=== PATIENT | male | born 1970 | race Two or more races ===

== ENCOUNTER 2020-06-07 07:10 | Outpatient (REF) | payer OTHER, SELFPAY ==
--- NOTE | 2020-06-07 07:19 | XR_ITS ---
EXAMINATION: XR LUMBOSACRAL SPINE CLINICAL INFORMATION: Low back pain COMPARISON: 02/01/2010 TECHNIQUE: Three views of the lumbosacral spine. FINDINGS: The lumbar vertebra are normal in height. No vertebral compression fracture or pars interarticularis defect. At L3-L4, there is chronic, mild loss of disc space and anterior vertebral traction osteophyte formation. At L4-L5, there is moderate disc space narrowing, endplate sclerosis and osteophytosis, with minimal retrolisthesis of L4 on L5. The degenerative disc disease of L4-L5 has worsened compared to 02/01/2010. Sacrum and sacroiliac joints are unremarkable. XR/XR lumbar spine 2-3V IMPRESSION: Compared to 02/01/2010, interval worsening discovertebral degenerative change at L4-L5.
== END 2020-06-07 07:11 | disposition home or self-care (01) ==
LOC: HO.XRAY 07:10
PROVIDERS: Visit Provider Internal Medicine
DX: M54.5 Low back pain (principal)
CPT/HCPCS: 72100

== ENCOUNTER 2020-06-08 06:49 | Outpatient (REF) | payer OTHER, SELFPAY ==
[2020-06-08 08:16] LABS: Alanine Aminotransferase 32 U/L (0-40); Albumin Level 4.7 g/dL (3.5-5.0); Alkaline Phosphatase 90 U/L (39-117); Anion Gap 18 (12-20); Aspartate Amino Transferase 28 U/L (5-37); Bilirubin Total 1.2 mg/dL (0.0-1.0); Blood Urea Nitrogen 55 mg/dL (9-16); Calcium 9.6 mg/dL (8.4-10.2); Carbon Dioxide 22 mmol/L (22-29); Chloride 100 mmol/L (96-108); Cholesterol 231 mg/dL; Estimated Glomerular Filt Rate 35; Glucose Random 146 mg/dL (60-115); HDL Cholesterol 24 mg/dL; Potassium 4.8 mmol/l (3.3-5.1); Sodium 135 mmol/L (135-145); Total Protein 8.3 g/dL (6.5-8.0)
[2020-06-08 08:45] LABS: Triglycerides 1417 mg/dL
[2020-06-08 08:57] LABS: Estimated Average Glucose 171 mg/dL; Hemoglobin A1c % 7.6 %
== END 2020-06-08 06:50 | disposition home or self-care (01) ==
LOC: HO.LAB 06:49
PROVIDERS: PCP Internal Medicine; Visit Provider Internal Medicine
DX: E11.29 Type 2 diabetes mellitus with other diabetic kidney complication (principal); E11.40 Type 2 diabetes mellitus with diabetic neuropathy, unspecified; E11.621 Type 2 diabetes mellitus with foot ulcer; E78.1 Pure hyperglyceridemia; I10 Essential (primary) hypertension; M54.5 Low back pain
CPT/HCPCS: 36415; 80053; 80061; 83036

== ENCOUNTER 2020-09-19 11:21 | Outpatient (REF) | payer OTHER, SELFPAY ==
[2020-09-19 12:00] LABS: MANUAL DIFF FLAG NO
[2020-09-19 12:03] LABS: Basophils Percent Auto 0.3 % (0-2); Eosinophils Absolute Auto 0.1 X10*3/uL (0.0-0.4); Eosinophils Percent Auto 1.7 % (0-4); Hematocrit 43.3 % (42-52); Hemoglobin 13.9 g/dl (14.0-18.0); Imm Gran Abs Auto 0.03 X10*3/uL (0.00-0.03); Imm Gran Pct Auto 0.4 % (0.0-0.4); Lymphocytes Absolute Auto 1.1 X10*3/uL (1.2-4.9); Lymphocytes Percent Auto 14.5 % (20-40); Mean Corpuscular HGB Conc 32.1 g/dl (31.0-36.0); Mean Corpuscular Hemoglobin 28.3 pg (27.0-33.0); Mean Corpuscular Volume 88.2 fL (80-98); Mean Platelet Volume 10.7 fL (9.4-12.4); Monocytes Absolute Auto 0.5 X10*3/uL (0.1-1.2); Monocytes Percent Auto 7.1 % (2-11); Neutrophils Absolute Auto 5.7 X10*3/uL (2.0-8.3); Platelet Count 228 X10*3/uL (160-400); Red Blood Count 4.91 X10*6/uL (4.60-5.80); Red Cell Distribution Width 12.9 % (11.0-16.0); White Blood Count 7.5 X10*3/uL (4.8-10.8)
[2020-09-19 12:39] LABS: Alanine Aminotransferase 23 U/L (0-40); Albumin Level 4.9 g/dL (3.5-5.0); Alkaline Phosphatase 65 U/L (39-117); Anion Gap 16 (12-20); Aspartate Amino Transferase 21 U/L (5-37); Bilirubin Total 1.2 mg/dL (0.0-1.0); Blood Urea Nitrogen 40 mg/dL (9-16); Calcium 10.1 mg/dL (8.4-10.2); Carbon Dioxide 28 mmol/L (22-29); Chloride 101 mmol/L (96-108); Cholesterol 151 mg/dL; Estimated Glomerular Filt Rate 29; Glucose Random 143 mg/dL (60-115); HDL Cholesterol 31 mg/dL; LDL Cholesterol Calculated 87 mg/dl; Potassium 5.6 mmol/L (3.3-5.1); Sodium 139 mmol/L (135-145); Total Protein 7.9 g/dL (6.5-8.0); Triglycerides 169 mg/dL; Uric Acid 9.7 mg/dL (3.4-7.0)
[2020-09-19 13:21] LABS: Estimated Average Glucose 148 mg/dL; Hemoglobin A1c % 6.8 %
== END 2020-09-19 11:22 | disposition home or self-care (01) ==
LOC: HO.LAB 11:21
PROVIDERS: PCP Internal Medicine; Visit Provider Internal Medicine
DX: E11.9 Type 2 diabetes mellitus without complications (principal); E78.1 Pure hyperglyceridemia; I10 Essential (primary) hypertension; M10.9 Gout, unspecified
CPT/HCPCS: 36415; 80053; 80061; 83036; 84550; 85025

== ENCOUNTER → 2020-09-26 13:26 | Outpatient (BNVA) | payer SELFPAY | PROVIDERS: PCP Internal Medicine; Visit Provider Internal Medicine | DX: Z02.79 Encounter for issue of other medical certificate (principal) ==

== ENCOUNTER 2021-03-28 14:43 | Outpatient (REF) | payer OTHER, SELFPAY ==
[2021-03-28 15:31] LABS: Estimated Average Glucose 194 mg/dL; Hemoglobin A1c % 8.4 %
[2021-03-28 15:51] LABS: Alanine Aminotransferase 27 U/L (0-40); Albumin Level 4.9 g/dL (3.5-5.0); Alkaline Phosphatase 118 U/L (39-117); Anion Gap 15 (12-20); Aspartate Amino Transferase 24 U/L (5-37); Bilirubin Total 1.5 mg/dL (0.0-1.0); Blood Urea Nitrogen 29 mg/dL (9-16); Calcium 10.2 mg/dL (8.4-10.2); Carbon Dioxide 28 mmol/L (22-29); Chloride 101 mmol/L (96-108); Estimated Glomerular Filt Rate 39; Glucose Random 212 mg/dL (60-115); Potassium 5.1 mmol/L (3.3-5.1); Sodium 139 mmol/L (135-145); Total Protein 8.4 g/dL (6.5-8.0)
[2021-03-28 16:01] LABS: Uric Acid 10.8 mg/dL (3.4-7.0)
[2021-03-28 17:43] LABS: Creatinine Urine 128.49 mg/dL; Microalbum/Creatinine Ratio Ur 217.1 ug/mg cr
== END 2021-03-28 14:44 | disposition home or self-care (01) ==
LOC: HO.LAB 14:43
PROVIDERS: PCP Internal Medicine; Visit Provider Internal Medicine
DX: Z00.01 Encounter for general adult medical examination with abnormal findings (principal); E11.40 Type 2 diabetes mellitus with diabetic neuropathy, unspecified; E11.22 Type 2 diabetes mellitus with diabetic chronic kidney disease; I12.9 Hypertensive chronic kidney disease with stage 1 through stage 4 chronic kidney disease, or unspecified chronic kidney disease; M10.9 Gout, unspecified; N18.32 Chronic kidney disease, stage 3b
CPT/HCPCS: 36415; 80053; 82043; 83036; 84550

== ENCOUNTER 2021-05-10 16:09 | Outpatient (REF) | payer OTHER, SELFPAY ==
--- NOTE | ~2021-05-10 | US_ITS ---
EXAMINATION: US RETROPERITONEAL LIMITED (RENAL ONLY) CLINICAL INFORMATION: CKD, diabetes. COMPARISON: None TECHNIQUE: Real-time imaging of the kidneys. FINDINGS: RIGHT KIDNEY: 11.4 x 7.1 x 5.9 cm (SAG x AP x TRV). The kidney is normal in size, lobulated in contour, and echogenicity. Renal cortical thickness is normal. No calculi or focal parenchymal lesions. No hydronephrosis. There are small echogenic tiny foci, likely small vascular calcifications. LEFT KIDNEY: 11.4 x 7.0 x 6.1 cm (SAG x AP x TRV). The kidney is normal in size, lobulated in contour, and echogenicity. Renal cortical thickness is normal. No calculi or focal parenchymal lesions. No hydronephrosis. There are small echogenic foci, likely vascular calcifications. US/US renal BI IMPRESSION: Lobulated-appearing bilateral kidneys with small echogenic foci, likely vascular calcifications. There are no echogenic stones or hydronephrosis.
== END 2021-05-10 16:10 | disposition home or self-care (01) ==
LOC: HO.US 16:09
PROVIDERS: PCP Internal Medicine; Visit Provider Internal Medicine Hypertension Specialist
DX: E11.22 Type 2 diabetes mellitus with diabetic chronic kidney disease (principal)
CPT/HCPCS: 76775

== ENCOUNTER 2021-08-07 09:54 | Outpatient (REF) | payer OTHER, SELFPAY ==
[2021-08-07 11:07] LABS: Alanine Aminotransferase 46 U/L (0-40); Albumin Level 4.3 g/dL (3.5-5.0); Alkaline Phosphatase 76 U/L (39-117); Anion Gap 10 (12-20); Aspartate Amino Transferase 35 U/L (5-37); Bilirubin Total 0.9 mg/dL (0.0-1.0); Blood Urea Nitrogen 29 mg/dL (9-16); Calcium 9.8 mg/dL (8.4-10.2); Carbon Dioxide 27 mmol/L (22-29); Chloride 106 mmol/L (96-108); Estimated Average Glucose 237 mg/dL; Estimated Glomerular Filt Rate 44; Glucose Fasting 218 mg/dL (60-99); Hemoglobin A1c % 9.9 %; Potassium 4.6 mmol/L (3.3-5.1); Sodium 138 mmol/L (135-145); Total Protein 7.2 g/dL (6.5-8.0)
== END 2021-08-07 09:55 | disposition home or self-care (01) ==
LOC: HO.10HDL 09:54
PROVIDERS: Visit Provider Internal Medicine
DX: E11.65 Type 2 diabetes mellitus with hyperglycemia (principal); I10 Essential (primary) hypertension; M48.061 Spinal stenosis, lumbar region without neurogenic claudication
CPT/HCPCS: 36415; 80053; 83036

== ENCOUNTER 2021-08-29 10:07 | Outpatient (REF) | payer OTHER, SELFPAY ==
--- NOTE | ~2021-08-29 | XR_ITS ---
EXAMINATION: XR FOOT, RIGHT CLINICAL INFORMATION: Charcot foot COMPARISON: 02/22/2016 TECHNIQUE: AP, lateral, and oblique views of the right foot. FINDINGS: There has been progressive deformity of the right foot since the study from 2015. There is increased osseous excrescence at the base of the fifth metatarsal. There is partial fusion across the tarsometatarsal joints with disorganized appearance. There is irregularity at the articulation of the navicular with the medial cuneiform. Subchondral cyst formation at the head of the first digit proximal phalanx, similar to prior. No acute fracture. Progressive erosion at the head of the fifth metatarsal. Heel spur noted. Soft tissue swelling of the forefoot. XR/XR foot RT min 3V IMPRESSION: Progressive disorganized appearance at the midfoot as detailed above. Progressive erosion at the head of the fifth metatarsal.
[2021-08-29 10:31] LABS: MANUAL DIFF FLAG NO
[2021-08-29 11:14] LABS: Basophils Percent Auto 0.5 % (0-2); Eosinophils Absolute Auto 0.2 X10*3/uL (0.0-0.4); Eosinophils Percent Auto 2.5 % (0-4); Hemoglobin 12.8 g/dl (14.0-18.0); Imm Gran Abs Auto 0.04 X10*3/uL (0.00-0.03); Imm Gran Pct Auto 0.7 % (0.0-0.4); Lymphocytes Absolute Auto 1.1 X10*3/uL (1.2-4.9); Lymphocytes Percent Auto 17.9 % (20-40); Mean Corpuscular HGB Conc 33.7 g/dl (31.0-36.0); Mean Corpuscular Hemoglobin 28.4 pg (27.0-33.0); Mean Corpuscular Volume 84.3 fL (80.0-98.0); Mean Platelet Volume 10.1 fL (9.4-12.4); Monocytes Absolute Auto 0.4 X10*3/uL (0.1-1.2); Monocytes Percent Auto 7.3 % (2-11); Neutrophils Absolute Auto 4.3 x10*3/uL (2.0-8.3); Neutrophils Percent Auto 71.1 % (45-73); Platelet Count 220 X10*3/uL (160-400); Red Blood Count 4.51 X10*6/uL (4.60-5.80); Red Cell Distribution Width 12.4 % (11.0-16.0)
[2021-08-29 12:37] LABS: Alanine Aminotransferase 28 U/L (0-40); Albumin Level 4.3 g/dL (3.5-5.0); Alkaline Phosphatase 77 U/L (39-117); Anion Gap 14 (12-20); Aspartate Amino Transferase 20 U/L (5-37); Bilirubin Total 0.9 mg/dL (0.0-1.0); Blood Urea Nitrogen 24 mg/dL (9-16); Carbon Dioxide 25 mmol/L (22-29); Chloride 105 mmol/L (96-108); Estimated Glomerular Filt Rate 53; Glucose Random 187 mg/dL (60-115); Potassium 5.2 mmol/L (3.3-5.1); Sodium 139 mmol/L (135-145); Total Protein 7.4 g/dL (6.5-8.0)
[2021-08-29 13:36] LABS: Creatinine Urine 174.35 mg/dL; Total Protein Urine Random 69 mg/dL (<12)
[2021-08-30 12:06] LABS: Calcium (PTHI) 9.8 mg/dL (8.6-10.3); PTHI 59 pg/mL (16-77)
== END 2021-08-29 10:08 | disposition home or self-care (01) ==
LOC: HO.XRAY 10:07
PROVIDERS: Absent Provider Internal Medicine Hypertension Specialist; PCP Internal Medicine; Visit Provider Internal Medicine
DX: M14.671 Charcot's joint, right ankle and foot (principal); N18.32 Chronic kidney disease, stage 3b; E11.22 Type 2 diabetes mellitus with diabetic chronic kidney disease
CPT/HCPCS: 36415; 73630; 80053; 83970; 84156; 85025

== ENCOUNTER → 2021-10-30 09:24 | Outpatient (BNVA) | payer OTHER, SELFPAY | PROVIDERS: PCP Internal Medicine; Visit Provider Nurse Practitioner Family | DX: M47.816 Spondylosis without myelopathy or radiculopathy, lumbar region (principal) ==

== ENCOUNTER 2021-12-06 09:27 | Outpatient (REF) | payer OTHER, SELFPAY ==
[2021-12-06 10:41] LABS: Alanine Aminotransferase 21 U/L (0-40); Albumin Level 4.5 g/dL (3.5-5.0); Alkaline Phosphatase 97 U/L (39-117); Anion Gap 14 (12-20); Aspartate Amino Transferase 16 U/L (5-37); Bilirubin Total 1.8 mg/dL (0.0-1.0); Blood Urea Nitrogen 25 mg/dL (9-16); Calcium 9.3 mg/dL (8.4-10.2); Carbon Dioxide 23 mmol/L (22-29); Chloride 104 mmol/L (96-108); Cholesterol 199 mg/dL; Estimated Glomerular Filt Rate 47; Glucose Fasting 233 mg/dL (60-99); HDL Cholesterol 31 mg/dL; LDL Cholesterol Calculated 93 mg/dl; Potassium 4.8 mmol/L (3.3-5.1); Sodium 136 mmol/L (135-145); Total Protein 7.5 g/dL (6.5-8.0); Triglycerides 375 mg/dL
[2021-12-06 10:45] LABS: Estimated Average Glucose 226 mg/dL; Hemoglobin A1c % 9.5 %
[2021-12-06 11:02] LABS: Thyroid Stimulating Hormone 1.07 uIU/mL (0.32-4.0)
== END 2021-12-06 09:28 | disposition home or self-care (01) ==
LOC: HO.10HDL 09:27
PROVIDERS: Visit Provider Internal Medicine
DX: E11.22 Type 2 diabetes mellitus with diabetic chronic kidney disease (principal); E66.8 Other obesity; I10 Essential (primary) hypertension
CPT/HCPCS: 36415; 80053; 80061; 83036; 84443

== ENCOUNTER 2022-01-23 07:25 | Outpatient (REF) | payer OTHER, SELFPAY ==
--- NOTE | ~2022-01-23 | FL_ITS ---
EXAMINATION: XR FL WITH IMAGES CLINICAL INFORMATION: Spondylosis without myelopathy or radiculopathy, lumbar region. COMPARISON: 06/07/2020 TECHNIQUE: Fluoroscopy performed by Dr. Romie Hardwick. Fluoroscopy Time: 0.3 minutes. Cumulative Dose: 13.5 mGy. DAP: 2.05 Gy-cm2. Images: 3. FINDINGS: Images demonstrate needles and contrast adjacent to the L3-L4, L4-L5, and L5-S1 facets bilaterally. FL/FL guidance in treatment room IMPRESSION: Fluoroscopy for pain management procedure.
== END 2022-01-23 07:26 | disposition home or self-care (01) ==
LOC: HO.RADIR 07:25
PROVIDERS: Visit Provider Internal Medicine
DX: M47.816 Spondylosis without myelopathy or radiculopathy, lumbar region (principal); M53.9 Dorsopathy, unspecified
CPT/HCPCS: 64493; 64494

== ENCOUNTER 2022-04-04 11:42 | Outpatient (REF) | payer OTHER, SELFPAY ==
[2022-04-04 13:54] LABS: Estimated Average Glucose 209 mg/dL; Hemoglobin A1c % 8.9 %
[2022-04-04 14:02] LABS: Alanine Aminotransferase 45 U/L (0-40); Albumin Level 4.4 g/dL (3.5-5.0); Alkaline Phosphatase 91 U/L (39-117); Anion Gap 16 (12-20); Aspartate Amino Transferase 90 U/L (5-37); Bilirubin Total 1.3 mg/dL (0.0-1.0); Blood Urea Nitrogen 47 mg/dL (9-16); Calcium 9.8 mg/dL (8.4-10.2); Carbon Dioxide 23 mmol/L (22-29); Chloride 101 mmol/L (96-108); Estimated Glomerular Filt Rate 33; Glucose Random 210 mg/dL (60-115); Sodium 135 mmol/L (135-145); Total Protein 7.3 g/dL (6.5-8.0); Uric Acid 7.7 mg/dL (3.4-7.0)
[2022-04-04 14:08] LABS: Creatinine Urine 158.48 mg/dL; Microalbum/Creatinine Ratio Ur 92.1 ug/mg cr
== END 2022-04-04 11:43 | disposition home or self-care (01) ==
LOC: HO.10HDL 11:42
PROVIDERS: Visit Provider Internal Medicine
DX: Z00.01 Encounter for general adult medical examination with abnormal findings (principal); E11.65 Type 2 diabetes mellitus with hyperglycemia; E11.22 Type 2 diabetes mellitus with diabetic chronic kidney disease; N18.9 Chronic kidney disease, unspecified; R80.9 Proteinuria, unspecified
CPT/HCPCS: 36415; 80053; 82043; 83036; 84550

== ENCOUNTER 2022-07-24 12:25 | Outpatient (REF) | payer OTHER, SELFPAY ==
[2022-07-24 15:29] LABS: Alanine Aminotransferase 26 U/L (0-40); Albumin Level 4.4 g/dL (3.5-5.0); Alkaline Phosphatase 92 U/L (39-117); Anion Gap 13 (12-20); Aspartate Amino Transferase 23 U/L (5-37); Blood Urea Nitrogen 28 mg/dL (9-16); Calcium 9.7 mg/dL (8.4-10.2); Carbon Dioxide 30 mmol/L (22-29); Chloride 102 mmol/L (96-108); Cholesterol 199 mg/dL; Estimated Glomerular Filt Rate 39; Glucose Fasting 158 mg/dL (60-99); HDL Cholesterol 29 mg/dL; Potassium 4.7 mmol/L (3.3-5.1); Sodium 140 mmol/L (135-145); Total Protein 7.3 g/dL (6.5-8.0); Triglycerides 425 mg/dL
[2022-07-24 15:39] LABS: Estimated Average Glucose 206 mg/dL; Hemoglobin A1c % 8.8 %
== END 2022-07-24 12:26 | disposition home or self-care (01) ==
LOC: HO.10HDL 12:25
PROVIDERS: Absent Provider Internal Medicine Hypertension Specialist; Visit Provider Internal Medicine
DX: E11.21 Type 2 diabetes mellitus with diabetic nephropathy (principal); E11.65 Type 2 diabetes mellitus with hyperglycemia; M10.9 Gout, unspecified; R10.32 Left lower quadrant pain; R74.01 Elevation of levels of liver transaminase levels
CPT/HCPCS: 36415; 80053; 80061; 83036

== ENCOUNTER 2022-10-22 10:56 | Outpatient (REF) | payer OTHER, SELFPAY ==
[2022-10-22 13:58] LABS: Alanine Aminotransferase 28 U/L (0-40); Albumin Level 4.4 g/dL (3.5-5.0); Alkaline Phosphatase 90 U/L (39-117); Anion Gap 15 (12-20); Aspartate Amino Transferase 23 U/L (5-37); Bilirubin Total 0.9 mg/dL (0.0-1.0); Blood Urea Nitrogen 34 mg/dL (9-16); Calcium 9.7 mg/dL (8.4-10.2); Carbon Dioxide 26 mmol/L (22-29); Chloride 100 mmol/L (96-108); Estimated Glomerular Filt Rate 32; Glucose Random 314 mg/dL (60-115); Potassium 4.6 mmol/L (3.3-5.1); Sodium 136 mmol/L (135-145); Total Protein 7.4 g/dL (6.5-8.0)
[2022-10-22 14:00] LABS: Estimated Average Glucose 200 mg/dL; Hemoglobin A1c % 8.6 %
== END 2022-10-22 10:57 | disposition home or self-care (01) ==
LOC: HO.10HDL 10:56
PROVIDERS: Visit Provider Internal Medicine
DX: E11.21 Type 2 diabetes mellitus with diabetic nephropathy (principal); E11.65 Type 2 diabetes mellitus with hyperglycemia; E78.2 Mixed hyperlipidemia; I10 Essential (primary) hypertension
CPT/HCPCS: 36415; 80053; 83036

== ENCOUNTER 2022-12-10 14:50 | Outpatient (AMB) | payer OTHER, SELFPAY ==
[2022-12-10 14:54] VITALS: BP 140/82; PULSE 118; O2SAT 96; BMI 39.3
--- NOTE | 2022-12-10 14:54 | A.OFFVIS_ITS ---
Intake Vital Signs 12/10/22 14:54 Height 6 ft 1 in Weight 298 lb 4.567 oz BMI 39.3 BP 140/82 H Blood Pressure Location Lt brachial Position Sitting Pulse 118 H Pulse Source Pulse Oximeter Pulse Oximetry (%) 96 Oxygen Delivery Method Room Air Intake Visit Reasons: T2DM Intake Note: New patient here today for Type 2 Diabetes Mellitus. Previously managed by PCP. Last Diabetic Eye exam:2021 Last Podiatry Visit: Doesn't see a social service manager Random Glucose: 309mg/dl HgA1C: 8.6% 10/22/2022 Allergies No Known Allergies Allergy (Verified 12/10/22 14:55) Medication List - Last Reconciled 12/10/22 by Michael Andrew MD allopurinol 300 mg PO DAILY amlodipine 10 mg PO DAILY atorvastatin 40 mg PO DAILY carvedilol 25 mg PO BID colchicine 0.6 mg PO QID PRN dulaglutide (Trulicity) mg subcut QWEEK fenofibrate 160 mg PO DAILY gabapentin 800 mg PO DAILY insulin glargine (Lantus Solostar U-100 Insulin) units subcut insulin lispro (Humalog KwikPen (U-100) Insulin) subcut omeprazole 20 mg PO DAILY telmisartan-hydrochlorothiazid 80-25 mg 1 tab PO DAILY tizanidine 4 mg PO BEDTIME PRN HPI HPI Comments History of Present Illness Details 52 YO M who is seen in consultation for T2DM at the request of PCP. He has CKD stage IIIB Initially diagnosed with T2DM in 20 yrs ago. Never saw endo . Was initially started on treatment with metformin . Current regimen Lantus 40 units . Humalog 30 units premeals Trulicity not sure what dose Admits to noncompliance to insulin and Trulicity Per the CGM Yahir CGMS is active 42 % of time . data the patient's predicted A1C is 8.4 % Avg glucose is 213 . Variability of 20.8 The patient's blood sugars were in target 25% of the time, above target 75% of the time, and below target 0% of the time Not Reports low sugars . Family history of T2DM in mother ghas Type 2 DM . Has eyes checked yearly, last eye exam last yr , denies retinopathy. Denies neuropathy, not sees podiatry. Has nephropathy, on MAURICIO/ARB. . Has HLD, on statin. Denies CAD. Not Had diabetes education. 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 Absence of acromegalic features. Neck exam reveals nl size thyroid about 15 gms. No thyroid nodules palpable. No carotid bruits present. Lungs CTA. Heart S1 S2, Reg R/R. No M/R/ G. Skin exam reveals absence of vitiligo or acanthosis nigricans. Abdominal exam reveals Soft NT/ND with NA BS. No organomegaly present. Neck Other: . Extrem Other: Visual exam of foot performed. There is amputation of the left 3rd toe No ulcerations or open lesions. No onchomycosis, no callouses.Pulses 2 + distally Sensation decreased to monofilament exam. Vibratory sensation decreased is intact with 128 Hz tuning fork Assessment & Plan Assessment & Plan (1) Uncontrolled type 2 diabetes mellitus with hyperglycemia, with long-term current use of insulin: Code(s): E11.65 - Type 2 diabetes mellitus with hyperglycemia; Z79.4 - prison (current) use of insulin Plan: This is a 52-year-old male with a history of type 2 diabetes in the setting of CKD stage IIIB currently being treated with Trulicity and basal-bolus insulin poor glycemic control . Plan is talk to the patient about being compliant with the insulin . Will have patient see staff educator and reading recovery teacher. We also talked about potential use of an insulin pump in the future. Went over relationship poor glycemic control to development and progression of complications. I also took the liberty of referring the patient to social service manager. Lastly prescribe glucagon rescue Baquimi. I told the patient follow-up with Nephrology Orders: Referrals Diabetes Education Referral E11.65 - Type 2 diabetes mellitus with hyperglycemia, Z79.4 - prison (current) use of insulin Nutrition/Dietitian Referral E11.65 - Type 2 diabetes mellitus with hyperglycemia, Z79.4 - prison (current) use of insulin Podiatry Referral E11.65 - Type 2 diabetes mellitus with hyperglycemia, Z79.4 - prison (current) use of insulin Medications: New glucagon 3 mg/actuation (Baqsimi) 3 mg intranasal ONCE 2 ea 5RF Coding Level of Care Code New Pt Level 5 (66239) Diagnoses Uncontrolled type 2 diabetes mellitus with hyperglycemia, with long-term current use of insulin E11.65; Z79.4 Time Spent (min) 60 Comment Total of 60 minutes was spent reviewing chart, seeing patient and dictating
[2022-12-10 15:10] LABS: Glucose, Whole Blood 309 mg/dL (60-115)
[2022-12-10 15:11] LABS: Glucose, Whole Blood 309 mg/dL (60-115)
== END 2022-12-10 15:42 | disposition home or self-care (01) ==
PROVIDERS: PCP Internal Medicine; Visit Provider Internal Medicine Endocrinology, Diabetes & Metabolism
DX: E11.65 Type 2 diabetes mellitus with hyperglycemia (principal); Z79.4 Long term (current) use of insulin
CPT/HCPCS: 99205

== ENCOUNTER → 2022-12-10 14:50 | Outpatient (BNVA) | payer OTHER, SELFPAY | PROVIDERS: Visit Provider Internal Medicine Endocrinology, Diabetes & Metabolism | DX: E11.65 Type 2 diabetes mellitus with hyperglycemia (principal); Z79.84 Long term (current) use of oral hypoglycemic drugs; Z79.4 Long term (current) use of insulin; Z79.899 Other long term (current) drug therapy | CPT/HCPCS: 82947 ==

== ENCOUNTER 2023-02-05 10:00 | Outpatient (AMB) | payer OTHER, SELFPAY ==
[2023-02-05 10:30] VITALS: BMI 38.1
--- NOTE | 2023-02-05 10:30 | A.OFFVIS_ITS ---
Intake VS Expanded 02/05/23 10:30 02/11/23 09:35 Height 6 ft 1 in 6 ft 1 in Weight 288 lb 12.889 oz 289 lb BMI 38.1 38.1 Intake Visit Reasons: DM Allergies No Known Allergies Allergy (Verified 12/10/22 14:55) HPI Nutrition Presentation Details Pt presents for MNT for T2DM Pt was referred by Dr. Andrew, sleever Pt reports working on reducing carbohydrate intake, verbalizes needing meal re cipes and ideas to continue working on reducing amount of carbohydrates. Reports that most meals at home are made with high starchy foods. Patient also reports in the past he was keeping track foods utilizing and avel which in reducing calories. Patient also has questions regarding insulin pump therapy. Patient was advised to work on meal planning and to learn carbohydrate counting which will be useful in the future if deciding to be on insulin pump therapy. Patient reports that his meals are mainly consisting of a eggs and salad. Today we will focus on choosing lower carb meal options including high-fiber foods and choosing lean protein sources of foods MSU-Svqeysw-Gs.Jeor Equation Height 6 ft 1 in Weight 289 lb Resting Metabolic Rate 2222.53 Calculated Activity Level Sedentary Calories Needed to Maintain Weight 2667.04 Diagnosis Nutrition problem #1 food nutri know defi As related to (etiology) #1 diagnosis As evidenced by (sign/symptom) #1 verbalize inaccurate info Monitoring/Goals Nutrition problem monitoring level of knowledge/skill and weight Most Recent Diabetes Results: Microalb/Creat Ratio 92.1 ug/mg cr 04/04/22 Cholesterol 199 mg/dL 07/24/22 HDL Cholesterol 29 mg/dL 07/24/22 Triglycerides 425 mg/dL 07/24/22 Creatinine 2.16 mg/dL (0.5-1.4) H 10/22/22 Blood Urea Nitrogen 34 mg/dL (9-16) H 10/22/22 Sodium 136 mmol/L (135-145) 10/22/22 Potassium 4.6 mmol/L (3.3-5.1) 10/22/22 Chloride 100 mmol/L (96-108) 10/22/22 Carbon Dioxide 26 mmol/L (22-29) 10/22/22 Calcium 9.7 mg/dL (8.4-10.2) 10/22/22 AST 23 U/L (5-37) 10/22/22 ALT 28 U/L (0-40) 10/22/22 Total Protein 7.4 g/dL (6.5-8.0) 10/22/22 Albumin 4.4 g/dL (3.5-5.0) 10/22/22 [facility] Medical History (Updated 12/10/22 @ 15:06 by Michael Andrew MD) Uncontrolled type 2 diabetes mellitus with hyperglycemia, with long-term current use of insulin Amputation of toe of left foot Family History (Updated 12/10/22 @ 15:03 by Renea Avila MA) Mother Diabetes Father Lung cancer Social History (Updated 12/10/22 @ 15:04 by Renea Avila MA) Household Members: Significant Other Housing: House Alcohol intake: current Alcohol intake frequency: holidays/special occasions only Patient Tobacco Use Status: Never used Tobacco service: No Current occupational status: employed 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 Assessment & Plan Assessment & Plan (1) Uncontrolled type 2 diabetes mellitus with hyperglycemia, with long-term current use of insulin: Code(s): E11.65 - Type 2 diabetes mellitus with hyperglycemia; 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 of insulin Plan: wt: 131 kg Est kcal needs as per MSJ: 2700 (40% carb, 30% protein/fat) Est fluid needs as per 25-30 ml/d: 3300 Est prot per day as per 1 g/kg bw: 131 Recommend fiber intake : 8-10 g per day and gradually increase to 25-28 g per day for women and 35-38 g for men or as tolerated Recommend sodium intake per day : less than 2000 mg Educated patient on: ( R = reviewed V = verbalizes understanding N/R = needs review N/A = not applicable * Food sources of carbohydrate, adequate serving sizes and its role in various health conditions: R * Differences between complex carbohydrates a simple carbohydrates, role of fiber in diet: R * Differences between types of fats and role in diet (mono on saturated fat fatty acids, saturated fatty acids, trans fats): R * Food sources of sodium in salt and healthy modifications for heart health in kidney health: R * Vitamins and minerals: R * Healthy plate method concept: R * Physical activity: Benefits a precaution: R * Hypoglycemia protocol (rule of 15): R * Dietary prevention of Hyperglycemia: R Patient Instructions: keep track of your intake - use phone avel, gradually reduce on portion of carbohydrates by 15-30 g less at meal time Coding Level of Care Code Nutr Indiv Intake (72746) Diagnoses Uncontrolled type 2 diabetes mellitus with hyperglycemia, with long-term current use of insulin E11.65; Z79.4 Time Spent (min) 40
[2023-02-12 12:51] VITALS: BMI 38.1
== END 2023-02-05 11:15 | disposition home or self-care (01) ==
PROVIDERS: PCP Internal Medicine; Visit Provider Dietitian, Registered
DX: E11.65 Type 2 diabetes mellitus with hyperglycemia (principal); Z79.4 Long term (current) use of insulin

== ENCOUNTER → 2023-02-05 10:00 | Outpatient (BNVA) | payer OTHER, SELFPAY | PROVIDERS: PCP Internal Medicine; Visit Provider Dietitian, Registered | DX: E11.65 Type 2 diabetes mellitus with hyperglycemia (principal); Z89.422 Acquired absence of other left toe(s); Z79.4 Long term (current) use of insulin | CPT/HCPCS: 97802 ==

== ENCOUNTER 2023-05-20 12:26 | Outpatient (REF) | payer SELFPAY ==
[2023-05-20 13:24] LABS: MANUAL DIFF FLAG NO
[2023-05-20 13:32] LABS: Basophils Percent Auto 0.3 % (0-2); Eosinophils Absolute Auto 0.1 X10*3/uL (0.0-0.4); Eosinophils Percent Auto 0.9 % (0-4); Hematocrit 41.7 % (42.0-52.0); Hemoglobin 13.1 g/dl (14.0-18.0); Imm Gran Abs Auto 0.02 X10*3/uL (0.00-0.03); Imm Gran Pct Auto 0.2 % (0.0-0.4); Lymphocytes Percent Auto 11.1 % (20-40); Mean Corpuscular HGB Conc 31.4 g/dl (31.0-36.0); Mean Corpuscular Hemoglobin 26.7 pg (27.0-33.0); Mean Corpuscular Volume 85.1 fL (80.0-98.0); Mean Platelet Volume 10.5 fL (9.4-12.4); Neutrophils Absolute Auto 6.9 x10*3/uL (2.0-8.3); Neutrophils Percent Auto 76.5 % (45-73); Platelet Count 207 X10*3/uL (160-400); Red Cell Distribution Width 13.2 % (11.0-16.0)
[2023-05-20 13:42] LABS: Estimated Average Glucose 177 mg/dL; Hemoglobin A1c % 7.8 % (<6.0)
[2023-05-20 13:52] LABS: Alanine Aminotransferase 26 U/L (0-40); Albumin Level 3.8 g/dL (3.5-5.0); Alkaline Phosphatase 82 U/L (39-117); Anion Gap 12 (12-20); Aspartate Amino Transferase 28 U/L (5-37); Bilirubin Total 1.3 mg/dL (0.0-1.0); Blood Urea Nitrogen 20 mg/dL (9-16); Calcium 9.6 mg/dL (8.4-10.2); Carbon Dioxide 27 mmol/L (22-29); Chloride 107 mmol/L (96-108); Cholesterol 197 mg/dL (<200); Estimated Glomerular Filt Rate 48; Glucose Random 156 mg/dL (60-115); HDL Cholesterol 28 mg/dL (>40); LDL Cholesterol Calculated 115 mg/dL (<100); Potassium 4.7 mmol/L (3.3-5.1); Sodium 141 mmol/L (135-145); Total Protein 7.6 g/dL (6.5-8.0); Triglycerides 271 mg/dL (<150); Uric Acid 10.2 mg/dL (3.4-7.0)
[2023-05-20 18:23] LABS: Prostate Specific Antigen Scr 0.55 ng/mL (<0.05-4.0)
[2023-05-21 01:56] LABS: Vitamin B12 444 pg/mL (200-900)
== END 2023-05-20 12:27 | disposition home or self-care (01) ==
LOC: HO.10HDL 12:26
PROVIDERS: Visit Provider Internal Medicine
DX: Z12.5 Encounter for screening for malignant neoplasm of prostate (principal); E11.65 Type 2 diabetes mellitus with hyperglycemia; E78.00 Pure hypercholesterolemia, unspecified; M10.9 Gout, unspecified; I12.9 Hypertensive chronic kidney disease with stage 1 through stage 4 chronic kidney disease, or unspecified chronic kidney disease; E11.22 Type 2 diabetes mellitus with diabetic chronic kidney disease; N18.9 Chronic kidney disease, unspecified; N40.0 Benign prostatic hyperplasia without lower urinary tract symptoms
CPT/HCPCS: 36415; 80053; 80061; 82043; 82570; 82607; 83036; 84153; 84550; 85025

== ENCOUNTER 2023-08-11 10:15 | Outpatient (REF) | payer MEDICAID, SELFPAY ==
[2023-08-11 13:40] LABS: Alanine Aminotransferase 18 U/L (0-40); Albumin Level 4.1 g/dL (3.5-5.0); Alkaline Phosphatase 80 U/L (39-117); Anion Gap 11 (12-20); Aspartate Amino Transferase 20 U/L (5-37); Bilirubin Total 0.9 mg/dL (0.0-1.0); Blood Urea Nitrogen 32 mg/dL (9-16); Calcium 9.6 mg/dL (8.4-10.2); Carbon Dioxide 25 mmol/L (22-29); Chloride 109 mmol/L (96-108); Estimated Glomerular Filt Rate 51; Glucose Random 180 mg/dL (60-115); Potassium 5.2 mmol/L (3.3-5.1); Sodium 140 mmol/L (135-145); Total Protein 7.5 g/dL (6.5-8.0)
[2023-08-11 13:41] LABS: Estimated Average Glucose 148 mg/dL; Hemoglobin A1c % 6.8 % (<6.0)
== END 2023-08-11 10:16 | disposition home or self-care (01) ==
LOC: HO.10HDL 10:15
PROVIDERS: Visit Provider Internal Medicine
DX: Z00.01 Encounter for general adult medical examination with abnormal findings (principal); E11.22 Type 2 diabetes mellitus with diabetic chronic kidney disease; E11.65 Type 2 diabetes mellitus with hyperglycemia; E78.2 Mixed hyperlipidemia; M10.9 Gout, unspecified; N18.9 Chronic kidney disease, unspecified
CPT/HCPCS: 36415; 80053; 83036

== ENCOUNTER 2023-09-11 14:10 | Outpatient (AMB) | payer MEDICAID, SELFPAY ==
[2023-09-11 14:11] VITALS: BP 140/86; PULSE 77; O2SAT 99; BMI 34.8
--- NOTE | 2023-09-11 14:11 | HO.NEPHOV ---
HPI HPI Comments History of Present Illness Details Middle-aged man with a history of longstanding diabetes mellitus of more than 20 years. Overall blood sugar has been well controlled. He was found to have CKD with a serum creatinine 1.2 mg/dL with urine albumin creatinine ratio of 461 and hence this referral. He is history of hypertension. Blood pressure has been well controlled as well. He has had few episodes of mild hyperkalemia with a potassium 5.6. He has not on any MAURICIO inhibitors. I suspect hyperkalemia could have been a reason why he has not on MAURICIO inhibitors. Today he has no new complaints today. He has no headache nausea vomiting no abdominal pain or constipation no urinary symptoms no fever no rash. 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 Vital Signs 09/11/23 14:11 Height 6 ft 1 in Weight 264 lb BMI 34.8 BP 140/86 H Blood Pressure Location Lt brachial Position Sitting Pulse 77 Pulse Source Pulse Oximeter Pulse Oximetry (%) 99 Oxygen Delivery Method Room Air Physical Exam Vital Signs: Last Vital Signs Pulse 77 09/11/23 14:11 BP 140/86 H 09/11/23 14:11 Pulse Ox 99 09/11/23 14:11 Oxygen Delivery Method Room Air 09/11/23 14:11 BMI result Body Mass Index 34.8 Const General: comfortable Nutritional Appearance: well nourished Orientation/consciousness: patient oriented x3 HEENT Head: No normal to inspection Mouth: moist mucous membranes Neck Neck: Yes supple and Yes no JVD Resp Auscultation: clear to auscultation bilaterally, no rales and rub present Cardio Jugular venous distension: no JVD Palpation: no palpable S3 and no palpable S4 Heart sounds: no rubs GI Palpation (GI): Soft to palpation and nontender Percussion: No Fluid wave present General: Yes no CVA tenderness Back/Spine/Pelvis Back: no CVA tenderness Skin General skin exam: no rashes or lesions noted Neuro General: patient oriented x3 Extrem General: Yes no pedal edema and No clubbing Assessment & Plan Assessment & Plan (1) CKD (chronic kidney disease) stage 3, GFR 30-59 ml/min: Code(s): N18.30 - Chronic kidney disease, stage 3 unspecified Plan: . Middle-aged man with stage 3 chronic kidney disease due to underlying diabetic kidney disease. He has non nephrotic range proteinuria again most likely due to underlying diabetic kidney disease. Goal is to slow the progression of renal disease I have discussed importance of tight control of blood pressure and blood sugar to slow the progression. Hemoglobin A1c should be maintained less than 7% and blood pressure less than 130/80 mm Hg. I will recommend starting an MAURICIO inhibitor or ARB for renal protection. With your permission I will start losartan 25 mg once a day and monitor serum creatinine potassium. He would benefit from SGLT2 inhibitors. Continue to avoid nephrotoxic agents including NSAIDs and IV contrast dyes. Blood pressure is acceptable at this time. He should stay on low-sodium diet Would continue to screen for anemia and secondary hyperparathyroidism. History of gout. He is currently on allopurinol. I have discussed low purine diet as well. We will recheck uric acid levels prior to next visit . Orders: Orders Comprehensive Met. Panel 3 Weeks N18.30 - Chronic kidney disease, stage 3 unspecified, N18.9 - Chronic kidney disease, unspecified Creatinine Urine 3 Weeks N05.9 - Unspecified nephritic syndrome with unspecified morphologic changes, N18.30 - Chronic kidney disease, stage 3 unspecified Sodium Urine Random 3 Weeks N18.30 - Chronic kidney disease, stage 3 unspecified, N18.9 - Chronic kidney disease, unspecified Total Protein Urine Random 3 Weeks N18.30 - Chronic kidney disease, stage 3 unspecified UA and rflx microscopic 3 Weeks N18.30 - Chronic kidney disease, stage 3 unspecified Uric Acid 3 Weeks N18.30 - Chronic kidney disease, stage 3 unspecified Parathyroid Hormone Intact 3 Weeks N18.30 - Chronic kidney disease, stage 3 unspecified Complete Blood Count Auto Diff 3 Weeks N18.30 - Chronic kidney disease, stage 3 unspecified Medications: New losartan 25 mg PO DAILY 30 tabs 3RF Coding Level of Care Code New Pt Level 4 (35646) Diagnoses CKD (chronic kidney disease) stage 3, GFR 30-59 ml/min N18.30 Results Reviewed Nephrology Results: Hgb 13.1 g/dl (14.0-18.0) L 05/20/23 WBC 9.0 X10*3/uL (4.8-10.8) 05/20/23 Plt Count 207 X10*3/uL (160-400) 05/20/23 Sodium 140 mmol/L (135-145) 08/11/23 Potassium 5.2 mmol/L (3.3-5.1) H 08/11/23 Chloride 109 mmol/L (96-108) H 08/11/23 Carbon Dioxide 25 mmol/L (22-29) 08/11/23 BUN 32 mg/dL (9-16) H 08/11/23 Creatinine 1.46 mg/dL (0.5-1.4) H 08/11/23 Calcium 9.6 mg/dL (8.4-10.2) 08/11/23 Urine Creatinine 278.90 mg/dL 05/20/23
== END 2023-09-11 14:33 | disposition home or self-care (01) ==
PROVIDERS: PCP Internal Medicine; Referring Provider Internal Medicine; Visit Provider Internal Medicine Hypertension Specialist
DX: N18.30 Chronic kidney disease, stage 3 unspecified (principal)
CPT/HCPCS: 99204

== ENCOUNTER → 2023-09-11 14:10 | Outpatient (BNVA) | payer MEDICAID, SELFPAY | PROVIDERS: PCP Internal Medicine; Referring Provider Internal Medicine; Visit Provider Internal Medicine Hypertension Specialist | DX: N18.30 Chronic kidney disease, stage 3 unspecified (principal) | CPT/HCPCS: 99202 ==

== ENCOUNTER 2023-10-06 10:02 | Outpatient (REF) | payer MEDICAID, SELFPAY ==
[2023-10-06 10:22] LABS: MANUAL DIFF FLAG NO
[2023-10-06 10:33] LABS: Appearance Urine Clear; Color Urine Yellow; Glucose Urine UA Negative (Negative); Leukocyte Esterase Urine Moderate (2+) (Negative); Nitrite Urine Negative (Negative); PH 5.5 (5.0-9.0); UMIC TRIGGER UA YES; Urine Blood Small (1+) (Negative); Urine Ketones Negative (Negative); Urine Protein 100 (2+) mg/dL (Neg-Trace)
[2023-10-06 10:47] LABS: Bacteria Urine None Seen (None Seen); Basophils Percent Auto 0.5 % (0-2); Eosinophils Absolute Auto 0.1 X10*3/uL (0.0-0.4); Eosinophils Percent Auto 1.8 % (0-4); Hematocrit 40.2 % (42.0-52.0); Hemoglobin 12.9 g/dl (14.0-18.0); Hyaline Casts Urine 0-2 /LPF (0-2); Imm Gran Abs Auto 0.02 X10*3/uL (0.00-0.03); Imm Gran Pct Auto 0.3 % (0.0-0.4); Lymphocytes Absolute Auto 0.9 X10*3/uL (1.2-4.9); Lymphocytes Percent Auto 14.7 % (20-40); Mean Corpuscular HGB Conc 32.1 g/dl (31.0-36.0); Mean Corpuscular Hemoglobin 27.3 pg (27.0-33.0); Mean Corpuscular Volume 85.2 fL (80.0-98.0); Mean Platelet Volume 10.6 fL (9.4-12.4); Monocytes Absolute Auto 0.4 X10*3/uL (0.1-1.2); Monocytes Percent Auto 6.7 % (2-11); Neutrophils Absolute Auto 4.6 x10*3/uL (2.0-8.3); Platelet Count 167 X10*3/uL (160-400); Red Blood Count 4.72 X10*6/uL (4.60-5.80); Red Cell Distribution Width 13.4 % (11.0-16.0); WBC Urine 21-50 /HPF (0-5)
[2023-10-06 11:17] LABS: Parathyroid Hormone Intact 80.6 pg/mL (8.7-77.1)
[2023-10-06 11:22] LABS: Alanine Aminotransferase 15 U/L (0-40); Albumin Level 3.9 g/dL (3.5-5.0); Alkaline Phosphatase 82 U/L (39-117); Anion Gap 13 (12-20); Aspartate Amino Transferase 15 U/L (5-37); Bilirubin Total 0.8 mg/dL (0.0-1.0); Blood Urea Nitrogen 33 mg/dL (9-16); Calcium 9.9 mg/dL (8.4-10.2); Carbon Dioxide 27 mmol/L (22-29); Chloride 105 mmol/L (96-108); Estimated Glomerular Filt Rate 52; Glucose Random 162 mg/dL (60-115); Potassium 4.7 mmol/L (3.3-5.1); Sodium 140 mmol/L (135-145); Total Protein 7.4 g/dL (6.5-8.0); Uric Acid 8.9 mg/dL (3.4-7.0)
[2023-10-06 11:35] LABS: Creatinine Urine 146.39 mg/dL; Total Protein Urine Random 77 mg/dL (<12)
== END 2023-10-06 10:03 | disposition home or self-care (01) ==
LOC: HO.10HDL 10:02
PROVIDERS: Visit Provider Internal Medicine Hypertension Specialist
DX: N05.9 Unspecified nephritic syndrome with unspecified morphologic changes (principal); N18.30 Chronic kidney disease, stage 3 unspecified
CPT/HCPCS: 36415; 80053; 81001; 82570; 83970; 84156; 84300; 84550; 85025

== ENCOUNTER 2023-10-07 13:50 | Outpatient (AMB) | payer MEDICAID, SELFPAY ==
[2023-10-07 14:03] VITALS: BP 118/84; PULSE 113; O2SAT 97; BMI 34.6
--- NOTE | 2023-10-07 14:03 | HO.NEPHOV ---
Vital Signs 10/07/23 14:03 Height 6 ft 1 in Weight 262 lb BMI 34.6 BP 118/84 Blood Pressure Location Lt brachial Position Sitting Pulse 113 H Pulse Source Pulse Oximeter Pulse Oximetry (%) 97 Oxygen Delivery Method Room Air Intake Visit Reasons: Ckd, stage 3/ 1 MO FU [employer]asting Required: No Accompanied by: Self / Same As Patient Allergies No Known Allergies Allergy (Verified 10/07/23 14:05) HPI Comments Details: Middle-aged man with a history of longstanding diabetes mellitus of more than 20 years. Overall blood sugar has been well controlled. He was found to have CKD with a serum creatinine 1.2 mg/dL with urine albumin creatinine ratio of 461 and hence this referral. He is history of hypertension. Blood pressure has been well controlled as well. He has had few episodes of mild hyperkalemia with a potassium 5.6. He has not on any MAURICIO inhibitors. I suspect hyperkalemia could have been a reason why he has not on MAURICIO inhibitors. Today he has no new complaints today. He has no headache nausea vomiting no abdominal pain or constipation no urinary symptoms no fever no rash. 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 Physical Exam Vital Signs: Last Vital Signs Pulse 113 H 10/07/23 14:03 BP 118/84 10/07/23 14:03 Pulse Ox 97 10/07/23 14:03 Oxygen Delivery Method Room Air 10/07/23 14:03 BMI result Body Mass Index 34.6 Results Reviewed Nephrology Results: Hgb 12.9 g/dl (14.0-18.0) L 10/06/23 WBC 6.0 X10*3/uL (4.8-10.8) 10/06/23 Plt Count 167 X10*3/uL (160-400) 10/06/23 Sodium 140 mmol/L (135-145) 10/06/23 Potassium 4.7 mmol/L (3.3-5.1) 10/06/23 Chloride 105 mmol/L (96-108) 10/06/23 Carbon Dioxide 27 mmol/L (22-29) 10/06/23 BUN 33 mg/dL (9-16) H 10/06/23 Creatinine 1.42 mg/dL (0.5-1.4) H 10/06/23 Calcium 9.9 mg/dL (8.4-10.2) 10/06/23 PTH Intact 80.6 pg/mL (8.7-77.1) H 10/06/23 Urine Protein 100 (2+) mg/dL (Neg-Trace) H 10/06/23 Urine Creatinine 146.39 mg/dL 10/06/23 Assessment & Plan Assessment & Plan (1) CKD (chronic kidney disease) stage 3, GFR 30-59 ml/min: Code(s): N18.30 - Chronic kidney disease, stage 3 unspecified Category: Medical Plan: . Middle-aged man with stage 3 chronic kidney disease due to underlying diabetic kidney disease. He has non nephrotic range proteinuria again most likely due to underlying diabetic kidney disease. Goal is to slow the progression of renal disease I have discussed importance of tight control of blood pressure and blood sugar to slow the progression. Hemoglobin A1c should be maintained less than 7% and blood pressure less than 130/80 mm Hg. I will recommend keeping him on start losartan 25 mg once a day and monitor serum creatinine potassium. He would benefit from SGLT2 inhibitors. Continue to avoid nephrotoxic agents including NSAIDs and IV contrast dyes. Blood pressure is acceptable at this time. He should stay on low-sodium diet Would continue to screen for anemia and secondary hyperparathyroidism. History of gout. He is currently on allopurinol. I have discussed low purine diet as well. Uric acid was 8.9 . Orders: Orders Basic Metabolic Panel 4 Months N18.30 - Chronic kidney disease, stage 3 unspecified Creatinine Urine 4 Months N05.9 - Unspecified nephritic syndrome with unspecified morphologic changes, N18.30 - Chronic kidney disease, stage 3 unspecified Total Protein Urine Random 4 Months N18.30 - Chronic kidney disease, stage 3 unspecified UA and rflx microscopic 4 Months N18.30 - Chronic kidney disease, stage 3 unspecified Complete Blood Count no Diff 4 Months N18.30 - Chronic kidney disease, stage 3 unspecified Coding Level of Care Code Est Pt Level 4 (46300) Diagnoses CKD (chronic kidney disease) stage 3, GFR 30-59 ml/min N18.30
== END 2023-10-07 14:26 | disposition home or self-care (01) ==
PROVIDERS: PCP Internal Medicine; Referring Provider Internal Medicine; Visit Provider Internal Medicine Hypertension Specialist
DX: N18.30 Chronic kidney disease, stage 3 unspecified (principal)
CPT/HCPCS: 99214

== ENCOUNTER → 2023-10-07 13:50 | Outpatient (BNVA) | payer MEDICAID, SELFPAY | PROVIDERS: PCP Internal Medicine; Visit Provider Internal Medicine Hypertension Specialist | DX: E11.22 Type 2 diabetes mellitus with diabetic chronic kidney disease (principal); N18.30 Chronic kidney disease, stage 3 unspecified | CPT/HCPCS: 99212 ==

== ENCOUNTER 2024-01-30 09:49 | Outpatient (REF) | payer MEDICAID, SELFPAY ==
[2024-01-30 11:56] LABS: Alanine Aminotransferase 20 U/L (0-40); Alkaline Phosphatase 86 U/L (39-117); Anion Gap 7 (12-20); Aspartate Amino Transferase 21 U/L (5-37); Bilirubin Total 1.4 mg/dL (0.0-1.0); Blood Urea Nitrogen 43 mg/dL (9-16); Calcium 9.8 mg/dL (8.4-10.2); Carbon Dioxide 29 mmol/L (22-29); Chloride 109 mmol/L (96-108); Cholesterol 144 mg/dL (<200); Estimated Glomerular Filt Rate 48; Glucose Random 147 mg/dL (60-115); HDL Cholesterol 26 mg/dL (>40); LDL Cholesterol Calculated 99 mg/dL (<100); Potassium 5.1 mmol/L (3.3-5.1); Sodium 140 mmol/L (135-145); Total Protein 7.1 g/dL (6.5-8.0); Triglycerides 98 mg/dL (<150)
[2024-01-30 12:32] LABS: Estimated Average Glucose 128 mg/dL; Hemoglobin A1c % 6.1 % (<6.0)
== END 2024-01-30 09:50 | disposition home or self-care (01) ==
LOC: HO.LAB 09:49
PROVIDERS: PCP Internal Medicine; Visit Provider Internal Medicine
DX: I12.9 Hypertensive chronic kidney disease with stage 1 through stage 4 chronic kidney disease, or unspecified chronic kidney disease (principal); E11.22 Type 2 diabetes mellitus with diabetic chronic kidney disease; N18.9 Chronic kidney disease, unspecified; E11.621 Type 2 diabetes mellitus with foot ulcer
CPT/HCPCS: 36415; 80053; 80061; 83036

== ENCOUNTER 2024-03-02 09:03 | Outpatient (REF) | payer MEDICAID, SELFPAY ==
[2024-03-02 11:12] LABS: Appearance Urine Cloudy; Color Urine Dark Yellow; Glucose Urine UA Negative (Negative); Leukocyte Esterase Urine Negative (Negative); Nitrite Urine Negative (Negative); UMIC TRIGGER UA YES; Urine Blood Negative (Negative); Urine Ketones Trace mg/dL (Negative); Urine Protein 100 (2+) mg/dL (Neg-Trace)
[2024-03-02 11:21] LABS: Hematocrit 36.6 % (42.0-52.0); Hemoglobin 12.7 g/dl (14.0-18.0); Mean Corpuscular HGB Conc 34.7 g/dl (31.0-36.0); Mean Corpuscular Hemoglobin 27.7 pg (27.0-33.0); Mean Corpuscular Volume 79.9 fL (80.0-98.0); Mean Platelet Volume 10.7 fL (9.4-12.4); Platelet Count 202 X10*3/uL (160-400); Red Blood Count 4.58 X10*6/uL (4.60-5.80); Red Cell Distribution Width 12.8 % (11.0-16.0); White Blood Count 10.3 X10*3/uL (4.8-10.8)
[2024-03-02 11:26] LABS: Anion Gap 14 (12-20); Blood Urea Nitrogen 49 mg/dL (9-16); Calcium 10.1 mg/dL (8.4-10.2); Carbon Dioxide 23 mmol/L (22-29); Chloride 105 mmol/L (96-108); Estimated Glomerular Filt Rate 38; Glucose Random 185 mg/dL (60-115); Sodium 137 mmol/L (135-145)
[2024-03-02 11:35] LABS: Bacteria Urine None Seen (None Seen); Granular Casts Urine Present; RBC Urine 0-2 /HPF (0-2); WBC Urine 0-5 /HPF (0-5)
[2024-03-02 11:54] LABS: Creatinine Urine 245.89 mg/dL; Total Protein Urine Random 143 mg/dL (<12)
== END 2024-03-02 09:04 | disposition home or self-care (01) ==
LOC: HO.10HDL 09:03
PROVIDERS: Visit Provider Internal Medicine Hypertension Specialist
DX: N05.9 Unspecified nephritic syndrome with unspecified morphologic changes (principal); N18.30 Chronic kidney disease, stage 3 unspecified
CPT/HCPCS: 36415; 80048; 81001; 82570; 84156; 85027

== ENCOUNTER 2024-03-22 14:12 | Outpatient (REF) | payer MEDICAID, SELFPAY ==
[2024-03-22 15:45] LABS: Appearance Urine Clear; Color Urine Yellow; Glucose Urine UA Negative (Negative); Leukocyte Esterase Urine Negative (Negative); Nitrite Urine Negative (Negative); PH 5.5 (5.0-9.0); Specific Gravity - Urine 1.015 (1.005-1.025); UMIC TRIGGER UA YES; Urine Blood Negative (Negative); Urine Ketones Negative (Negative); Urine Protein 30 (1+) mg/dL (Neg-Trace)
[2024-03-22 15:47] LABS: Bacteria Urine None Seen (None Seen); Hyaline Casts Urine 0-2 /LPF (0-2); RBC Urine 0-2 /HPF (0-2); Squamous Epithelial Cell Urine 0-2 /HPF (0-2); WBC Urine 0-5 /HPF (0-5)
[2024-03-22 16:35] LABS: Anion Gap 12 (12-20); Blood Urea Nitrogen 55 mg/dL (9-16); Calcium 9.7 mg/dL (8.4-10.2); Carbon Dioxide 25 mmol/L (22-29); Chloride 106 mmol/L (96-108); Estimated Glomerular Filt Rate 22; Glucose Random 128 mg/dL (60-115); Potassium 5.2 mmol/L (3.3-5.1); Sodium 138 mmol/L (135-145)
== END 2024-03-22 14:13 | disposition home or self-care (01) ==
LOC: HO.LAB 14:12
PROVIDERS: PCP Internal Medicine; Visit Provider Internal Medicine Hypertension Specialist
DX: E11.22 Type 2 diabetes mellitus with diabetic chronic kidney disease (principal); E11.65 Type 2 diabetes mellitus with hyperglycemia; N18.30 Chronic kidney disease, stage 3 unspecified; Z79.4 Long term (current) use of insulin; Z89.422 Acquired absence of other left toe(s)
CPT/HCPCS: 36415; 80048; 81001; 99212

== ENCOUNTER 2024-03-22 14:12 | Outpatient (AMB) | payer MEDICAID, SELFPAY ==
[2024-03-22 14:14] VITALS: BP 104/64; PULSE 81; O2SAT 98; BMI 33.9
--- NOTE | 2024-03-22 14:14 | HO.NEPHOV_ITS ---
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 Required: No Accompanied by: Self / Same As Patient Allergies No Known Allergies Allergy (Verified 03/22/24 14:16) Medication List - Last Reconciled 03/22/24 by Paolo Greene MD allopurinol 300 mg PO DAILY amlodipine 10 mg PO DAILY aspirin 81 mg PO DAILY carvedilol 25 mg PO BID colchicine 0.6 mg PO BID PRN indomethacin 50 mg PO TID PRN insulin glargine (Lantus Solostar U-100 Insulin) units subcut insulin lispro (Humalog KwikPen (U-100) Insulin) subcut losartan 25 mg PO DAILY rosuvastatin 40 mg PO BEDTIME HPI Comments Details: Middle-aged man with a history of longstanding diabetes mellitus of more than 20 years. Overall blood sugar has been well controlled. He was found to have CKD with a serum creatinine 1.2 mg/dL with urine albumin creatinine ratio of 461 and hence this referral. He is history of hypertension. Blood pressure has been well controlled as well. He has had few episodes of mild hyperkalemia with a potassium 5.6. He has not on any MAURICIO inhibitors. I suspect hyperkalemia could have been a reason why he has not on MAURICIO inhibitors. Today he has no new complaints today. He has no headache nausea vomiting no abdominal pain or constipation no urinary symptoms no fever no rash. All systems were reviewed 10/07/23 Tolerating Losartan Still has foot ulcer 03/22/24 Underwent foot surgery Now on BACTRIM for the past 1 week for a total of 3 weeks [facility] Medical History (Updated 09/11/23 @ 14:31 by Paolo Greene MD) Uncontrolled type 2 diabetes mellitus with hyperglycemia, with long-term current use of insulin Amputation of toe of left foot Family History Mother Diabetes Father Lung cancer Social History Household Members: Significant Other Housing: House Alcohol intake: current Alcohol intake frequency: holidays/special occasions only Patient Tobacco Use Status: Never used Tobacco service: No Current occupational status: employed 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 Physical Exam Vital Signs: Last Vital Signs Pulse 81 03/22/24 14:14 BP 104/64 03/22/24 14:14 Pulse Ox 98 03/22/24 14:14 Oxygen Delivery Method Room Air 03/22/24 14:14 BMI result Body Mass Index 33.9 Const General: comfortable; No acute distress Orientation/consciousness: patient oriented x3 Eyes General: appearance normal, both eyes and all related structures Visual Shultz: normal visual shultz by confrontation Neck Neck: Yes supple and Yes no JVD Resp Effort & Inspection: normal respiratory effort and respiratory effort not decreased Auscultation: rhonchi Cardio Palpation: no palpable S3 and no palpable S4 Heart sounds: no rubs GI Inspection: Yes normal to inspection Palpation (GI): Soft to palpation Percussion: Yes normal to percussion Auscultation: normal bowel sounds General: Yes no CVA tenderness Back/Spine/Pelvis Back: no CVA tenderness Skin General skin exam: no petechiae and no purpura Neuro General: patient oriented x3 and no focal motor deficits Extrem General: No clubbing and No edema Results Reviewed Nephrology Results: Hgb 12.7 g/dl (14.0-18.0) L 03/02/24 WBC 10.3 X10*3/uL (4.8-10.8) 03/02/24 Plt Count 202 X10*3/uL (160-400) 03/02/24 Sodium 137 mmol/L (135-145) 03/02/24 Potassium 5.0 mmol/L (3.3-5.1) 03/02/24 Chloride 105 mmol/L (96-108) 03/02/24 Carbon Dioxide 23 mmol/L (22-29) 03/02/24 BUN 49 mg/dL (9-16) H 03/02/24 Creatinine 1.89 mg/dL (0.5-1.4) H 03/02/24 Calcium 10.1 mg/dL (8.4-10.2) 03/02/24 PTH Intact 80.6 pg/mL (8.7-77.1) H 10/06/23 Urine Protein 100 (2+) mg/dL (Neg-Trace) H 03/02/24 Urine Creatinine 245.89 mg/dL 03/02/24 Assessment & Plan Assessment & Plan (1) CKD (chronic kidney disease) stage 3, GFR 30-59 ml/min: Code(s): N18.30 - Chronic kidney disease, stage 3 unspecified Category: Medical Plan: . Middle-aged man with stage 3 chronic kidney disease due to underlying diabetic kidney disease. He has non nephrotic range proteinuria again most likely due to underlying diabetic kidney disease. Goal is to slow the progression of renal disease I have discussed importance of tight control of blood pressure and blood sugar to slow the progression. Hemoglobin A1c should be maintained less than 7% and blood pressure less than 130/80 mm Hg. I will recommend keeping him on start losartan 25 mg once a day and monitor serum creatinine potassium. He would benefit from SGLT2 inhibitors. Continue to avoid nephrotoxic agents including NSAIDs and IV contrast dyes. Blood pressure is acceptable at this time. He should stay on low-sodium diet Would continue to screen for anemia and secondary hyperparathyroidism. History of gout. He is currently on allopurinol. I have discussed low purine diet as well. Uric acid was 8.9 Continue to avoid nephrotoxins including Bactrim Check LAbs today and decide on Bactrim . Orders: Orders Basic Metabolic Panel Today N18.30 - Chronic kidney disease, stage 3 unspecified Basic Metabolic Panel Today N18.30 - Chronic kidney disease, stage 3 unspecified Coding Level of Care Code Est Pt Level 4 (66671) Diagnoses CKD (chronic kidney disease) stage 3, GFR 30-59 ml/min N18.30
== END 2024-03-22 16:26 | disposition home or self-care (01) ==
PROVIDERS: PCP Internal Medicine; Visit Provider Internal Medicine Hypertension Specialist
DX: N17.9 Acute kidney failure, unspecified (principal); E11.22 Type 2 diabetes mellitus with diabetic chronic kidney disease; N18.30 Chronic kidney disease, stage 3 unspecified
CPT/HCPCS: 99214

== ENCOUNTER 2024-04-07 15:35 | Outpatient (REF) | payer MEDICAID, SELFPAY ==
--- NOTE | 2024-04-07 16:31 | MHC.AU.MED ---
Medical Clearance for Hearing Instrumentation Date: 04/07/24 Patient Name: Benjamin Bautista Date of : 1970 Primary Care Provider: Referring Provider: Devi Moran MD We have seen your patient on 04/07/24 and have determined that they are a candidate for amplification (See accompanying report). Specifically, they would benefit from: Hearing aid use in both ears There is a statute that addresses Medical Evaluation Requirements prior to fitting a patient with a hearing aid. According to [place] statute 265 CMR:6.03(1), (a) General. Except as provided in 265 CMR 6.03(1)(b), a zinc chloride operator shall not sell a hearing aid unless the prospective user has presented to the zinc chloride operator a written statement signed by a licensed physician that states that the patient's hearing loss has been medically evaluated and the patient may be considered a candidate for a hearing aid. The medical evaluation must have taken place within the preceding six months. Please note: Due to the [place] Statute referenced above, we cannot accept a signature other than that of a licensed physician. [employer] and PA signatures cannot be accepted. I am in agreement with the above recommendation. There is no medical contraindication for hearing instrumentation. Physician Signature Date Physician Name (Printed)
== END 2024-04-07 15:36 | disposition home or self-care (01) ==
LOC: HO.SH 15:35
PROVIDERS: Visit Provider Internal Medicine
DX: Z01.118 Encounter for examination of ears and hearing with other abnormal findings (principal); Z46.1 Encounter for fitting and adjustment of hearing aid; H90.3 Sensorineural hearing loss, bilateral
CPT/HCPCS: 92557; 92591

== ENCOUNTER 2024-09-07 15:26 | Outpatient (REF) | payer MEDICAID, SELFPAY ==
--- OUTSIDE RECORDS SUMMARY | 2024-09-07 18:21 | XMS_ITS | Clinical Summary ---
Author Organization [facility] Address [address] [place] [address] Phone Care Team Providers Care [employer] Tool Maker Name Role Phone Devi Moran MD Primary Care Provider [phone] Allergies No known active allergies Medications carvedilol (COREG) 25 MG tablet Take 25 mg by mouth twice a day Active colchicine 0.6 MG tablet Take 0.6 mg by mouth if needed Active gabapentin (NEURONTIN) 800 MG tablet Take 800 mg by mouth 1 (one) time each day Active Insulin Lispro (HUMALOG KWIKPEN SC) Three times a day three times a day before meals Active telmisartan-hydr oCHLOROthiazide (MICARDIS HCT) 80-25 MG per tablet Take 1 tablet by mouth 1 (one) time each day Active Melatonin 5 MG tablet Take 5 mg by mouth at bed time Active atorvastatin (LIPITOR) 40 MG tablet Take 40 mg by mouth 1 (one) time each day 06/21/2020 Active fenofibrate (TRIGLIDE) 160 MG tablet Take 160 mg by mouth 1 (one) time each day 06/21/2020 Active omeprazole (PriLOSEC) [address] capsule Take 20 mg by mouth if needed Active Lantus SoloStar 100 UNIT/ML injection Inject 30 Units under the skin every night 05/23/2020 Active Trulicity 1.5 MG/0.5ML solution pen-injector 02/10/2021 Active amLODIPine (NORVASC) 5 MG tablet Take 5 mg by mouth 1 (one) time each day 04/24/2021 Active Active Problems Problem Noted Date Diagnosed Date Hypertension 10/11/2021 Chronic kidney disease, stage 3 (moderate) 10/11 Type 2 diabetes mellitus with complication Overview (10/12/2019): with diabetic foot infection and diabetic neuropathy Hyperlipidemia Bacteremia Overview (10/12/2019): MSSA Immunizations Name Administration Dates Next Due Influenza, Quadrivalent, Preservative Free 07/26 Pneumococcal Polysaccharide 12/07/2018 Family History Medical History Relation Comments Diabetes Mother Relation Status Comments Father Mother Alive Social History Tobacco Use Types Packs/Day Years Used Date Smoking Tobacco: Never Smokeless Tobacco: Never Tobacco Cessation:Counseling Given: Not Answered Alcohol Use Standard Drinks/Week Comments Yes 0 (1 standard drink = 0.6 oz pur e alcohol) social drinker Sex and Gender Information Value Date Recorded Sex Assigned at Not on file Legal Sex Male 2:26 PM EST Gender Identity Not on file Sexual Orientation Not on file Last Filed Vital Signs Vital Sign Reading Time Taken Comments Blood Pressure 120/76 04/30/2022 2:08 PM EST Pulse 83 04/30/2022 2:08 PM EST Temperature - - Respiratory Rate - - Oxygen Saturation 96% 04/30/2022 2:08 PM EST Inhaled Oxygen Concentration - - Weight 134 kg (294 lb 6.4 oz) 05/08/2021 3:18 PM EST Height - - Body Mass Index - - Plan of Treatment Health Maintenance Due Date Last Done Comments Hepatitis B Vaccine (1 of 3 - 19+ 3-dose series) 09/09 Pneumococcal Vaccine: Pediat rics (0 to 5 Years) and At-Risk Patients (6 to 64 Years) (2 of 2 - PCV) 12/08/2019 12/07/2018 Diabetes: Hemoglobin A1C 07/25/2020 Diabetes: Ophthalmology Exam 07/25/2020 Diabetes: Pedal Pulse Checked 07/25/2020 Diabetes: Sensory Foot Exam 07/25/2020 Diabetes: Visual Foot Exam 07/25/2020 Colorectal Cancer Screening: Annual FOBT 09/09/2020 Colorectal Cancer Screening: Colonoscopy 09/09/2020 Colorectal Cancer Screening: Sigmoidoscopy 09/09/2020 Influenza Vaccine (Season Ended) 2025 07/26/[address] [place] [address] [place] [address] [employer] [phone] [place] [address] [place] [address] [employer] [phone] [place] [address] Care Teams [employer] Maker Relationship Specialty Start Date End Date Devi Moran MD [address] PCP - General Internal Medicine 04/10/21
--- OUTSIDE RECORDS SUMMARY | 2024-09-07 18:21 | XMS_ITS | Clinical Summary ---
Author Organization 175 [facility] Address [address] [place] [address] Phone Care Team Providers Care Joint Finisher Name Role Phone Devi Moran MD Primary Care Provider [phone] Allergies No known active allergies Medications pen needle, diabetic 32 gauge x needle by Does not apply route. Active amLODIPine (NORVASC) 5 mg tablet Take 2 tablets (10 mg total) by mouth 1 (one) time each day. Active carvediloL (COREG) 25 mg tablet Take 25 mg by mouth 2 times daily (with meals). Active colchicine (MITIGARE) 0.6 mg capsule capsule Take by mouth. Active collagenase (SANTYL) 250 unit/gram ointment Active gabapentin (NEURONTIN) 300 mg capsule Take 1 capsule (300 mg total) by mouth 3 (three) times a day. Active insulin glargine (Lantus Solostar U-100 Insulin) 100 unit/mL (3 mL) injection pen Inject 15 Units under the skin at bedtime. 10/11/2021 Active insulin lispro (HumaLOG KwikPen Insulin) 100 unit/mL injection pen 8 Units 3 (three) times a day before meals. Active rosuvastatin (CRESTOR) 40 mg tablet Take 1 tablet (40 mg total) by mouth 1 (one) time each day. Active allopurinoL (ZYLOPRIM) 100 mg tablet Take 1 tablet (100 mg total) by mouth 1 (one) time each day. Active atorvastatin (LIPITOR) 80 mg tablet Take 1 tablet (80 mg total) by mouth 1 (one) time each day. Active aspirin 81 mg EC tablet Take 1 tablet (81 mg total) by mouth 1 (one) time each day. 05/27/2024 Active losartan (COZAAR) 25 mg tablet Take 1 tablet (25 mg total) by mouth 1 (one) time each day. 06/12/2024 Active Active Problems Problem Noted Date Diagnosed Date Other acute osteomyelitis of left foot Morbid obesity with BMI of 40.0-44.9, adult 03/03 Type 2 diabetes mellitus wit h hyperglycemia, with long-term current use of insulin 03/26/2024 DDD (degenerative disc disease), lumbar 05/22/20 22 Overview (03/26/2024): Last Assessment & Plan: Patient is 3 weeks s/p L4-5 OLIF and pedicle screw fixation for stenosis and degenerative disc disease. He states he has persistent low back pain, has not noticed the numbness in the legs, but states he has not specifically been paying attention for it. He states it still hard to get out of bed in the morning, similar to preop. He rates his back pain on average 7-8/10. He has been using Dilaudid, has been on gabapentin for a long time for his right leg. He denies any wound drainage, fevers, sweats chills, bowel bladder issues. He states he has been active and walking regularly. Mr. Bautista has a follow-up appointment in 6 weeks with lumbar spine x-rays with Dr. Madsen. Hopefully with time he notes continued improvement in his back pain as things heal. I asked him to call with any concerns or questions prior to his appointment. All postop questions answered. He did request a refill on his Zanaflex which he uses at bedtime, sent to his pharmacy. Hypertension 10/11/2021 Foot callus 07/01/2018 Foot pain 07/01/2018 Encounters Date Type Department Care Team Description 08/17/2024 9:45 AM EDT Office Visit Orthopedic Surgery - [place] [address] [place] [phone] Prabhjot Chavarria, ALTAF Poorly controlled type 2 diabetes mellitus with neuropathy (CMS/HCC) (Primary Dx); Metatarsalgia of left foot; Ulcer of heel and midfoot, left, with fat layer exposed (CMS/HCC) 08/17/2024 Telephone Orthopedic Surgery [facility] [address] [phone] Danielle Lea 08/11/2024 11:00 AM EDT Office Visit Orthopedic [facility] [address] [phone] Prabhjot Chavarria, DPM Poorly controlled type 2 diabetes mellitus with neuropathy (CMS/HCC) (Primary Dx); Cellulitis of left foot; Ulcer of heel and midfoot, left, with fat layer exposed (CMS/HCC) 07/01/2024 11:00 AM EST Office Visit Orthopedic [place] [address] [phone] Prabhjot Chavarria, DPM Poorly controlled type 2 diabetes mellitus with neuropathy (CMS/HCC) (Primary Dx); Dehiscence of operative wound, subsequent encounter; Ulcer of heel and midfoot, left, with fat layer exposed (CMS/HCC) 06/29/2024 1:00 PM EST Office Visit Infectious Disease - [place] [address] [phone] Olesya Nguyễn MD Diabetic foot infection ([facility]) (Primary Dx); Wound dehiscence; Other acute osteomyelitis of left foot (CMS/HCC) 06/24/2024 11:00 AM EST Office Visit Orthopedic Surgery [place] [address] [phone] Prabhjot Chavarria, DPM Poorly controlled type 2 diabetes mellitus with neuropathy (CMS/HCC) (Primary Dx); Dehiscence of operative wound, subsequent encounter; Midfoot ulceration, left, with necrosis of muscle (CMS/HCC) 06/17/2024 1:30 PM EST Office Visit Orthopedic Surgery [place] [address] [phone] Prabhjot Chavarria, DPM Poorly controlled type 2 diabetes mellitus with neuropathy (CMS/HCC) (Primary Dx); Dehiscence of operative wound, subsequent encounter; Ulcer of heel and midfoot, left, with fat layer exposed (CMS/HCC) 06/11/2024 12:45 PM EST Office Visit Orthopedic Surgery - [address] [phone] Prabhjot Chavarria DPM Post-operative state (Primary Dx); Ulcer of heel and midfoot, left, with fat layer exposed (CMS/HCC) from Last 3 Months Immunizations Name Administration Dates Next Due Influenza trivalent, 0.5mL, preservative free (Fluarix; FluLaval; Fluzone) ages 6mo and older (Afluria) 3 years and older 03/08/2020,07/26/2019 Pneumococcal polysaccharide 23 valent (Pneumovax 23) 2yo and older 12/07/2018 Td Tetanus diptheria (Tdvax) 7yo and older 07/03 Surgical History Surgery Date Site/Laterality Comments CHOLECYSTECTOMY PROCEDURE: RI LAPAROSCOPY SURG CHOLECYSTECTOMY OTHER SURGICAL HISTORY 05/01/2022 PROCEDURE: RI ARTHRODESIS POSTERIOR INTERBODY 1 NTRSPC LUMBAR; COMMENT: L4-5 OLIF, pedicle screw fixation, Dr. Madsen TOE AMPUTATION Left Left 3rd toe amp FOOT SURGERY x2 Medical History Medical History Date Comments Diabetes mellitus type 2, co ntrolled, with complications (CMS/HCC) DX:Diabetes mellitus type 2, controlled, with complications (HCC) Essential hypertension DX:Essent ial hypertension CKD (chronic kidney disease) stage 3, GFR 30-59 ml/min (CMS/HCC) Lumbar degenerative disc disease Gout Family History Medical History Relation Name Comments Diabetes Mother Relation Name Status Comments Mother Social History Tobacco Use Types Packs/Day Years Used Date Smoking Tobacco: Never Smokeless Tobacco: Never Tobacco Cessation:Counseling Given: Not Answered Alcohol Use Standard Drinks/Week Comments Never 0 (1 standard drink = 0.6 oz pur e alcohol) Sex and Gender Information Value Date Recorded Sex Assigned at Not on file Legal Sex Male 11:45 PM EST Gender Identity Not on file Sexual Orientation Not on file Obstetrics History Last Filed Vital Signs Vital Sign Reading Time Taken Comments Blood Pressure 122/78 06/29/2024 1:14 PM EST Pulse 94 06/29/2024 1:14 PM EST Temperature 36.5 ??C (97.7 ??F) 06/29/2024 1:14 PM ES T Respiratory Rate 18 06/07/2024 2:42 PM EST Oxygen Saturation 98% 06/29/2024 1:14 PM EST Inhaled Oxygen Concentration - - Weight 120 kg (265 lb) 08/17/2024 9:57 AM EDT Height 185.4 cm (6' 0.99 ) 08/17/2024 9:57 AM ED T Body Mass Index 34.97 08/17/2024 9:57 AM EDT Plan of Treatment Health Maintenance Due Date Last Done Comments Diabetes: Annual Retina Eye Exam 09/09/1981 Hepatitis B Vaccines (1 of 3 - 19+ 3-dose series) 09/09/1990 Pneumococcal Vaccine: 50+ Years (2 of 2 - PCV) 12/08/2019 12/07/2018 Pneumococcal Vaccine: Pediatrics (0 to 5 Years) and At-Risk Patients (6 to 64 Years) (2 of 2 - PCV) 12/08/2019 12/07/2018 COVID-19 Vaccine (3 - Pfizer risk series) 11/01/2020 10/04/2020, 09/11/2020 Zoster Vaccines (1 of 2) 09/09/2021 Cholesterol Screening (Lipid Panel) 05/12/2022 Colorectal Cancer Screening: Colonoscopy 05/12/2022 Depression Screening 05/12/2022 HIV Screening 05/12/2022 Hepatitis C Screening 05/12/2022 Social Influencers of Health Screening 05/12/2022 DTaP,Tdap,and Td Vaccines (2 - Td or Tdap) 07/03/2022 07/03/2012 Diabetes: Annual Urine Albumin-Creatinine Ratio (uACR) 12/24/2023 10/30/2021 Diabetes: Blood Sugar Control Test (HGBA1C) 12/24/2023 10/30/2021 Influenza Vaccine (#1) 2024 03/08/2020, 2019 Diabetes: Annual Foot Exam 06/01/2025 06/01/2024 Diabetes: Annual GFR (Glomerular Filtration Rate) 06/29/2025 06/29/2024, 06/07/2024, 06/02/2024, Additional history exists Hypertension/CHF/CAD Annual BMP Blood Test 06/29/2025 06/29/2024, 06/07/2024, 06/02/2024, Additional history exists HIB Vaccines Aged Out No longer eligi ble based on patient's age to complete this topic HPV Vaccines Aged Out No longer eligi ble based on patient's age to complete this topic Hepatitis A Vaccines Aged Out No long er eligible based on patient's age to complete this topic IPV Vaccines Aged Out No longer eligi ble based on patient's age to complete this topic MMR Vaccines Aged Out No longer eligi ble based on patient's age to complete this topic Meningococcal ACWY Vaccine Aged Out N o longer eligible based on patient's age to complete this topic Meningococcal B Vaccine Aged Out No l onger eligible based on patient's age to complete this topic RSV Immunization Patients Under 20 months Aged Out No longer eligible based on patient's age to complete this topic Varicella Vaccines Aged Out No longer eligible based on patient's age to complete this topic Procedures Procedure Name Priority Date/Time Associated Diagnosis Comments CBC WITH AUTO DIFFERENTIAL Routine 06/29/2024 1:44 PM EST Diabetic foot infection (CMS/HCC) Wound dehiscence CBC AND DIFFERENTIAL Routine 06/29/2024 1:44 PM EST Diabetic foot infection (CMS/HCC) Wound dehiscence BASIC METABOLIC PANEL Routine 06/29/2024 1:44 PM EST DEVANTE (acute kidney injury) (CMS/[facility]) XR FOOT 3+ VIEWS LEFT Routine 06/11/2024 1:01 PM EST Post-operative state HM URINE ALBUMIN CREATININE RATIO Routine 10/30/2021 HEMOGLOBIN A1C Routine 10/30/2021 from Last 3 Months or Most Recently Relevant to Health Maintenance Results * (ABNORMAL) CBC auto differential (06/29/2024 1:44 PM EST) WBC 8.3 4.8 - 10.8 K/[facility] LAB HEMETOLOGY METHOD 06/29/2024 6:30 PM EST [facility] RBC 4.50 4.50 - 5.50 M/[facility] LAB HEMETOLOGY METHOD 06/29/2024 6:30 PM [facility] Hemoglobin 12.2(L) 13.5 - 17.5 g/dL LAB HEMETOLOGY METHOD 06/29/2024 6:30 PM [facility] Hematocrit 39.7(L) 42.0 - 54.0 % LAB HEMETOLOGY METHOD 06/29/2024 6:30 PM [facility] MCV 88.0 79.0 - 98.0 FL LAB HEMETOLOGY METHOD 06/29/2024 6:30 PM [facility] MCH 27.1 27.0 - 32.0 pcg LAB HEMETOLOGY METHOD 06/29/2024 6:30 PM [facility] MCHC 30.7(L) 32.0 - 37.0 g/dL LAB HEMETOLOGY METHOD 06/29/2024 6:30 PM [facility] RDW 13.7 11.0 - 15.0 % LAB HEMETOLOGY METHOD 06/29/2024 6:30 PM [facility] Platelets 180 130 - 400 K/mcL LAB HEMETOLOGY METHOD 06/29/2024 6:30 PM [facility] MPV 11.6(H) 7.0 - 11.0 FL LAB HEMETOLOGY METHOD 06/29/2024 6:30 PM [facility] NRBC 0.0 <1.0 % LAB HEMETOLOGY METHOD 06/29/2024 6:30 PM [facility] NRBC Absolute 0.00 <0.10 K/mcL LAB HEMETOLOGY METHOD 06/29/2024 6:30 PM [facility] Neutrophils Relative 65.9 % LAB HEMETOLOGY METHOD 06/29/2024 6:30 PM [facility] Lymphocytes Relative 23.6 % LAB HEMETOLOGY METHOD 06/29/2024 6:30 PM [facility] Monocytes Relative 6.4 % LAB HEMETOLOGY METHOD 06/29/2024 6:30 PM EST [facility] Eosinophils Relative 3.1 % LAB HEMETOLOGY METHOD 06/29/2024 6:30 PM [facility] Basophils Relative 0.5 % LAB HEMETOLOGY METHOD 06/29/2024 6:30 PM [facility] Immature Granulocytes Relative 0.5 % LAB HEMETOLOGY METHOD 06/29/2024 6:30 PM EST [facility] Neutrophils Absolute 5.46 1.50 - 7.00 K/mcL LAB HEMETOLOGY METHOD 06/29/2024 6:30 PM [facility] Lymphocytes Absolute 1.95 1.00 - 5.00 K/mcL LAB HEMETOLOGY METHOD 06/29/2024 6:30 PM [facility] Monocytes Absolute 0.53 0.20 - 1.00 K/mcL LAB HEMETOLOGY METHOD 06/29/2024 6:30 PM EST [facility] Eosinophils Absolute 0.26 0.00 - 0.50 K/mcL LAB HEMETOLOGY METHOD 06/29/2024 6:30 PM EST [facility] Basophils Absolute 0.04 0.00 - 0.20 K/mcL LAB HEMETOLOGY METHOD 06/29/2024 6:30 PM [facility] Immature Granulocytes Absolute 0.04(H) 0.00 - 0.03 K/mcL LAB HEMETOLOGY METHOD 06/29/2024 6:30 PM [facility] Blood Venous blood specimen / Unknown Venipuncture / Unknown 06/29/2024 1:44 PM EST 06/29/2024 1:44 PM EST us Olesya Nguyễn MD LAB BLOOD ORDERABLES Final Resul t [facility] [address] [place] [address], * (ABNORMAL) Basic metabolic panel (06/29/2024 1:44 PM EST) Sodium 136 133 - 145 mmol/L LAB CHEMISTRY METHOD 06/29/2024 6:47 PM [facility] Potassium 5.0 3.5 - 5.5 mmol/L LAB CHEMISTRY METHOD 06/29/2024 6:47 PM [facility] Chloride 101 96 - 110 mmol/L LAB CHEMISTRY METHOD 06/29/2024 6:47 PM [facility] CO2 30 21 - 32 mmol/L LAB CHEMISTRY METHOD 06/29/2024 6:47 PM [facility] Anion Gap 5 3 - 11 LAB CHEMISTRY METHOD 06/29/2024 6:47 PM [facility] Glucose 111(H) 70 - 100 mg/dL LAB CHEMISTRY METHOD 06/29/2024 6:47 PM [facility] BUN 24 5 - 25 mg/dL LAB CHEMISTRY METHOD 06/29/2024 6:47 PM [facility] Creatinine 1.68(H) 0.70 - 1.30 mg/dL LAB CHEMISTRY METHOD 06/29/2024 6:47 PM [facility] eGFR 49(L) >=60 mL/min/1. 73m2 LAB CHEMISTRY METHOD 06/29/2024 6:47 PM [facility] Comment:Calculation based on the??Chronic Kidney Disease Epidemiology Collaboration (CKD-EPI) equation refit??without adjustment for race. BUN/Creatinine Ratio 14.3 LAB CHEMISTRY METHOD 06/29/2024 6:47 PM [facility] Calcium 10.0 8.5 - 10.5 mg/dL LAB CHEMISTRY METHOD 06/29/2024 6:47 PM [facility] Blood Venous blood specimen / Unknown Venipuncture / Unknown 06/29/2024 1:44 PM EST 06/29/2024 1:44 PM EST Wander Abdalla MD LAB BLOOD ORDERABLES Fi nal Result [facility] [address] [place] [address], * XR Foot 3+ Views Left (06/11/2024 1:01 PM EST) Anatomical Region Laterality Modality Lower Extremities, Foot Left Computed Radiography Narrative 06/15/2024 8:32 PM EST Left foot 3 views nonweightbearing: Previous metatarsal head resections of the third fourth fifth metatarsal with partial resection of the fifth digit and fourth digit base. ??No subcutaneous gas. ??Increased lateral column soft tissue inflammation. Prabhjot Chavarria DPM IMG XR PROCEDURES Final Res ult * HM Urine Albumin Creatinine Ratio (10/30/2021) Urine Albumin Creatinine Ratio Abstracted Historical Provider HEALTH MAINTENANCE Final Result * (ABNORMAL) Hemoglobin A1c (10/30/2021) Hemoglobin A1C 10.2(A) <=6.5 % Blood Venous blood specimen / Unknown Historical [facility] LAB BLOOD ORDERABLES Brenda l Result from Last 3 Months or Most Recently Relevant to Health Maintenance Insurance MEDICAID - [place] Advance Directives Documents on File Type Date Recorded Patient Adz Worker Expl anation Health Care Decision (hx) 10/13/2023 AD HENNESSY DIRECTIVE Health Care Decision (hx) 10/13/2023 AD HENNESSY DIRECTIVE Health Care Decision (hx) 10/13/2023 AD HENNESSY DIRECTIVE Health Care Decision (hx) 10/13/2023 AD HENNESSY DIRECTIVE Health Care Decision (hx) 10/13/2023 AD HENNESSY DIRECTIVE Health Care Decision (hx) 10/13/2023 AD HENNESSY DIRECTIVE Health Care Decision (hx) 10/13/2023 AD HENNESSY DIRECTIVE Health Care Decision (hx) 10/13/2023 AD HENNESSY DIRECTIVE Health Care Decision (hx) 10/13/2023 AD HENNESSY DIRECTIVE Health Care Decision (hx) 10/13/2023 AD HENNESSY DIRECTIVE Health Care Decision (hx) 10/13/2023 AD HENNESSY DIRECTIVE Health Care Decision (hx) 10/13/2023 AD HENNESSY DIRECTIVE Health Care Decision (hx) 10/13/2023 AD HENNESSY DIRECTIVE Health Care Decision (hx) 10/13/2023 AD HENNESSY DIRECTIVE Health Care Decision (hx) 10/13/2023 AD HENNESSY DIRECTIVE Health Care Decision (hx) 10/13/2023 AD HENNESSY DIRECTIVE * Full Code - Default (Latest Code Status on File) Date Activated Date Inactivated Comments 06/01/2024 5:36 AM 06/07/2024 7:37 PM This is orde r is used when code status has not been discussed with the patient, or code status is otherwise unknown/unconfirmed To update the patient's code status, place a code status order. Do not modify or discontinue any currently active code status orders. Care Teams Joint Finisher Relationship Specialty Start Date End Date Devi Moran MD [address] PCP - General Internal Medicine 09/11/21
--- OUTSIDE RECORDS SUMMARY | 2024-09-07 18:21 | XMS_ITS | Clinical Summary ---
Author Organization [facility] Address [address] [place] [address] Care Team Providers Care Dance Professor Name Role Phone Unavailable Primary Care Provider Unavailabl e Social History Tobacco Use Types Packs/Day Years Used Date Smoking Tobacco: Never Assessed Sex and Gender Information Value Date Recorded Sex Assigned at Not on file Legal Sex Male 6:05 PM EDT Gender Identity Not on file Sexual Orientation Not on file Plan of Treatment Health Maintenance Due Date Last Done Comments Hepatitis C Screening 1970 DTaP/Tdap/Td (1 - Tdap) 09/09/1989 Hep B (1 of 3 - 19+ 3-dose series) 09/09/1990 Pneumococcal 50+ years (1 of 1 - PCV) 09/09/2021 Zoster (Shingrix) (1 of 2) 09/09/2021 COVID-19 Vaccine ( - 2023-2 5 season) 2024 Influenza (#1) 2024 HPV Vaccine Aged Out No longer eligi ble based on patient's age to complete this topic Hep A Aged Out No longer eligi ble based on patient's age to complete this topic Hib Aged Out No longer eligi ble based on patient's age to complete this topic Meningococcal ACWY Aged Out No longer eligible based on patient's age to complete this topic
== END 2024-09-07 15:27 | disposition home or self-care (01) ==
LOC: HO.HAP 15:26
PROVIDERS: Visit Provider Internal Medicine
DX: Z46.1 Encounter for fitting and adjustment of hearing aid (principal); H90.3 Sensorineural hearing loss, bilateral
CPT/HCPCS: V5011; V5160; V5261

== ENCOUNTER 2024-09-21 09:11 | Outpatient (REF) | payer MEDICAID, SELFPAY ==
--- OUTSIDE RECORDS SUMMARY | 2024-09-21 09:50 | XMS_ITS | Clinical Summary ---
Author Organization [facility] Address [address] [place] [address] Phone Care Team Providers Care System Admin Name Role Phone Devi Moran MD Primary Care Provider Allergies No known active allergies Medications carvedilol [...] neuropathy Hyperlipidemia Bacteremia Overview (10/12/2019): MSSA Immunizations Immunization Administration Dates Next Due Influenza, Quadrivalent, Preservative [...] - 19+ 3-dose series) 09/09 Pneumococcal Vaccine: 50+ Years (2 of 2 - PCV) 020 12/07/2018 Diabetes: Hemoglobin A1C 07/25/2020 Diabetes: Ophthalmology Exam 07/25/2020 Diabetes: Pedal Pulse Checked 07/25/2020 Diabetes: Sensory Foot Exam 07/25/2020 Diabetes: Visual Foot Exam 07/25/2020 Colorectal Cancer Screening: Annual FOBT 09/09/2020 Colorectal Cancer Screening: Colonoscopy 09/09/2020 Colorectal Cancer Screening: Sigmoidoscopy 09/09/2020 Influenza Vaccine (Season Ended) 2025 07/26/19 20 Pneumococcal Vaccine: Peds ( 0 to 5 Years) and At-Risk Patients (6 to 49 Years) Discontinued 12/07/2018 Insurance [facility] [employer] [phone] [place] [address] [facility] [employer] [phone] [place] [address] Care Teams System Admin Relationship Specialty Start Date End Date Devi Moran MD [facility] [address] PCP - General Internal Medicine 04/10/21
--- OUTSIDE RECORDS SUMMARY | 2024-09-21 09:50 | XMS_ITS | Clinical Summary ---
Author Organization 175 [facility] Address 175 [place] [address] Phone Care Team Providers Care Healthcare Specialist Name Role Phone Devi Moran MD Primary Care Provider [phone] Allergies No known active allergies Medications pen [...] Date Other acute osteomyelitis of left foot ([facility] V24, [facility] V28) 06/01/2024 Morbid obesity with BMI of 4 0.0-44.9, adult ([facility] V24, [facility] V28) 03/26/2024 Type 2 diabetes mellitus wit h hyperglycemia, with long-term current use of insulin ([facility] V24, [facility] V28) 03/26/2024 DDD (degenerative disc disease), lumbar 05/22/20 [...] Encounters Date Type Department Care Team Description 09/16/2024 9:45 AM EDT Office Visit Orthopedic Surgery - [address] [phone] Prabhjot Chavarria, DPM Poorly controlled type 2 diabetes mellitus with neuropathy (CMS/HCC V24, CMS/HCC V28) (Primary Dx); Left foot pain; History of amputation of left foot through metatarsal bone (CMS/HCC V24, CMS/HCC V28); Ulcer of heel and midfoot, left, with fat layer exposed (CMS/HCC V24, CMS/HCC V28) 08/17/2024 9:45 AM EDT Office Visit Orthopedic Surgery [place] [phone] [phone] Prabhjot Chavarria A, DPM Poorly controlled type 2 diabetes mellitus with neuropathy (CMS/HCC V24, CMS/HCC V28) (Primary Dx); Metatarsalgia of left foot; Ulcer of heel and midfoot, left, with fat layer exposed (CMS/[facility] V24, CMS/HCC V28) 08/17/2024 Telephone Orthopedic Surgery [facility] [address] [phone] Danielle Lea 08/11/2024 11:00 AM EDT Office Visit Orthopedic Surgery [facility] [address] [phone] Prabhjot Chavarria, DPM Poorly controlled type 2 diabetes mellitus with neuropathy (CMS/HCC V24, CMS/HCC V28) (Primary Dx); Cellulitis of left foot; Ulcer of heel and midfoot, left, with fat layer exposed ([facility] V24, CMS/[facility] V28) 07/01/2024 11:00 AM EST Office Visit Orthopedic Surgery [facility] [address] [phone] Prabhjot Chavarria A, DPM Poorly controlled type 2 diabetes mellitus with neuropathy (CMS/HCC V24, CMS/HCC V28) (Primary Dx); Dehiscence of operative wound, subsequent encounter; Ulcer of heel and midfoot, left, with fat layer exposed (CMS/[facility] V24, CMS/HCC V28) 06/29/2024 1:00 PM EST Office Visit Infectious Disease - [place] 175 [facility] [address] [place] [phone] Olesya Nguyễn MD Diabetic foot infection ([facility] V24, [facility] V28) (Primary Dx); Wound dehiscence; Other acute osteomyelitis of left foot ([facility] V24, [facility] V28) 06/24/2024 11:00 AM EST Office Visit Orthopedic Surgery - [place] [address] [place] [phone] Prabhjot Chavarria DPM Poorly controlled type 2 diabetes mellitus with neuropathy ([facility] V24, [facility] V28) (Primary Dx); Dehiscence of operative wound, subsequent encounter; Midfoot ulceration, left, with necrosis of muscle ([facility] V24, [facility] V28) from Last 3 Months Immunizations Name Administration Dates Next Due Influenza trivalent, 0.5mL, preservative free (Fluarix; FluLaval; Fluzone) ages 6mo and older (Afluria) 3 years and older 03/08/2020,07/26/2019 Pneumococcal polysaccharide 23 valent (Pneumovax 23) 2yo and older 12/07/2018 Td Tetanus diptheria (Tdvax) 7yo and older 07/03 Surgical History Surgery Date Site/Laterality Comments CHOLECYSTECTOMY PROCEDURE: [place] LAPAROSCOPY SURG CHOLECYSTECTOMY OTHER SURGICAL HISTORY 05/01/2022 PROCEDURE: [place] ARTHRODESIS POSTERIOR INTERBODY 1 NTRSPC LUMBAR; COMMENT: L4-5 OLIF, pedicle screw fixation, Dr. Madsen TOE AMPUTATION Left Left 3rd toe amp FOOT SURGERY x2 Medical History Medical History Date Comments Diabetes mellitus type 2, co ntrolled, with complications ([facility] V24, [facility] V28) DX:Diabetes mellitus type 2, controlled, with complications ([facility]) Essential hypertension DX:Essent ial hypertension CKD (chronic kidney disease) stage 3, GFR 30-59 ml/min ([facility] V24, [facility] V28) Lumbar degenerative disc disease Gout Family History [...] - - Weight 120 kg (265 lb) 09/16/2024 9:46 AM EDT Height 185.4 cm (6' 0.99 ) 09/16/2024 9:46 AM ED T Body Mass Index 34.97 09/16/2024 9:46 AM EDT Plan of Treatment Upcoming Encounters Date Type Department Care Team (Late st Contact Info) Description 10/18/2024 8:45 AM EDT Office Visit Orthopedic Surgery - [place] [address] [phone] Prabhjot Chavarria, DPM [address] [phone] Health Maintenance Due Date Last Done Comments [...] Control Test (HGBA1C) 12/24/2023 10/30/2021 Influenza Vaccine (Season Ended) 2025 03/08/2020, 07/26/2019 Diabetes: Annual Foot Exam 06/01/2025 06/01/2024 Diabetes: [...] 06/29/2024 1:44 PM EST Diabetic foot infection (CMS/HCC V24, CMS/[facility] V28) Wound dehiscence CBC AND DIFFERENTIAL Routine 06/29/2024 1:44 PM EST Diabetic foot infection (CMS/HCC V24, CMS/HCC V28) Wound dehiscence BASIC METABOLIC PANEL Routine 06/29/2024 1:44 PM EST DEVANTE (acute kidney injury) (CMS/HCC V24) HM URINE ALBUMIN CREATININE RATIO Routine 10/30/2021 HEMOGLOBIN A1C Routine 10/30/2021 from Last 3 Months or Most Recently Relevant to Health Maintenance Results * (ABNORMAL) CBC auto differential (06/29/2024 1:44 PM EST) [facility] WBC 8.3 4.8 - 10.8 K/mcL LAB HEMETOLOGY METHOD 06/29/2024 6:30 PM [facility] RBC 4.50 4.50 - 5.50 M/mcL LAB HEMETOLOGY METHOD 06/29/2024 6:30 PM [facility] Hemoglobin 12.2(L) 13.5 - 17.5 g/dL LAB HEMETOLOGY METHOD 06/29/2024 6:30 PM [facility] Hematocrit 39.7(L) 42.0 - 54.0 % LAB HEMETOLOGY METHOD 06/29/2024 6:30 PM [facility] MCV 88.0 79.0 - 98.0 FL LAB HEMETOLOGY METHOD 06/29/2024 6:30 PM [facility] MCH 27.1 27.0 - 32.0 pcg LAB HEMETOLOGY METHOD 06/29/2024 6:30 PM [facility] MCHC 30.7(L) 32.0 - 37.0 g/dL LAB HEMETOLOGY METHOD 06/29/2024 6:30 PM [facility] RDW 13.7 11.0 - 15.0 % LAB HEMETOLOGY METHOD 06/29/2024 6:30 PM [facility] Platelets 180 130 - 400 K/mcL LAB HEMETOLOGY METHOD 06/29/2024 6:30 PM [facility] MPV 11.6(H) 7.0 - 11.0 FL LAB HEMETOLOGY METHOD 06/29/2024 6:30 PM [facility] NRBC 0.0 <1.0 % LAB HEMETOLOGY METHOD 06/29/2024 6:30 PM [facility] NRBC Absolute 0.00 <0.10 K/mcL LAB HEMETOLOGY METHOD 06/29/2024 6:30 PM [facility] Neutrophils Relative 65.9 % LAB HEMETOLOGY METHOD 06/29/2024 6:30 PM [facility] Lymphocytes Relative 23.6 % LAB HEMETOLOGY METHOD 06/29/2024 6:30 PM [facility] Monocytes Relative 6.4 % LAB HEMETOLOGY METHOD 06/29/2024 6:30 PM [facility] Eosinophils Relative 3.1 % LAB HEMETOLOGY METHOD 06/29/2024 6:30 PM [facility] Basophils Relative 0.5 % LAB HEMETOLOGY METHOD 06/29/2024 6:30 PM [facility] Immature Granulocytes Relative 0.5 % LAB HEMETOLOGY METHOD 06/29/2024 6:30 PM [facility] Neutrophils Absolute 5.46 1.50 - 7.00 K/mcL LAB HEMETOLOGY METHOD 06/29/2024 6:30 PM [facility] Lymphocytes Absolute 1.95 1.00 - 5.00 K/mcL LAB HEMETOLOGY METHOD 06/29/2024 6:30 PM [facility] Monocytes Absolute 0.53 0.20 - 1.00 K/mcL LAB HEMETOLOGY METHOD 06/29/2024 6:30 PM [facility] Eosinophils Absolute 0.26 0.00 - 0.50 K/mcL LAB HEMETOLOGY METHOD 06/29/2024 6:30 PM [facility] Basophils Absolute 0.04 0.00 - 0.20 K/mcL LAB HEMETOLOGY METHOD 06/29/2024 6:30 PM [facility] Immature Granulocytes Absolute 0.04(H) 0.00 - 0.03 K/mcL LAB HEMETOLOGY METHOD 06/29/2024 6:30 PM [facility] Blood Venous blood specimen / Unknown Venipuncture / Unknown 06/29/2024 1:44 PM EST 06/29/2024 1:44 PM EST us Olesya Nguyễn MD LAB BLOOD ORDERABLES Final Resul t [facility] [address] [place] [address], * (ABNORMAL) Basic metabolic panel (06/29/2024 1:44 PM EST) Sodium 136 133 - 145 mmol/L LAB CHEMISTRY METHOD 06/29/2024 6:47 PM [facility] Potassium 5.0 3.5 - 5.5 mmol/L LAB CHEMISTRY METHOD 06/29/2024 6:47 PM [facility] Chloride 101 96 - 110 mmol/L LAB CHEMISTRY METHOD 06/29/2024 6:47 PM [facility] CO2 30 21 - 32 mmol/L LAB CHEMISTRY METHOD 06/29/2024 6:47 PM [facility] Anion Gap 5 3 - 11 LAB CHEMISTRY METHOD 06/29/2024 6:47 PM [facility] Glucose 111(H) 70 - 100 mg/dL LAB CHEMISTRY METHOD 06/29/2024 6:47 PM [facility] BUN 24 5 - 25 mg/dL LAB CHEMISTRY METHOD 06/29/2024 6:47 PM [facility] Creatinine 1.68(H) 0.70 - 1.30 mg/dL LAB CHEMISTRY METHOD 06/29/2024 6:47 PM [facility] eGFR 49(L) >=60 mL/min/1. 73m2 LAB CHEMISTRY METHOD 06/29/2024 6:47 PM EST [facility] Comment:Calculation based on the??Chronic Kidney Disease Epidemiology Collaboration (CKD-EPI) equation refit??without adjustment for race. 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 Care Teams Healthcare Specialist Relationship Specialty Start Date End Date Devi Moran MD [address] [place] [address] PCP - General Internal Medicine 09/11/21
--- OUTSIDE RECORDS SUMMARY | 2024-09-21 09:50 | XMS_ITS | Clinical Summary ---
Author Organization [facility] Address [address] [place] [address] Care Team Providers Care Spar Machine Operator Name Role Phone Unavailable Primary Care Provider [...]
--- OUTSIDE RECORDS SUMMARY | 2024-09-21 09:50 | XMS_ITS | Encounter Summary ---
Author Organization [facility] Address [address] [place] [address] Care Team Providers Care Change House Attendant Name Role Phone Devi Moran MD Primary Care Provider [phone] Reason for Visit * Reason Comments Foot Pain Possible infection i n foot Encounter Details Date Type Department Care Team (Late st Contact Info) Description 09/16/2024 9:45 AM EDT Office Visit Orthopedic Surgery - [place] [address] 175 [facility] [address] [place] [phone] Prabhjot Chavarria, DPM [address] [facility] [address] [place] [phone] Poorly controlled type 2 diabetes mellitus with neuropathy ([facility] V24, [facility] V28) (Primary Dx); Left foot pain; History of amputation of left foot through metatarsal bone ([facility] V24, [facility] V28); Ulcer of heel and midfoot, left, with fat layer exposed ([facility] V24, [facility] V28) Social History Tobacco Use Types Packs/Day Years Used Date Smoking Tobacco: Never Smokeless Tobacco: Never Alcohol Use Standard Drinks/Week Comments Never 0 (1 standard drink = 0.6 oz pur e alcohol) Sex and Gender Information Value Date Recorded Sex Assigned at Not on file Legal Sex Male 11:45 PM EST Gender Identity Not on file Sexual Orientation Not on file documented as of this encounter Last Filed Vital Signs Vital Sign Reading Time Taken Comments Blood Pressure - - Pulse - - Temperature - - Respiratory Rate - - Oxygen Saturation - - Inhaled Oxygen Concentration - - Weight 120 kg (265 lb) 09/16/2024 9:46 AM EDT Height 185.4 cm (6' 0.99 ) 09/16/2024 9:46 AM ED T Body Mass Index 34.97 09/16/2024 9:46 AM EDT documented in this encounter Progress Notes * Prabhjot Chavarria DPM - 09/16/2024 9:45 AM EDT IDENTIFIER: @JOSE MARIA@ Lily is a 54 y.o. year old male who presents for consultation. CC: Left foot wound HPI: 54-year-old male returns office for left foot wound. Patient has not been using any offloading or corrective shoes. Patient is wearing regular sneakers and noticed bleeding coming from the bottom of his foot. Patient is concerned that he has had infections in the past and multiple amputations. Patient denies fever nausea vomiting shortness of breath. ROS: GENERAL: Pt denies nausea, fever, vomiting, chills, or shortness of breath. Pt in NAD. CARDIOLOGY: pt denies chest pain, palpitations LUNGS: pt denies shortness of breath MUSCULOSKELETAL: See HPI, otherwise no joint pain or swelling, back pain, or muscle pain. SKIN: see HPI, otherwise no lesions, rash or itching NEURO: No persistent headache, weakness or numbness The remainder of the review of systems is noncontributory PAST MEDICAL HISTORY: Patient Active Problem List Diagnosis DDD (degenerative disc disease), lumbar Foot callus Foot pain Hypertension Morbid obesity with BMI of 40.0-44.9, adult ([facility] V24, [facility] V28) Type 2 diabetes mellitus with hyperglycemia, with long-term current use of insulin ([facility] V24, [facility] V28) Other acute osteomyelitis of left foot ([facility] V24, [facility] V28) SOCIAL HISTORY: Social History Tobacco Use Smoking status: Never Smokeless tobacco: Never Substance Use Topics Alcohol use: Never ACTIVE MEDICATIONS: Outpatient Medications Marked as Taking for the 09/16/24 encounter (Office Visit) with Prabhjot Chavarria DPM Medication Sig Dispense Refill allopurinoL (ZYLOPRIM) 100 mg tablet Take 1 tablet (100 mg total) by mouth 1 (one) time each day. amLODIPine (NORVASC) 5 mg tablet Take 2 tablets (10 mg total) by mouth 1 (one) time each day. aspirin 81 mg EC tablet Take 1 tablet (81 mg total) by mouth 1 (one) time each day. atorvastatin (LIPITOR) 80 mg tablet Take 1 tablet (80 mg total) by mouth 1 (one) time each day. carvediloL (COREG) 25 mg tablet Take 25 mg by mouth 2 times daily (with meals). colchicine (MITIGARE) 0.6 mg capsule capsule Take by mouth. collagenase (SANTYL) 250 unit/gram ointment gabapentin (NEURONTIN) 300 mg capsule Take 1 capsule (300 mg total) by mouth 3 (three) times a day. insulin glargine (Lantus Solostar U-100 Insulin) 100 unit/mL (3 mL) injection pen Inject 15 Units under the skin at bedtime. insulin lispro (HumaLOG KwikPen Insulin) 100 unit/mL injection pen 8 Units 3 (three) times a day before meals. losartan (COZAAR) 25 mg tablet Take 1 tablet (25 mg total) by mouth 1 (one) time each day. pen needle, diabetic 32 gauge x 5/32 needle by Does not apply route. rosuvastatin (CRESTOR) 40 mg tablet Take 1 tablet (40 mg total) by mouth 1 (one) time each day. ALLERGIES: @ALL@ PHYSICAL EXAM: Height 1.854 m (72.99 ), weight 120 kg (265 lb). PODIATRIC EXAMINATION: GENERAL: Patient appears well nourished, with NAD. VASCULAR: Dorsalis pedis pulses are 2/4 bilaterally and Posterior tibial pulses are 2/4 bilaterally. Capillary filling time within normal limits the digits. No pallor on elevation or rubor on dependency. Positive hair growth. No varicosities. Denies rest pain or claudication pain. NEUROLOGICAL: Sharp/dull sensation diminished, protective sensation diminished on [place]. Multipleperipheral neuropathies bilaterally. ORTHOPEDIC: Good muscle strength 5/5 of all flexors and extensors. Dorsi flexion of ankle ,10 degrees, plantar flexion WNL. No muscle atrophy. Deformity to the right foot with increased supination and lateral column pressure with increased arch height. DERMATOLOGICAL:. Plantar foot wound to the submetatarsal 3 position heads 1 that is 5 mm in diameter with a regular hyperkeratotic rim with a fibrogranular base. No malodor or purulent drainage. No streaking cellulitis BIOMECHANICS: STJ ROM wnl, MTJ ROM wnl, 1st MPJ ROM wnl. IMPRESSION: 1. Poorly controlled type 2 diabetes mellitus with neuropathy ([facility] V24, [facility] V28) 2. Left foot pain 3. History of amputation of left foot through metatarsal bone ([facility] V24, [facility] V28) 4. Ulcer of heel and midfoot, left, with fat layer exposed ([facility] V24, [facility] V28) PLAN: Pt was seen and examined, history reviewed. Patient understands that his sugar levels directly affect his ability to heal and keep wounds closed. Patient wound to the plantar aspect of left foot has reopened. Patient was once again educated on importance of keeping offloading pads and being ready at all times. Patient was shown his x-rays and shown that he has a long third metatarsal and base of the 4th and 5th ray resections which is increasing pressure. Patient's wound required debridement as described below. Patient was fit with an offloading pad Betadine and dry sterile dressing. Patient instructed to keep a Band-Aid over the area and an offloading pad on his foot until he is completely healed. Patient return in 4 weeks for site check Open wound selective debridement of devitalized soft tissue, fibrin, epidermis, dermis, thru skin and subcutaneous tissue, first 20 sq cm or less, using sterile sharp dissection #15 scalpel blade of the left foot wound. Pt. deferred anesthesia. . Devitalized tissue was not sent to pathology. Prabhjot Chavarria DPM documented in this encounter Plan of Treatment Upcoming Encounters Date Type Department Care Team (Late st Contact Info) Description 10/18/2024 8:45 AM EDT Office Visit Orthopedic Surgery - [place] [address] [phone] Prabhjot Chavarria DPM 175 [facility] [address] [place] [address] Pending Results Name Type Priority Associated Diagnoses Date /Time XR Foot 3+ Views Left Imaging Routine Left foot pain 09/16/2024 10:22 AM EDT Scheduled Orders Name Type Priority Associated Diagnoses Orde r Schedule XR Foot 3+ Views Left Imaging Routine Left foot pain Expected: 09/16/2024, Expires: 09/16/2025 documented as of this encounter Visit Diagnoses Diagnosis Poorly controlled type 2 diabetes mellitus with neuropathy ([facility] V24, [facility] V28)- Primary Left foot pain Pain in soft tissues of limb History of amputation of left foot through metatarsal bone ([facility] V24, [facility] V28) Ulcer of heel and midfoot, left, with fat layer exposed ([facility] V24, [facility] V28) documented in this encounter Care Teams Change House Attendant Relationship Specialty Start Date End Date Devi Moran MD [address] [place] [address] PCP - General Internal Medicine 09/11/21 documented as of this encounter
[2024-09-21 09:51] LABS: MANUAL DIFF FLAG NO
[2024-09-21 10:18] LABS: Basophils Absolute Auto 0.1 X10*3/uL (0.0-0.2); Basophils Percent Auto 0.6 % (0-2); Eosinophils Absolute Auto 0.2 X10*3/uL (0.0-0.4); Eosinophils Percent Auto 2.3 % (0-4); Hematocrit 43.7 % (42.0-52.0); Hemoglobin 14.1 g/dl (14.0-18.0); Imm Gran Abs Auto 0.06 X10*3/uL (0.00-0.03); Imm Gran Pct Auto 0.6 % (0.0-0.4); Lymphocytes Percent Auto 10.6 % (20-40); Mean Corpuscular HGB Conc 32.3 g/dl (31.0-36.0); Mean Corpuscular Hemoglobin 27.3 pg (27.0-33.0); Mean Corpuscular Volume 84.7 fL (80.0-98.0); Mean Platelet Volume 11.2 fL (9.4-12.4); Monocytes Absolute Auto 0.6 X10*3/uL (0.1-1.2); Neutrophils Absolute Auto 7.7 x10*3/uL (2.0-8.3); Neutrophils Percent Auto 79.9 % (45-73); Platelet Count 197 X10*3/uL (160-400); Red Blood Count 5.16 X10*6/uL (4.60-5.80); Red Cell Distribution Width 13.2 % (11.0-16.0); White Blood Count 9.6 X10*3/uL (4.8-10.8)
[2024-09-21 10:30] LABS: Estimated Average Glucose 146 mg/dL; Hemoglobin A1C 182.4517 umol/L; Hemoglobin A1c % 6.7 % (<6.0); Total Hemoglobin (HGBA1C) 3700.4696 umol/L
[2024-09-21 10:41] LABS: Alanine Aminotransferase 20 U/L (0-40); Albumin Level 4.3 g/dL (3.5-5.0); Alkaline Phosphatase 126 U/L (39-117); Anion Gap 10 (12-20); Aspartate Amino Transferase 19 U/L (5-37); Blood Urea Nitrogen 31 mg/dL (9-16); Calcium 9.8 mg/dL (8.4-10.2); Carbon Dioxide 29 mmol/L (22-29); Chloride 106 mmol/L (96-108); Cholesterol 215 mg/dL (<200); Estimated Glomerular Filt Rate 50; Glucose Random 205 mg/dL (60-115); HDL Cholesterol 31 mg/dL (>40); LDL Cholesterol Calculated 148 mg/dL (<100); Potassium 5.1 mmol/L (3.3-5.1); Sodium 140 mmol/L (135-145); Total Protein 7.8 g/dL (6.5-8.0); Triglycerides 181 mg/dL (<150); Uric Acid 8.8 mg/dL (3.4-7.0)
[2024-09-21 13:38] LABS: Appearance Urine Clear; Color Urine Yellow; Glucose Urine UA Negative (Negative); Leukocyte Esterase Urine Negative (Negative); Nitrite Urine Negative (Negative); PH 5.5 (5.0-9.0); UMIC TRIGGER UA YES; Urine Blood Negative (Negative); Urine Ketones Negative (Negative); Urine Protein 100 (2+) mg/dL (Neg-Trace)
[2024-09-21 13:53] LABS: Bacteria Urine None Seen (None Seen); RBC Urine 0-2 /HPF (0-2); WBC Urine 0-5 /HPF (0-5)
[2024-09-21 14:25] LABS: Creatinine Urine 156.01 mg/dL
[2024-09-21 14:27] LABS: Microalbum/Creatinine Ratio Ur 328.8 ug/mg cr (<30)
[2024-09-21 15:00] LABS: Prostate Specific Antigen Scr 0.41 ng/mL (<0.05-4.0)
== END 2024-09-21 09:12 | disposition home or self-care (01) ==
LOC: HO.10HDL 09:11
PROVIDERS: Referring Provider Internal Medicine; Visit Provider Internal Medicine Hypertension Specialist
DX: Z12.5 Encounter for screening for malignant neoplasm of prostate (principal); E11.621 Type 2 diabetes mellitus with foot ulcer; E11.65 Type 2 diabetes mellitus with hyperglycemia; M10.9 Gout, unspecified; N18.30 Chronic kidney disease, stage 3 unspecified
CPT/HCPCS: 36415; 80053; 80061; 81001; 82043; 82570; 83036; 84153; 84550; 85025

== ENCOUNTER 2024-09-28 10:40 | Outpatient (AMB) | payer MEDICAID, SELFPAY ==
[2024-09-28 10:42] VITALS: BP 122/70; PULSE 62; O2SAT 98; BMI 36.7
--- NOTE | 2024-09-28 10:42 | HO.NEPHOV_ITS ---
Vital Signs 09/28/24 10:42 Height 6 ft 1 in Weight 278 lb 6 oz BMI 36.7 BP 122/70 Blood Pressure Location Rt brachial Position Sitting Pulse 62 Pulse Source Pulse Oximeter Pulse Oximetry (%) 98 Oxygen Delivery Method Room Air Intake Visit Reasons: CKD/ LVM Allergies No Known Allergies Allergy (Verified 09/28/24 10:43) Medication List - Last Reconciled 09/28/24 by Paolo Greene MD allopurinol 300 mg PO DAILY amlodipine 10 mg PO DAILY aspirin 81 mg PO DAILY carvedilol 25 mg PO BID colchicine 0.6 mg PO BID PRN indomethacin 50 mg PO TID PRN insulin aspart U-100 8 units subcut TID insulin glargine (Lantus Solostar U-100 Insulin) units subcut losartan 25 mg PO DAILY rosuvastatin 40 mg PO BEDTIME HPI Comments Details: Middle-aged man with a history of longstanding diabetes mellitus of more than 20 years. Overall blood sugar has been well controlled. He was found to have CKD with a serum creatinine 1.2 mg/dL with urine albumin creatinine ratio of 461 and hence this referral. He is history of hypertension. Blood pressure has been well controlled as well. He has had few episodes of mild hyperkalemia with a potassium 5.6. He has not on any MAURICIO inhibitors. I suspect hyperkalemia could have been a reason why he has not on MAURICIO inhibitors. Today he has no new complaints today. He has no headache nausea vomiting no abdominal pain or constipation no urinary symptoms no fever no rash. All sys tems were reviewed 10/07/23; Tolerating Losartan:Still has foot ulcer 03/22/24; Underwent foot surgery;Now on BACTRIM for the past 1 week for a total of 3 weeks 09/28/24: Overall doing well. Recently had another foot surgery. 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 Physical Exam Vital Signs: Last Vital Signs Pulse 62 09/28/24 10:42 BP 122/70 09/28/24 10:42 Pulse Ox 98 09/28/24 10:42 Oxygen Delivery Method Room Air 09/28/24 10:42 BMI result Body Mass Index 36.7 Const General: comfortable; No acute distress Orientation/consciousness: patient oriented x3 Eyes General: appearance normal, both eyes and all related structures Visual Shultz: normal visual shultz by confrontation Neck Neck: Yes supple and Yes no JVD Resp Effort & Inspection: normal respiratory effort and respiratory effort not decreased Cardio Palpation: no palpable S3 and no palpable S4 Heart sounds: no rubs GI Inspection: Yes normal to inspection Palpation (GI): Soft to palpation Percussion: Yes normal to percussion Auscultation: normal bowel sounds General: Yes no CVA tenderness Back/Spine/Pelvis Back: no CVA tenderness Skin General skin exam: no petechiae and no purpura Neuro General: patient oriented x3 and no focal motor deficits Extrem General: No clubbing and No edema Results Reviewed Nephrology Results: Hgb 14.1 g/dl (14.0-18.0) 09/21/24 WBC 9.6 X10*3/uL (4.8-10.8) 09/21/24 Plt Count 197 X10*3/uL (160-400) 09/21/24 Sodium 140 mmol/L (135-145) 09/21/24 Potassium 5.1 mmol/L (3.3-5.1) 09/21/24 Chloride 106 mmol/L (96-108) 09/21/24 Carbon Dioxide 29 mmol/L (22-29) 09/21/24 BUN 31 mg/dL (9-16) H 09/21/24 Creatinine 1.48 mg/dL (0.5-1.4) H 09/21/24 Calcium 9.8 mg/dL (8.4-10.2) 09/21/24 PTH Intact 80.6 pg/mL (8.7-77.1) H 10/06/23 Urine Protein 100 (2+) mg/dL (Neg-Trace) H 04/22/25 Urine Creatinine 156.01 mg/dL 09/21/24 Assessment & Plan Assessment & Plan (1) CKD (chronic kidney disease) stage 3, GFR 30-59 ml/min: Code(s): N18.30 - Chronic kidney disease, stage 3 unspecified Category: Medical Plan: . Middle-aged man with stage 3 chronic kidney disease due to underlying diabetic kidney disease. He has non nephrotic range proteinuria again most likely due to underlying diabetic kidney disease. Goal is to slow the progression of renal disease I have discussed importance of tight control of blood pressure and blood sugar to slow the progression. Hemoglobin A1c should be maintained less than 7% and blood pressure less than 130/80 mm Hg. Creatinine has improved : down from 3.0 to 1.48! Keep on losartan 25 mg once a day and monitor serum creatinine potassium. He would benefit from SGLT2 inhibitors. Continue to avoid nephrotoxic agents including NSAIDs and IV contrast dyes. Blood pressure is acceptable at this time. He should stay on low-sodium diet Would continue to screen for anemia and secondary hyperparathyroidism. History of gout. He is currently on allopurinol. I have discussed low purine diet as well. Uric acid was 8.9 Continue to avoid nephrotoxins including Bactrim . Orders: Orders Basic Metabolic Panel 6 Months N18.30 - Chronic kidney disease, stage 3 unspecified Coding Level of Care Code Est Pt Level 4 (77373) Diagnoses CKD (chronic kidney disease) stage 3, GFR 30-59 ml/min N18.30
--- OUTSIDE RECORDS SUMMARY | 2024-09-28 12:17 | XMS_ITS | Clinical Summary ---
Author Organization [facility] Address [address] [place] [address] Care Team Providers Care Admissions Dean Name Role Phone Unavailable Primary Care Provider [...]
--- OUTSIDE RECORDS SUMMARY | 2024-09-28 12:17 | XMS_ITS | Clinical Summary ---
Author Organization [facility] Address [address] [place] [address] Phone Care Team Providers Care Manager Research Development Name Role Phone Devi Moran MD Primary Care Provider [phone] Allergies No known active allergies Medications pen [...] Date Other acute osteomyelitis of left foot ([facility] V24, [facility] V28) 06/01/2024 Morbid obesity with BMI of 4 0.0-44.9, adult ([facility] V24, [facility] V28) 03/26/2024 Type 2 diabetes mellitus wit h hyperglycemia, with long-term current use of insulin ([facility] V24, [facility] V28) 03/26/2024 DDD (degenerative disc disease), lumbar [...] AM EDT Office Visit Orthopedic Surgery - [address] [address] Prabhjot Chavarria DPM Poorly controlled type 2 diabetes mellitus with neuropathy ([facility] V24, CMS/HCC V28) (Primary Dx); Left foot pain; History of amputation of left foot through metatarsal bone ([facility] V24, [facility]/H[facility] V28); Ulcer of heel and midfoot, left, with fat layer exposed ([facility] V24, [facility] V28) 08/17/2024 9:45 AM EDT Office Visit Orthopedic Surgery [place] [address] [phone] Prabhjot Chavarria DPJacquelin Poorly controlled type 2 diabetes mellitus with neuropathy ([facility] V24, [facility] V28) (Primary Dx); Metatarsalgia of left foot; Ulcer of heel and midfoot, left, with fat layer exposed ([facility] V24, [facility] V28) 08/17/2024 Telephone Orthopedic Surgery [place] [address] [phone] Danielle Lea 08/11/2024 11:00 AM EDT Office Visit Orthopedic [facility] [address] [phone] Prabhjot Chavarria DPM Poorly controlled type 2 diabetes mellitus with neuropathy ([facility] V24, [facility] V28) (Primary Dx); Cellulitis of left foot; Ulcer of heel and midfoot, left, with fat layer exposed ([facility] V24, [facility] V28) 07/01/2024 11:00 AM EST Office Visit Orthopedic [facility] [address] [phone] Prabhjot Chavarria DPM Poorly controlled type 2 diabetes mellitus with neuropathy ([facility] V24, [facility] V28) (Primary Dx); Dehiscence of operative wound, subsequent encounter; Ulcer of heel and midfoot, left, with fat layer exposed ([facility] V24, [facility] V28) from Last 3 Months Immunizations Name Administration Dates Next Due Influenza trivalent, 0.5mL, preservative free (Fluarix; FluLaval; Fluzone) ages 6mo and older (Afluria) 3 years and older 03/08/2020,07/26/2019 Pneumococcal polysaccharide 23 valent (Pneumovax 23) 2yo and older 12/07/2018 Td Tetanus diptheria (Tdvax) 7yo and older 07/03 Surgical History Surgery Date Site/Laterality Comments CHOLECYSTECTOMY PROCEDURE: [place] LAPAROSCOPY SURG CHOLECYSTECTOMY OTHER SURGICAL HISTORY 05/01/2022 PROCEDURE: [place] ARTHRODESIS POSTERIOR INTERBODY 1 NTRSPC LUMBAR; COMMENT: L4-5 OLIF, pedicle screw fixation, Dr. Madsen TOE AMPUTATION Left Left 3rd toe amp FOOT SURGERY x2 Medical History Medical History Date Comments Diabetes mellitus type 2, co ntrolled, with complications ([facility] V24, [facility] V28) DX:Diabetes mellitus type 2, controlled, with complications ([facility]) Essential hypertension DX:Essent ial hypertension CKD (chronic kidney disease) stage 3, GFR 30-59 ml/min ([facility]/HCC V24, [facility] V28) Lumbar degenerative disc disease Gout Family [...] AM EDT Office Visit Orthopedic Surgery - [place] [address] [facility] [address] [place] [address] Prabhjot Chavarria, DPM [address] [facility] [address] [place] [address] Health Maintenance Due Date Last Done Comments [...] Procedure Name Priority Date/Time Associated Diagnosis Comments BASIC METABOLIC PANEL Routine 06/29/2024 1:44 PM EST DEVANTE (acute kidney injury) ([facility] V24) HM URINE ALBUMIN CREATININE RATIO Routine 10/30/2021 HEMOGLOBIN A1C Routine 10/30/2021 from Last 3 Months or Most Recently Relevant to Health Maintenance Results * (ABNORMAL) Basic metabolic panel (06/29/2024 1:44 PM EST) Sodium 136 133 - 145 mmol/L LAB CHEMISTRY METHOD 06/29/2024 6:47 PM [facility] Potassium 5.0 3.5 - 5.5 mmol/L LAB CHEMISTRY METHOD 06/29/2024 6:47 PM [facility] Chloride 101 96 - 110 mmol/L LAB CHEMISTRY METHOD 06/29/2024 6:47 PM [facility] CO2 30 21 - 32 mmol/L LAB CHEMISTRY METHOD 06/29/2024 6:47 PM [facility] Anion Gap 5 3 - 11 LAB CHEMISTRY METHOD 06/29/2024 6:47 PM [facility] Glucose 111(H) 70 - 100 mg/dL LAB CHEMISTRY METHOD 06/29/2024 6:47 PM EST [facility] BUN 24 5 - 25 mg/dL LAB CHEMISTRY METHOD 06/29/2024 6:47 PM [facility] Creatinine 1.68(H) 0.70 - 1.30 mg/dL LAB CHEMISTRY METHOD 06/29/2024 6:47 PM [facility] eGFR 49(L) >=60 mL/min/1. 73m2 LAB CHEMISTRY METHOD 06/29/2024 6:47 PM [facility] Comment:Calculation based on the??Chronic Kidney Disease Epidemiology Collaboration (CKD-EPI) equation refit??without adjustment for race. BUN/Creatinine Ratio 14.3 LAB CHEMISTRY METHOD 06/29/2024 6:47 PM [facility] Calcium 10.0 8.5 - 10.5 mg/dL LAB CHEMISTRY METHOD 06/29/2024 6:47 PM [facility] Blood Venous blood specimen / Unknown Venipuncture / Unknown 06/29/2024 1:44 PM EST 06/29/2024 1:44 PM EST Wander Abdalla MD LAB BLOOD ORDERABLES Fi nal Result [facility] [address] [place] [address], * HM Urine Albumin Creatinine Ratio (10/30/2021) Urine Albumin Creatinine Ratio Abstracted Historical Provider HEALTH MAINTENANCE Final Result * (ABNORMAL) Hemoglobin A1c (10/30/2021) Hemoglobin A1C 10.2(A) <=6.5 % Blood Venous blood specimen / Unknown Farrah Tirado MD LAB BLOOD ORDERABLES Brenda l Result from Last 3 Months or Most Recently Relevant to Health Maintenance Insurance [place]ICA[place] - [place] Advance Directives Documents on File Type Date Recorded Patient Turn Machine Operator Expl anation Health Care Decision (hx) 10/13/2023 [...] currently active code status orders. Care Teams Manager Research Development Relationship Specialty Start Date End Date Devi Moran MD [address] PCP - General Internal Medicine 09/11/21
--- OUTSIDE RECORDS SUMMARY | 2024-09-28 12:17 | XMS_ITS | Clinical Summary ---
Author Organization [facility] Address [address] [place] [address] Phone Care Team Providers Care Aesthetician Name Role Phone Devi Moran MD Primary [...] (6 to 49 Years) Discontinued 12/07/2018 Insurance [facility] [employer] [phone] [place] [address] [facility] [employer] [phone] [place] [address] Care Teams Aesthetician Relationship Specialty Start Date End Date Devi Moran MD [facility] [address] PCP - General Internal Medicine 04/10/21
== END 2024-09-28 10:59 | disposition home or self-care (01) ==
LOC: HO.HKA 10:40
PROVIDERS: PCP Internal Medicine; Visit Provider Internal Medicine Hypertension Specialist
DX: N18.30 Chronic kidney disease, stage 3 unspecified (principal)
CPT/HCPCS: 99214

== ENCOUNTER → 2024-09-28 10:40 | Outpatient (BNVA) | payer MEDICAID, SELFPAY | PROVIDERS: PCP Internal Medicine; Visit Provider Internal Medicine Hypertension Specialist | DX: E11.22 Type 2 diabetes mellitus with diabetic chronic kidney disease (principal); I12.9 Hypertensive chronic kidney disease with stage 1 through stage 4 chronic kidney disease, or unspecified chronic kidney disease; N18.30 Chronic kidney disease, stage 3 unspecified | CPT/HCPCS: 99212 ==

== ENCOUNTER 2024-12-08 13:18 | Outpatient (REF) | payer MEDICAID, SELFPAY ==
--- OUTSIDE RECORDS SUMMARY | 2024-12-08 14:08 | XMS_ITS | Clinical Summary ---
Author Organization [facility] Address [address] [place] [address] Phone Care Team Providers Care Retail Greeter Name Role Phone Devi Moran MD Primary [...] Colorectal Cancer Screening: Sigmoidoscopy 09/09/2020 Influenza Vaccine (#1) 2025 07/26/2019 Pneumococcal Vaccine: Peds ( 0 to 5 Years) and At-Risk Patients (6 to 49 Years) Discontinued 12/07/2018 Insurance [facility] [employer] [phone] [place] [address] [facility] [employer] [phone] [place] [address] Care Teams Retail Greeter Relationship Specialty Start Date End Date Devi Moran MD [facility] [address] PCP - General Internal Medicine 04/10/21
--- OUTSIDE RECORDS SUMMARY | 2024-12-08 14:08 | XMS_ITS | Clinical Summary ---
Author Organization [facility] Address [address] [place] [address] Phone Care Team Providers Care Card Room Manager Name Role Phone Devi Moran MD Primary Care Provider [phone] Allergies No known active allergies Medications pen [...] Active Problems Problem Noted Date Diagnosed Date Ulcer of heel and midfoot, l eft, with fat layer exposed ([facility] V24, [facility] V28) 10/18/2024 Metatarsalgia of left foot 10/18/2024 Other acute osteomyelitis of left foot ([facility] V24, [facility] V28) 06/01/2024 Morbid obesity with BMI of 4 0.0-44.9, adult ([facility] V24, [facility] V28) 03/26/2024 Type 2 diabetes mellitus wit h hyperglycemia, with long-term current use of insulin ([facility] V24, [facility] V28) 03/26/2024 DDD (degenerative disc disease), lumbar [...] has been active and walking regularly. Mr. Myers has a follow-up appointment in 6 weeks [...] Encounters Date Type Department Care Team Description 12/07/2024 2:00 PM EDT Office Visit Orthopedic Surgery [place] [address] [phone] Prabhjot Chavarria DPM History of amputation of left foot through metatarsal bone (CMS/HCC V24, CMS/HCC V28) (Primary Dx); Poorly controlled type 2 diabetes mellitus with neuropathy ([facility] V24, [facility] V28); Ulcer of heel and midfoot, left, with fat layer exposed ([facility] V24, [facility] V28) 11/17/2024 Telephone Orthopedic Surgery [place] [address] [phone] Prabhjot Chavarria DPM surgery left foot 10/18/2024 8:45 AM EDT Office Visit Orthopedic Surgery [place] [address] [phone] Prabhjot Chavarria DPM History of amputation of left foot through metatarsal bone ([facility] V24, [facility] V28) (Primary Dx); Cellulitis of left lower extremity; Poorly controlled type 2 diabetes mellitus with neuropathy ([facility] V24, [facility] V28); Ulcer of heel and midfoot, left, with fat layer exposed ([facility] V24, [facility] V28); Metatarsalgia of left foot 09/16/2024 9:45 AM EDT Office Visit Orthopedic Surgery [facility] [address] [phone] Prabhjot Chavarria DPM Poorly controlled type 2 diabetes mellitus with neuropathy ([facility] V24, [facility] V28) (Primary Dx); Left foot pain; History of amputation of left foot through metatarsal bone ([facility] V24, [facility] V28); Ulcer of heel and midfoot, left, with fat layer exposed ([facility] V24, [facility] V28) from Last 3 Months Immunizations Name Administration Dates Next Due Influenza trivalent, 0.5mL, preservative free (Fluarix; FluLaval; Fluzone) ages 6mo and older (Afluria) 3 years and older 03/08/2020,07/26/2019 Pneumococcal polysaccharide 23 valent (Pneumovax 23) 2yo and older 12/07/2018 Td Tetanus diptheria (Tdvax) 7yo and older 07/03 Surgical History Surgery Date Site/Laterality Comments CHOLECYSTECTOMY PROCEDURE: [place] LAPAROSCOPY SURG CHOLECYSTECTOMY OTHER SURGICAL HISTORY 05/01/2022 PROCEDURE: [place] ARTHRODESIS POSTERIOR INTERBODY 1 NTRSPC LUMBAR; COMMENT: L4-5 OLIF, pedicle screw fixation, Dr. Madsen TOE AMPUTATION Left Left 3rd toe amp FOOT SURGERY x2 Medical History Medical History Date Comments Diabetes mellitus type 2, co ntrolled, with complications ([facility]/HCC V24, [facility] V28) DX:Diabetes mellitus type 2, controlled, with complications ([facility]) Essential hypertension DX:Essent ial hypertension CKD (chronic kidney disease) stage 3, GFR 30-59 ml/min (CMS/HCC V24, CMS/HCC V28) Lumbar degenerative disc disease Gout Family [...] 94 06/29/2024 1:14 PM EST Temperature 36.5 C (97.7 F) 06/29/2024 1:14 PM EST Respiratory Rate 18 06/07/2024 2:42 PM EST Oxygen Saturation 98% 06/29/2024 1:14 PM EST Inhaled Oxygen Concentration - - Weight 120 kg (265 lb) 10/18/2024 8:51 AM EDT Height 185.4 cm (6' 0.99 ) 10/18/2024 8:51 AM ED T Body Mass Index 34.97 10/18/2024 8:51 AM EDT Plan of Treatment Upcoming Encounters Date Type Department Care Team (Latest Contact Info) Description 01/14/2025 11:00 AM EDT Hospital Encounter [facility] Main OR [address] [place] [phone] Prabhjot Chavarria DPM [address] [address] 01/14/2025 11:00 AM EDT - 01/14/2025 12:15 PM EDT Surgery [facility] Main OR [address] [place] [phone] Prabhjot Chavarria DPM [address] [address] EXCISION LEFT METATARSAL HEAD [30778 (CPT )] 01/27/2025 9:15 AM EDT Office Visit Orthopedic Surgery - [place] [address] [phone] Prabhjot Chavarria DPM [address] [address] Scheduled Procedures Name Priority Associated Diagnoses Date/Ti me EXCISION METATARSAL HEAD Ulcer of heel and midfoot, left, with fat layer exposed (CMS/HCC V24, CMS/HCC V28) Metatarsalgia of left foot 01/14/2025 11:00 AM EDT Health Maintenance Due Date Last Done Comments Diabetes: Annual Retina Eye Exam 09/09/1981 Hepatitis B Vaccines (1 of 3 - 19+ 3-dose series) 09/09/1990 Zoster Vaccines (1 of 2) 09/09/1990 Pneumococcal Vaccine: 50+ Years (2 of 2 - PCV) 12/08/2019 12/07/2018 COVID-19 Vaccine (3 - Pfizer risk series) 11/01/2020 10/04/2020, 09/11/2020 Cholesterol Screening (Lipid Panel) 05/12/2022 Colorectal Cancer Screening: Colonoscopy 05/12/2022 Depression Screening 05/12/2022 HIV Screening 05/12/2022 Hepatitis C Screening 05/12/2022 Social Influencers of Health Screening 05/12/2022 DTaP,Tdap,and Td Vaccines (2 - Td or Tdap) 07/03/2022 07/03/2012 Diabetes: Annual Urine Albumin-Creatinine Ratio (uACR) 12/24/2023 10/30/2021 Diabetes: Blood Sugar Control Test (HGBA1C) 12/24/2023 10/30/2021 Influenza Vaccine (#1) 2025 03/08/2020, 2019 Diabetes: Annual Foot Exam 06/01/2025 [...] Procedure Name Priority Date/Time Associated Diagnosis Comments XR FOOT 3+ VIEWS LEFT Routine 10/18/2024 8:48 AM EDT Follow-up exam XR FOOT 3+ VIEWS LEFT Routine 09/16/2024 10:22 AM EDT Left foot pain BASIC METABOLIC PANEL Routine 06/29/2024 1:44 PM EST DEVANTE (acute kidney injury) (CMS/HCC V24) HM URINE ALBUMIN CREATININE RATIO Routine 10/30/2021 HEMOGLOBIN A1C Routine 10/30/2021 from Last 3 Months or Most Recently Relevant to Health Maintenance Results * XR Foot 3+ Views Left (10/18/2024 8:48 AM EDT) Only the most recent of2 resultswithin the time period is included. Anatomical Region Laterality Modality Lower Extremities, Foot Left Computed Radiography Narrative 10/18/2024 10:06 PM EDT Left foot 3 views weightbearing: Marker placed underneath the foot at the ulcer site showing the third metatarsal as the area of pressure. Some osteophytic growth noted to the plantar area. No gas or osteolytic lesion Prabhjot Chavarria DPM IMG XR PROCEDURES Final Res ult * (ABNORMAL) Basic metabolic panel (06/29/2024 1:44 [...] LAB CHEMISTRY METHOD 06/29/2024 6:47 PM EST [facility] Comment:Calculation based on the Chronic Kidney Disease Epidemiology Collaboration (CKD-EPI) equation refit without adjustment for race. BUN/Creatinine Ratio 14.3 LAB CHEMISTRY METHOD 06/29/2024 6:47 PM EST [facility] Calcium 10.0 8.5 - 10.5 mg/dL LAB CHEMISTRY METHOD 06/29/2024 6:47 PM EST [facility] Blood Venous blood specimen / Unknown Venipuncture / Unknown 06/29/2024 1:44 PM EST 06/29/2024 1:44 PM EST Wander Abdalla MD LAB BLOOD ORDERABLES Fi nal Result [facility] [address] [place] [address], * HM Urine Albumin Creatinine Ratio (10/30/2021) [...] Documents on File Type Date Recorded Patient Appeals Examiner Expl anation Health Care Decision (hx) 10/13/2023 [...] currently active code status orders. Care Teams Card Room Manager Relationship Specialty Start Date End Date Devi Moran MD [address] [place] [address] PCP - General Internal Medicine 09/11/21
--- OUTSIDE RECORDS SUMMARY | 2024-12-08 14:08 | XMS_ITS | Clinical Summary ---
Author Organization [facility] Address [address] [place] [address] Care Team Providers Care Bullet Swaging Machine Adjuster Name Role Phone Unavailable Primary Care Provider [...] - 2023-2 5 season) 2024 Influenza (#1) 2025 HPV Vaccine Aged Out No longer eligi [...]
== END 2024-12-08 13:19 | disposition home or self-care (01) ==
LOC: HO.HOSX 13:18
PROVIDERS: Visit Provider Physician Assistant
DX: Z13.89 Encounter for screening for other disorder (principal)

== ENCOUNTER 2024-12-27 10:29 | Outpatient (REF) | payer MEDICAID, SELFPAY ==
--- OUTSIDE RECORDS SUMMARY | 2024-12-27 11:38 | XMS_ITS | Clinical Summary ---
Author Organization [facility] Address [address] [place] [address] Phone Care Team Providers Care Relationship Executive Name Role Phone Devi Moran MD Primary Care Provider [phone] Allergies No known active allergies Medications carvedilol [...] (6 to 49 Years) Discontinued 12/07/2018 Insurance [facility] [employer] [phone] [place] [address] [facility] [employer] [phone] [place] [address] Care Teams Relationship Executive Relationship Specialty Start Date End Date Devi Moran MD [facility] [address] PCP - General Internal Medicine 04/10/21
--- OUTSIDE RECORDS SUMMARY | 2024-12-27 11:38 | XMS_ITS | Clinical Summary ---
Author Organization 175 [facility] Address [address] [place] [address] Phone Care Team Providers Care Raised Printer Name Role Phone Devi Moran MD Primary Care Provider [phone] Allergies No known active allergies Medications pen [...] midfoot, l eft, with fat layer exposed ([facility] V24, [facility] V28) 10/18/2024 Metatarsalgia of left foot 10/18/2024 Other acute osteomyelitis of left foot ([facility] V24, [facility] V28) 06/01/2024 Morbid obesity with BMI of 4 0.0-44.9, adult ([facility] V24, [facility] V28) 03/26/2024 Type 2 diabetes mellitus wit h hyperglycemia, with long-term current use of insulin ([facility] V24, [facility] V28) 03/26/2024 DDD (degenerative disc disease), lumbar [...] 2:00 PM EDT Office Visit Orthopedic Surgery [facility] [address] [phone] Prabhjot Chaavrria DPM History of amputation of left foot through metatarsal bone ([facility] V24, [facility] V28) (Primary Dx); Poorly controlled type 2 diabetes mellitus with neuropathy ([facility] V24, [facility] V28); Ulcer of heel and midfoot, left, with fat layer exposed ([facility] V24, [facility] V28) 11/17/2024 Telephone Orthopedic Surgery [facility] [address] [phone] Prabhjot Chavarria DPM surgery left foot 10/18/2024 8:45 AM EDT Office Visit Orthopedic Surgery [facility] [address] [phone] Prabhjot Chavarria DPM History of amputation of left foot through metatarsal bone ([facility] V24, [facility] V28) (Primary Dx); Cellulitis of left lower extremity; Poorly controlled type 2 diabetes mellitus with neuropathy ([facility] V24, [facility] V28); Ulcer of heel and midfoot, left, with fat layer exposed ([facility] V24, [facility] V28); Metatarsalgia of left foot from Last 3 Months Immunizations Name Administration Dates Next Due Influenza trivalent, 0.5mL, preservative free (Fluarix; FluLaval; Fluzone) ages 6mo and older (Afluria) 3 years and older 03/08/2020,07/26/2019 Pneumococcal polysaccharide 23 valent (Pneumovax 23) 2yo and older 12/07/2018 Td Tetanus diptheria (Tdvax) 7yo and older 07/03 Surgical History Surgery Date Site/Laterality Comments CHOLECYSTECTOMY PROCEDURE: [place] LAPAROSCOPY SURG CHOLECYSTECTOMY OTHER SURGICAL HISTORY 05/01/2022 PROCEDURE: [place] ARTHRODESIS POSTERIOR INTERBODY 1 NTRSPC LUMBAR; COMMENT: L4-5 OLIF, pedicle screw fixation, Dr. Madsen TOE AMPUTATION Left Left 3rd toe amp FOOT SURGERY x2 Medical History Medical History Date Comments Diabetes mellitus type 2, co ntrolled, with complications ([facility] V24, [facility] V28) DX:Diabetes mellitus type 2, controlled, with complications ([facility]) Essential hypertension DX:Essent ial hypertension CKD (chronic kidney disease) stage 3, GFR 30-59 ml/min ([facility] V24, [facility] V28) Lumbar degenerative disc disease Gout Family [...] Description 01/14/2025 11:00 AM EDT Hospital Encounter [facility] Main OR [address] [place] [phone] Prabhjot Chavarria DPM [address] [address] 01/14/2025 11:00 AM EDT - 01/14/2025 12:15 PM EDT Surgery [facility] OR [address] [place] [phone] Prabhjot Chavarria DPM [address] [address] EXCISION LEFT METATARSAL HEAD [09270 (CPT )] 01/27/2025 9:15 AM EDT Office Visit Orthopedic Surgery - [place] [address] [phone] Prabhjot Chavarria DPM [address] [address] Scheduled Procedures Name Priority Associated Diagnoses Date/Ti [...] Panel) 05/12/2022 Colorectal Cancer Screening: Colonoscopy 05/12/2022 HIV Screening 05/12/2022 Hepatitis C Screening 05/12/2022 Social Influencers of Health Screening 05/12/2022 DTaP,Tdap,and Td Vaccines (2 - Td or Tdap) 07/03/2022 07/03/2012 Diabetes: Annual Urine Albumin-Creatinine Ratio (uACR) 12/24/2023 10/30/2021 Diabetes: Blood Sugar Control Test (HGBA1C) 12/24/2023 10/30/2021 Depression Screening 06/02/2024 Influenza Vaccine (#1) 2025 03/08/2020, 2019 Diabetes: [...] Routine 10/18/2024 8:48 AM EDT Follow-up exam BASIC METABOLIC PANEL Routine 06/29/2024 1:44 PM EST DEVANTE (acute kidney injury) ([facility] V24) HM URINE ALBUMIN CREATININE RATIO Routine 10/30/2021 HEMOGLOBIN A1C Routine 10/30/2021 from Last 3 Months or Most Recently Relevant to Health Maintenance Results * XR Foot 3+ Views Left (10/18/2024 8:48 AM EDT) Anatomical Region Laterality Modality Lower Extremities, Foot Left Computed Radiography Narrative 10/18/2024 10:06 PM EDT Left foot 3 views weightbearing: Marker placed underneath the foot at the ulcer site showing the third metatarsal as the area of pressure. Some osteophytic growth noted to the plantar area. No gas or osteolytic lesion us Prabhjot Chavarria DPM IMG XR PROCEDURES Final Res ult * (ABNORMAL) Basic metabolic panel (06/29/2024 1:44 PM EST) Sodium 136 133 - 145 mmol/L LAB CHEMISTRY METHOD 06/29/2024 6:47 PM [facility] Potassium 5.0 3.5 - 5.5 mmol/L LAB CHEMISTRY METHOD 06/29/2024 6:47 PM [facility] Chloride 101 96 - 110 mmol/L LAB CHEMISTRY METHOD 06/29/2024 6:47 PM [facility] CO2 30 21 - 32 mmol/L LAB CHEMISTRY METHOD 06/29/2024 6:47 PM [facility] Anion Gap 5 3 - 11 LAB CHEMISTRY METHOD 06/29/2024 6:47 PM [facility] Glucose 111(H) 70 - 100 mg/dL LAB CHEMISTRY METHOD 06/29/2024 6:47 PM [facility] BUN 24 5 - 25 mg/dL LAB CHEMISTRY METHOD 06/29/2024 6:47 PM [facility] Creatinine 1.68(H) 0.70 - 1.30 mg/dL LAB CHEMISTRY METHOD 06/29/2024 6:47 PM [facility] eGFR 49(L) >=60 mL/min/1. 73m2 LAB CHEMISTRY METHOD 06/29/2024 6:47 PM [facility] Comment:Calculation based on the Chronic Kidney Disease Epidemiology Collaboration (CKD-EPI) equation refit without adjustment for race. BUN/Creatinine Ratio 14.3 LAB CHEMISTRY METHOD 06/29/2024 6:47 PM [facility] Calcium 10.0 8.5 - 10.5 mg/dL LAB CHEMISTRY METHOD 06/29/2024 6:47 PM [facility] Blood Venous blood specimen / Unknown Venipuncture / Unknown 06/29/2024 1:44 PM EST 06/29/2024 1:44 PM EST Wander Abdalla MD LAB BLOOD ORDERABLES Fi nal Result [facility] ([facility]) [facility] [address] [place] [address], * HM Urine Albumin Creatinine Ratio (10/30/2021) Urine Albumin Creatinine Ratio Abstracted Historical Provider HEALTH MAINTENANCE Final Result * (ABNORMAL) Hemoglobin A1c (10/30/2021) Hemoglobin A1C 10.2(A) <=6.5 % Blood Venous blood specimen / Unknown Historical Provider LAB BLOOD ORDERABLES Brenda l Result from Last 3 Months or Most Recently Relevant to Health Maintenance Insurance MEDICAID - [place] Advance Directives Documents on File Type Date Recorded 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 Care Teams Raised Printer Relationship Specialty Start Date End Date Devi Moran MD [facility] [address] PCP - General Internal Medicine 09/11/21
--- OUTSIDE RECORDS SUMMARY | 2024-12-27 11:38 | XMS_ITS | Clinical Summary ---
Author Organization [facility] Address [address] [place] [address] Care Team Providers Care Print Controller Name Role Phone Unavailable Primary Care Provider [...] season) 2024 Influenza (#1) 2025 HPV Vaccine (No Doses Required) Completed Hep A Aged Out No longer eligi ble based on patient's age to complete this topic Hib Aged Out No longer eligi ble based on patient's age to complete this topic Meningococcal ACWY Aged Out No longer eligible based on patient's age to complete this topic
[2024-12-27 13:33] LABS: Hemoglobin A1C 176.2632 umol/L; Total Hemoglobin (HGBA1C) 3275.6514 umol/L
[2024-12-27 13:55] LABS: Alanine Aminotransferase 30 U/L (0-40); Albumin Level 4.4 g/dL (3.5-5.0); Alkaline Phosphatase 88 U/L (39-117); Anion Gap 12 (12-20); Aspartate Amino Transferase 25 U/L (5-37); Blood Urea Nitrogen 30 mg/dL (9-16); Calcium 9.3 mg/dL (8.4-10.2); Carbon Dioxide 27 mmol/L (22-29); Chloride 108 mmol/L (96-108); Estimated Glomerular Filt Rate 47; Potassium 4.7 mmol/L (3.3-5.1); Sodium 142 mmol/L (135-145); Total Protein 7.0 g/dL (6.5-8.0)
[2024-12-27 14:02] LABS: Thyroid Stimulating Hormone 1.95 uIU/mL (0.32-4.0)
== END 2024-12-27 10:30 | disposition home or self-care (01) ==
LOC: HO.10HDL 10:29
PROVIDERS: Visit Provider Internal Medicine
DX: E11.22 Type 2 diabetes mellitus with diabetic chronic kidney disease (principal); E11.3519 Type 2 diabetes mellitus with proliferative diabetic retinopathy with macular edema, unspecified eye; E11.40 Type 2 diabetes mellitus with diabetic neuropathy, unspecified; E11.65 Type 2 diabetes mellitus with hyperglycemia; N18.9 Chronic kidney disease, unspecified; E78.00 Pure hypercholesterolemia, unspecified; M25.512 Pain in left shoulder; R80.8 Other proteinuria
CPT/HCPCS: 36415; 80053; 83036; 84153; 84443

== ENCOUNTER → 2025-02-23 09:15 | Outpatient (BNV) | payer MEDICAID, SELFPAY | PROVIDERS: Absent Provider Internal Medicine; PCP Internal Medicine; Visit Provider Radiology Vascular & Interventional Radiology | DX: M25.512 Pain in left shoulder (principal) | CPT/HCPCS: 73030 ==

== ENCOUNTER 2025-02-23 09:25 | Outpatient (AMB) | payer MEDICAID, SELFPAY ==
--- OUTSIDE RECORDS SUMMARY | 2025-02-22 14:00 | XMS_ITS | Encounter Summary ---
Author Organization [facility] Address [address] [place] [address] Care Team Providers Care Injection Wax Molder Name Role Phone Devi Moran MD Primary Care Provider [phone] Reason for Visit * Reason Comments Post-op Po-Dehiscence of ope rative wound, initial encounterUlcer of midfoot, right, with necrosis of muscle (HCC) Encounter Details Date Type Department Care Team (Late st Contact Info) Description 02/22/2025 2:00 PM EDT Office Visit [facility] Surgery [facility] [address] [phone] Prabhjot Chavarria, DPM [address] [address] History of amputation of left foot through metatarsal bone ([facility] V24, [facility] V28) (Primary Dx); Cellulitis of left lower extremity; Dehiscence of operative wound, subsequent encounter; Ulcer of heel and midfoot, left, with fat layer exposed ([facility] V24, [facility] V28) Social History Tobacco Use Types Packs/Day Years Used Date Smoking Tobacco: Never Smokeless Tobacco: Never Alcohol Use Standard Drinks/Week Comments Never 0 (1 standard drink = 0.6 oz pur e alcohol) Interpersonal Safety Answer Date Record ed Physical Abuse 01/14/2025 Verbal Abuse 01/14/2025 Sex and Gender Information Value Date Recorded Sex Assigned at Male 01/06/2025 1:54 PM EDT Legal Sex Male 11:45 PM EST Gender Identity Male 01/06/2025 1:54 PM EDT Sexual Orientation Not on file documented as of this encounter Ordered Prescriptions Prescription Sig Dispense Quantity Refills Last Filled Start Date End Date linezolid (Zyvox) 600 mg tablet Take 1 tablet (600 mg total) by mouth 2 (two) times a day for 10 days. 20 each 02/22/2025 03/04/2025 documented in this encounter Progress Notes * Prabhjot Chavarria DPM - 02/22/2025 2:00 PM EDT IDENTIFIER: Lily is a 54 y.o. year old male who presents for consultation. CC: Left foot wound HPI: 54-year-old diabetic male is 6 weeks status post removal of metatarsal. Patient notes he has been getting some swelling and redness around the left leg and into the ankle. Patient is having some soreness ambulating with the right leg as well. Patient notes that his sugar has been well-controlled. ROS: GENERAL: Pt denies nausea, fever, vomiting, [...] Morbid obesity with BMI of 40.0-44.9, adult ([facility] V24, [facility] V28) Type 2 diabetes mellitus with hyperglycemia, with long-term current use of insulin ([facility] V24, [facility] V28) Other acute osteomyelitis of left foot ([facility] V24, [facility] V28) SOCIAL HISTORY: Social History Tobacco Use Smoking status: Never Smokeless tobacco: Never Substance Use Topics Alcohol use: Never ACTIVE MEDICATIONS: Outpatient Medications Marked as Taking for the 02/22/25 encounter (Office Visit) with Prabhjot A Deon, DPM Medication Sig Dispense Refill amLODIPine (NORVASC) 5 mg tablet Take 2 tablets (10 mg total) by mouth at bedtime. aspirin 81 mg EC tablet Take 1 tablet (81 mg total) by mouth 1 (one) time each day. atorvastatin (LIPITOR) 80 mg tablet Take 1 tablet (80 mg total) by mouth 1 (one) time each day. carvediloL (COREG) 25 mg tablet Take 25 mg by mouth 2 times daily (with meals). colchicine (MITIGARE) 0.6 mg capsule capsule 1 capsule (0.6 mg total) if needed. gabapentin (NEURONTIN) 300 mg capsule Take 1 capsule (300 mg total) by mouth at bedtime. insulin glargine (Lantus Solostar U-100 Insulin) 100 unit/mL (3 mL) injection pen Inject 24 Units under the skin at bedtime. insulin lispro (HumaLOG KwikPen Insulin) 100 unit/mL injection pen 8 Units 3 (three) times a day before meals. Sliding scale losartan (COZAAR) 25 mg tablet Take 1 tablet (25 mg total) by mouth at bedtime. pen needle, diabetic 32 gauge x 5/32 needle by Does not apply route. rosuvastatin (CRESTOR) 40 mg tablet Take 1 tablet (40 mg total) by mouth at bedtime. Trulicity 0.75 mg/0.5 mL pen injector injection INJECT 1 PEN (0.75 MG) SUBCUTANEOUSLY ONCE WEEKLY ALLERGIES: @ALL@ PHYSICAL EXAM: There were no vitals taken for this visit. PODIATRIC EXAMINATION: GENERAL: Patient appears well nourished, with NAD. VASCULAR: Dorsalis pedis pulses are 2/4 bilaterally and Posterior tibial pulses are 2/4 bilaterally. Capillary filling time within normal limits the digits. No pallor on elevation or rubor on dependency. Positive hair growth. No varicosities. Denies rest pain or claudication pain. NEUROLOGICAL: Sharp/dull sensation diminished, protective sensation diminished on [place]. Multipleperipheral neuropathies bilaterally. ORTHOPEDIC: Good muscle strength 5/5 of all flexors and extensors. Dorsi flexion of ankle ,10 degrees, plantar flexion WNL. No muscle atrophy. Adequate plantar flexor strength to the left lower extremity without loss of palpable cord to the Achilles tendon DERMATOLOGICAL:. Further surgical wound dehiscence to the plantar aspect of the left foot creating a 0.5 cm x 0.5 cm x 1 cm deep wound with fibrogranular base and subcutaneous tissue. Concerns that there is some redness extending up to the mid calf area and swelling through the midfoot of the left lower extremity. BIOMECHANICS: STJ ROM wnl, MTJ ROM wnl, 1st MPJ ROM wnl. IMPRESSION: 1. History of amputation of left foot through metatarsal bone ([facility] V24, [facility] V28) 2. Cellulitis of left lower extremity 3. Dehiscence of operative wound, subsequent encounter 4. Ulcer of heel and midfoot, left, with fat layer exposed ([facility] V24, [facility] V28) PLAN: Pt was seen and examined, history reviewed. Patient was once again educated that not returning to the cam boot is what is causing some difficulty with the healing of the Achilles tendon lengthening area. Patient was instructed that he needs todecrease the motion to the Achilles tendon as that heals otherwise he will have an overabundance ofscar tissue and rigidity. Patient is a return of clinical signs of infection. Patient has failed multiple levels of outpatient antibiotics patient was placed on Zyvox 600 mg twice daily for 10 days. Open wound selective debridement of devitalized soft [...] Care Team (Late st Contact Info) Description 03/02/2025 1:15 PM EDT Office Visit [facility] [address] [phone] Prabhjot Chavarria DPM 175 [facility] [address] [place] [phone] documented as of this encounter Visit Diagnoses Diagnosis History of amputation of left foot through metatarsal bone ([facility] V24, [facility] V28)- Primary Cellulitis of left lower extremity Dehiscence of operative wound, subsequent encounter Ulcer of heel and midfoot, left, with fat layer exposed ([facility] V24, [facility] V28) documented in this encounter Care Teams Injection Wax Molder Relationship Specialty Start Date End Date Devi Moran MD [address] [facility] [address] [place], [place] PCP - General Internal Medicine 09/11/21 documented as of this encounter
--- NOTE | 2025-02-23 09:37 | A.OFFVIS_ITS ---
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 Patient referred by PCP for left shoulder impingement. Today patient reports his pain started about 2.5 years ago and is getting worse. He complains of difficulty with sleeping due to pain at the top and anterior aspect of shoulder. At times he has difficulty with lifting items. Denies injury. No previous treatment. He mentions that he will be starting an antibiotic, Linezolid due to swelling in his ankle from a recent foot surgery. 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 He has been experiencing pain for proximally 2-1/2 years. 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 Mainly he experiences pain at night when he sleeping. He states he puts his arm up overhead or tries to rested on a pillow and has discomfort. He has discomfort with overhead reaching and lifting objects. He is currently being treated for a left foot infection due to what sounds like an ulcer that developed from a callus. He is currently on linezolid. [facility] Medical History (Updated 02/23/25 @ 10:03 by Naz Orellana PA-C) Uncontrolled type 2 diabetes mellitus with hyperglycemia, with long-term current use of insulin Amputation of toe of left foot Surgical History (Updated 02/23/25 @ 09:42 by DAYLIN Felder) Hx of cholecystectomy History of lumbar surgery Hx of foot surgery Family History Mother Diabetes Father Lung cancer Social History Household Members: Significant Other Housing: House Alcohol intake: current Alcohol intake frequency: holidays/special occasions only Patient Tobacco Use Status: Never used Tobacco service: No Current occupational status: unemployed Current occupation: right hand dominant Review of Systems Const All systems reviewed & are unremarkable except as noted in HPI and below Physical Exam Const General: cooperative and no acute distress Orientation/consciousness: patient oriented x3 Resp Effort & Inspection: normal respiratory effort and able to speak in complete sentences Cardio Peripheral pulses: Peripheral pulses 2+ throughout Neuro General: patient oriented x3 Extrem Other: Left shoulder is normal to inspection he has full range of motion in all planes. Has tenderness over the proximal biceps with a positive Oldham's. 5/5 rotator cuff strength. Neurovascularly intact. Results Reviewed Results Reviewed: X-rays of the left shoulder obtained in the office today and reviewed by me show AC joint arthritis. Glenohumeral Joint space is well-preserved. Assessment & Plan Assessment & Plan (1) Arthritis of left acromioclavicular joint: Code(s): M19.012 - Primary osteoarthritis, left shoulder Category: Medical (2) Impingement syndrome of left shoulder: Code(s): M75.42 - Impingement syndrome of left shoulder Category: Medical Plan We discussed options which include steroid injection but we will hold off on this today as he is being treated for foot infection. I do not want this to interfere with his immune response. I also placed an order for physical therapy he will contact the office to make an appointment. When his foot infection is cleared up if he would like to have an injection he can contact our office to make an appointment at any time. Orders: Orders XR shoulder LT min 2V Today M25.512 - Pain in left shoulder PT Evaluation and Treatment Today M19.012 - Primary osteoarthritis, left shoulder, M75.42 - Impingement syndrome of left shoulder Medications: New celecoxib (Celebrex) 200 mg PO BID 60 caps 3RF 30 days Coding Level of Care Code New Pt Level 3 (70563) Complex EM visit Add On G2211 Diagnoses Arthritis of left acromioclavicular joint M19.012 Impingement syndrome of left shoulder M75.42
--- OUTSIDE RECORDS SUMMARY | 2025-02-23 11:14 | XMS_ITS | Clinical Summary ---
Author Organization [facility] Address [address] [place] [address] Care Team Providers Care Warehouse Shipping Clerk Name Role Phone Unavailable Primary Care Provider [...] COVID-19 Vaccine ( - 2023-2 5 season) 2025 Influenza (#1) 2025 HPV Vaccine (No Doses Required) Completed Hep A Aged Out No longer eligi ble based on patient's age to complete this topic Hib Aged Out No longer eligi ble based on patient's age to complete this topic Meningococcal ACWY Aged Out No longer eligible based on patient's age to complete this topic
--- OUTSIDE RECORDS SUMMARY | 2025-02-23 11:14 | XMS_ITS | Clinical Summary ---
Author Organization 175 [facility] Address [address] [place] [address] Phone Care Team Providers Care Ramp Service Employee Name Role Phone Devi Moran MD Primary Care Provider [phone] Allergies No known active allergies Medications pen needle, diabetic 32 gauge x 5/32 needle by Does not apply route. Active amLODIPine (NORVASC) 5 mg tablet Take 2 tablets (10 mg total) by mouth at bedtime. Active carvediloL (COREG) 25 mg tablet Take 25 mg by mouth 2 times daily (with meals). Active colchicine (MITIGARE) 0.6 mg capsule capsule 1 capsule (0.6 mg total) if needed. Active gabapentin (NEURONTIN) 300 mg capsule Take 1 capsule (300 mg total) by mouth at bedtime. Active insulin glargine (Lantus Solostar U-100 Insulin) 100 unit/mL (3 mL) injection pen Inject 24 Units under the skin at bedtime. 10/12/19 22 Active insulin lispro (HumaLOG KwikPen Insulin) 100 unit/mL injection pen 8 Units 3 (three) times a day before meals. Sliding scale Active rosuvastatin (CRESTOR) 40 mg tablet Take 1 tablet (40 mg total) by mouth at bedtime. Active atorvastatin (LIPITOR) 80 mg tablet Take 1 tablet (80 mg total) by mouth 1 (one) time each day. Active aspirin 81 mg EC tablet Take 1 tablet (81 mg total) by mouth 1 (one) time each day. 05/27/20 24 Active losartan (COZAAR) 25 mg tablet Take 1 tablet (25 mg total) by mouth at bedtime. 06/12/19 25 Active Trulicity 0.75 mg/0.5 mL pen injector injection INJECT 1 PEN (0.75 MG) SUBCUTANEOUSLY ONCE WEEKLY 01/11/20 25 Active linezolid (Zyvox) 600 mg tablet Take 1 tablet (600 mg total) by mouth 2 (two) times a day for 10 days. 20 each 02/23/20 25 025 Active acetaminophen (Tylenol 8 Hour) 650 mg 8 hr tablet Take 1 tablet (650 mg total) by mouth every 8 (eight) hours if needed for mild pain. Do not crush, chew, or split. 90 tablet 01/14/20 25 025 ibuprofen (ADVIL,MOTRIN) 800 mg tablet Take 1 tablet (800 mg total) by mouth 3 (three) times a day. 90 each 01/14/20 25 025 doxycycline (Vibramycin) 100 mg capsule Take 1 capsule (100 mg total) by mouth 2 (two) times a day for 10 days. 20 each 01/15/20 25 025 sulfamethoxazo le-trimethopri m (BACTRIM DS,SEPTRA DS) 800-160 mg per tablet Take 1 tablet by mouth 2 (two) times a day for 14 days. 28 each 01/28/20 25 025 Active Problems Problem Noted Date Diagnosed Date Other acute osteomyelitis of left foot ([facility] V24, [facility] V28) 06/01/2024 Morbid obesity with BMI of 4 0.0-44.9, adult ([facility] V24, [facility] V28) 03/26/2024 Type 2 diabetes mellitus wit h hyperglycemia, with long-term current use of insulin ([facility] V24, [facility] V28) 03/26/2024 DDD (degenerative disc disease), lumbar [...] 10/11/2021 Foot callus 07/01/2018 Foot pain 07/01/2018 Resolved Problems Problem Noted Date Diagnosed Date Resolved Date Ulcer of heel and midfoot, l eft, with fat layer exposed ([facility] V24, [facility] V28) 10/18/2024 01/14/2025 Metatarsalgia of left foot 10/18/2024 0 01/14/2025 Encounters Date Type Department Care Team Description 02/22/2025 2:00 PM EDT Office Visit Orthopedic Surgery [facility] [address] [phone] Prabhjot Chavarria DPM History of amputation of left foot through metatarsal bone ([facility] V24, [facility] V28) (Primary Dx); Cellulitis of left lower extremity; Dehiscence of operative wound, subsequent encounter; Ulcer of heel and midfoot, left, with fat layer exposed ([facility] V24, [facility] V28) 02/16/2025 11:00 AM EDT Office Visit Orthopedic Surgery [facility] [address] [phone] Prabhjot Chavarria DPM History of amputation of left foot through metatarsal bone ([facility] V24, [facility] V28) (Primary Dx); Cellulitis of left lower extremity; Dehiscence of operative wound, subsequent encounter; Ulcer of heel and midfoot, left, with fat layer exposed (CMS/HCC V24, CMS/HCC V28) 02/09/2025 10:30 AM EDT Office Visit Orthopedic Surgery [facility] [address] [phone] Prabhjot Chavarria DPM History of amputation of left foot through metatarsal bone (CMS/HCC V24, CMS/HCC V28) (Primary Dx); Cellulitis of left lower extremity; Dehiscence of operative wound, subsequent encounter; Midfoot ulceration, left, with necrosis of muscle (CMS/HCC V24, CMS/HCC V28) 02/02/2025 10:45 AM EDT Office Visit Orthopedic Surgery [facility] [address] [phone] Prabhjot Chavarria DPM Acute osteomyelitis of left foot ([facility] V24, [facility] V28) (Primary Dx); History of amputation of left foot through metatarsal bone ([facility] V24, CMS/HCC V28); Cellulitis of left lower extremity; Dehiscence of operative wound, subsequent encounter; Midfoot ulceration, left, with necrosis of muscle (CMS/HCC V24, CMS/HCC V28) 01/27/2025 9:15 AM EDT Office Visit Orthopedic [facility] [address] [phone] Prabhjot Chavarria DPM History of amputation of left foot through metatarsal bone (CMS/HCC V24, CMS/HCC V28) (Primary Dx); Cellulitis of left lower extremity; Dehiscence of operative wound, subsequent encounter; Midfoot ulceration, left, with necrosis of muscle (CMS/HCC V24, CMS/HCC V28); Cellulitis of left foot 01/20/2025 Telephone Orthopedic Surgery [facility] [address] [phone] Prabhjot Chavarria DPM 01/14/2025 9:30 AM EDT - 01/14/2025 10:45 AM EDT Surgery [facility] Main OR [address] [place] [phone] Prabhjot Chavarria DPM EXCISION LEFT METATARSAL HEAD, WITH TENDOACHILLES LENGTHENING [20050 (CPT )] 01/14/2025 8:58 AM EDT Anesthesia Event [facility] OR [address] [place] [phone] Tj Coe MD 01/14/2025 7:52 AM EDT - 01/14/2025 10:51 AM EDT Hospital Encounter [facility] OR [address] [place] [phone] Prabhjot Chavarria DPM Ulcer of heel and midfoot, left, with fat layer exposed ([facility] V24, [facility] V28); Metatarsalgia of left foot Discharge Disposition: Home or Self Care 01/14/2025 Telephone Orthopedic Surgery [facility] [address] [phone] Prabhjot Chavarria DPM 12/07/2024 2:00 PM EDT Office Visit Orthopedic Surgery [facility] [address] [place] [phone] Prabhjot Chavarria DPM History of amputation of left foot through metatarsal bone ([facility] V24, [facility] V28) (Primary Dx); Poorly controlled type 2 diabetes mellitus with neuropathy ([facility] V24, [facility] V28); Ulcer of heel and midfoot, left, with fat layer exposed ([facility] V24, [facility] V28) from Last 3 Months Immunizations Name [...] Left Left 3rd toe amp FOOT SURGERY Left amputation l middle toe/ L3/R3SX SPINE SURGERY Medical History Medical History Date Comments Diabetes mellitus type 2, co ntrolled, with complications ([facility] V24, [facility] V28) DX:Diabetes mellitus type 2, controlled, with complications ([facility]) Essential hypertension DX:Essent ial hypertension CKD (chronic kidney disease) stage 3, GFR 30-59 ml/min ([facility] V24, [facility] V28) Lumbar degenerative disc disease Gout Hyperlipidemia Neuromuscular disorder ([facility]/ [facility] V24, [facility] V28) Joint pain gout as needed Family History Medical History Relation Name Comments [...] PM EDT Sexual Orientation Not on file Obstetrics History Last Filed Vital Signs Vital Sign Reading Time Taken Comments Blood Pressure 149/84 01/14/2025 10:24 AM EDT Pulse 86 01/14/2025 10:24 AM EDT Temperature 36.2 C (97.1 F) 01/14/2025 10:06 AM EDT Respiratory Rate 16 01/14/2025 10:24 AM EDT Oxygen Saturation 97% 01/14/2025 10:24 AM EDT Inhaled Oxygen Concentration - - Weight 127 kg (280 lb) 01/07/2025 9:00 AM EDT Height 185.4 cm (6' 1 ) 01/07/2025 9:00 AM EDT Body Mass Index 36.94 01/07/2025 9:00 AM EDT Plan of Treatment Upcoming Encounters Date Type Department Care Team (Late st Contact Info) Description 03/02/2025 1:15 PM EDT Office Visit Orthopedic [place] 250 175 [facility] [address] [place] [phone] Prabhjot Chavarria DPM 175 [facility] [address] [place] [address] Health Maintenance Due Date Last Done Comments [...] 06/29/2025 06/29/2024, 06/07/2024, 06/02/2024, Additional history exists RSV Immunization Adult Patients (1 - 1-dose 75+ series) 09/09/2046 HIB Vaccines Aged Out No longer eligi [...] on patient's age to complete this topic Medical Devices Implanted Type Area Roll Line Operator Device Identifier Shelf Expiration Date Model / Serial / Lot Spinal Hardware Spinal Hardware N/A: Back Procedures Procedure Name Priority Date/Time Associated Diagnosis Comments XR FOOT 2 VIEWS LEFT Routine 01/14/2025 10:45 AM EDT TISSUE EXAM Routine 01/14/2025 9:29 AM EDT Ulcer of heel and midfoot, left, with fat layer exposed ([facility]/HCC V24, CMS/[facility] V28) Metatarsalgia of left foot CULTURE WOUND DEEP Routine 01/14/2025 9: 26 AM EDT Ulcer of heel and midfoot, left, with fat layer exposed ([facility]/HCC V24, CMS/[facility] V28) Metatarsalgia of left foot [place] OSTECTOMY COMPLETE EXCISION OTHER METATARSAL HEAD 01/14/2025 8:58 AM EDT Ulcer of heel and midfoot, left, with fat layer exposed (CMS/HCC V24, CMS/HCC V28) Metatarsalgia of left foot Case Notes Mini C-Arm, [employer] Special Needs CASE MOVED UP/TIME GD FROM 11 TO 930AM PER ANALESE VIA TEAMS AC 12/29 BASIC METABOLIC PANEL Routine 06/29/2024 1:44 PM EST DEVANTE (acute kidney injury) (CMS/HCC V24) HM URINE ALBUMIN CREATININE RATIO Routine 10/30/2021 HEMOGLOBIN A1C Routine 10/30/2021 from Last 3 Months or Most Recently Relevant to Health Maintenance Results * XR Foot 2 Views Left (01/14/2025 10:45 AM EDT) Anatomical Region Laterality Modality Lower Extremities, Foot Left [facility] 01/14/2025 10:4 8 AM EDT Impressions 01/14/2025 10:52 AM EDT The patient is seen to have just undergone of the distal aspect of the third metatarsal and proximal aspect of the fifth metatarsal. The patient has undergone previous amputation at the third metatarsal-phalangeal joint and at the head of the fourth metatarsal. -------- FINAL REPORT -------- Dictated By: Noman Sage Dictated Date: 01/14/2025 10:48 ET Assigned Physician: Noman Sage Reviewed and Electronically Signed By: Noman Sage Signed Date: 01/14/2025 10:52 ET Workstation ID: [id number] Transcribed By: Self Edit Transcribed Date: 01/14/2025 10:48 ET Narrative 01/14/2025 10:52 AM EDT HISTORY: The patient is a 54-year-old male undergoing left foot surgery. FINDINGS: AP and lateral radiographs of the left foot are obtained. The patient is seen to have undergone previous amputation at the third metatarsal-phalangeal joint and at the head of the fourth metatarsal, as demonstrated on the prior study performed 05/31/2024. The patient is now seen to have undergone amputation at the distal aspect of the third metatarsal and proximal diaphysis of the fifth metatarsal. Degenerative osteophytes are present arising from the dorsal aspect of the talus, navicular, and medial cuneiform. Procedure Note Noman Sage MD - 01/14/2025 HISTORY: The patient is a 54-year-old male undergoing left foot surgery. FINDINGS: AP and lateral radiographs of the left foot are obtained. Thepatient is seen to have undergone previous amputation at the thirdmetatarsal-phalangeal joint and at the head of the fourth metatarsal, asdemonstrated on the prior study performed 05/31/2024. The patient is nowseen to have undergone amputation at the distal aspect of the thirdmetatarsal and proximal diaphysis of the fifth metatarsal. Degenerativeosteophytes are present arising from the dorsal aspect of the talus,navicular, and medial cuneiform. IMPRESSION: The patient is seen to have just undergone of the distal aspect of thethird metatarsal and proximal aspect of the fifth metatarsal. The patienthas undergone previous amputation at the third metatarsal-phalangeal jointand at the head of the fourth metatarsal. -------- FINAL REPORT -------- Dictated By: Noman Sage Dictated Date: 01/14/2025 10:48 ET Assigned Physician: Noman Sage Reviewed and Electronically Signed By: Noman Sage Signed Date: 01/14/2025 10:52 ET Workstation ID: [id number] Transcribed By: Self Edit Transcribed Date: 01/14/2025 10:48 ET us Prabhjot Chaavrria DPM IMG XR PROCEDURES Final Res ult * Tissue exam (01/14/2025 9:29 AM EDT) Final Diagnosis A. Foot, Left, soft tissue of midfoot-excision: -GANGRENOUS NECROSIS B. Foot, Left, clean margin of 3rd metatarsal-excisi on: -ACUTE OSTEOMYELITIS 01/18/2025 1:11 PM EDT [facility] Gross Description A. Foot, Left, dirty soft tissue of midfoot: Labeled foot L, dirty sof . Received in formalin is a 3.3 x 1.8 cm irregular disrupted lew-brown skin ellipse excised to a depth of 1.8 cm. The deep margin is disrupted. The epidermis displays a 0.9 x 0.9 cm necrotic ulceration located 0.2 cm from the skin margin, and involving the deep margin. Also received in same container is a 1.2 x 0.5 x 0.2 cm dusky tissue fragment. Freelance Copywriter sections are submitted in one cassette, three pieces. B. Foot, Left, clean margin of 3rd metatarsal: Labeled foot L, left victor hugo . Received in formalin is a 2.2 x 1.3 x 1.1 cm irregular lew-yellow bone fragment with moderate attached soft tissue. The cut surfaces are comprised of pink-yellow trabecular bone. A chain sales representative longitudinal cross-section is submitted in one cassette following decalcification, one piece. BIRD 01/18/2025 1:11 PM EDT [facility] Disclaimer Unless otherwise specified, all tissue is 10% NB formalin fixed and paraffin embedded. 01/18/2025 1:11 PM EDT [facility] Skin Structure of left foot / Unknown 01/14/2025 9:29 AM EDT 01/14/2025 2:23 PM EDT Cartilage specimen (specimen) Structure of left foot / Unknown 01/14/2025 9:32 AM EDT 01/14/2025 11:05 AM EDT us Prabhjot Chavarria DPM LAB PATHOLOGY ORDERABLES Fi nal Result [facility] [address] [place] [address], * (ABNORMAL) Culture wound deep (01/14/2025 9:26 AM EDT) Culture, Wound Proteus mirabilis(A) KAREEM 01/17/2025 10:02 AM EDT [facility] Comment: The organism value for this result has been updated. These results have been appended to the previously preliminary verified report. This is an edited result. Previous organism was Gram negative bacilli on 01/15/2025 at 1107 EDT. Gram Stain Result No Polymorphonuclear leukocytes(A) 01/17/2025 10:02 AM EDT [facility] Gram Stain Result No epithelial cells seen(A) 01/17/2025 10:02 AM EDT [facility] Gram Stain Result Rare Gram positive cocci in pairs(A) 01/17/2025 10:02 AM EDT [facility] Swab Structure of left foot / Unknown 01/14/2025 9:26 AM EDT 01/14/2025 2:15 PM EDT Narrative [facility] - 01/17/2025 10:02 AM EDT Mixed normal skin ahsan present Organism Antibiotic Method Susceptibility Proteus mirabilis Ampicillin/Sulbactam KAREEM <=2 ug/ml: Susceptible Proteus mirabilis Piperacillin/Tazobactam KAREEM <=4 ug/ml: Susceptible Proteus mirabilis Cefazolin (Other) KAREEM 4 ug/ml: Intermediate Proteus mirabilis Cefoxitin KAREEM 8 ug/ml: Susceptible Proteus mirabilis Ceftazidime KAREEM <=0.5 ug/ml: Susceptible Proteus mirabilis Ceftriaxone KAREEM <=0.25 ug/ml: Susceptible Proteus mirabilis Cefepime KAREEM <=0.12 ug/ml: Susceptible Proteus mirabilis Meropenem KAREEM 1 ug/ml: Susceptible Proteus mirabilis Gentamicin KAREEM 2 ug/ml: Susceptible Proteus mirabilis Ciprofloxacin KAREEM <=0.06 ug/ml: Susceptible Proteus mirabilis Levofloxacin KAREEM <=0.12 ug/ml: Susceptible Proteus mirabilis Trimethoprim/Sulfamethoxazole KAREEM <=20 ug/ml: Susceptible Prabhjot ESTRADA LAB MICROBIOLOGY - GENERAL ORDERABLES Final Result [facility] [address] [place] [address], * (ABNORMAL) Basic metabolic panel (06/29/2024 1:44 PM EST) Sodium 136 133 - 145 mmol/L LAB CHEMISTRY METHOD 06/29/2024 6:47 PM EST [facility] Potassium 5.0 3.5 - 5.5 mmol/L LAB CHEMISTRY METHOD 06/29/2024 6:47 PM EST [facility] Chloride 101 96 - 110 mmol/L LAB CHEMISTRY METHOD 06/29/2024 6:47 PM EST [facility] CO2 30 21 - 32 mmol/L LAB CHEMISTRY METHOD 06/29/2024 6:47 PM EST [facility] Anion Gap 5 3 - 11 LAB CHEMISTRY METHOD 06/29/2024 6:47 PM [facility] Glucose 111(H) 70 - 100 mg/dL LAB CHEMISTRY METHOD 06/29/2024 6:47 PM [facility] BUN 24 5 - 25 mg/dL LAB CHEMISTRY METHOD 06/29/2024 6:47 PM [facility] Creatinine 1.68(H) 0.70 - 1.30 mg/dL LAB CHEMISTRY METHOD 06/29/2024 6:47 PM [facility] eGFR 49(L) >=60 mL/min/1. 73m2 LAB CHEMISTRY METHOD 06/29/2024 6:47 PM [facility] Comment:Calculation based on the Chronic Kidney Disease Epidemiology Collaboration (CKD-EPI) equation refit without adjustment for race. BUN/Creatinine Ratio 14.3 LAB CHEMISTRY METHOD 06/29/2024 6:47 PM [facility] Calcium 10.0 8.5 - 10.5 mg/dL LAB CHEMISTRY METHOD 06/29/2024 6:47 PM [facility] Blood Venous blood specimen / Unknown Venipuncture / Unknown 06/29/2024 1:44 PM EST 06/29/2024 1:44 PM EST Wander Abdalla MD LAB BLOOD ORDERABLES Fi nal Result [facility] [address] [place] [address], * HM Urine Albumin Creatinine Ratio (10/30/2021) Urine Albumin Creatinine Ratio Abstracted Farrah Provider HEALTH MAINTENANCE Final Result * (ABNORMAL) Hemoglobin A1c (10/30/2021) Hemoglobin A1C 10.2(A) <=6.5 % Blood Venous blood specimen / Unknown us Historical Provider LAB BLOOD ORDERABLES Brenda l Result from Last 3 Months or Most Recently Relevant to Health [place] [address] [place] Advance Directives Documents on File Type Date Recorded Patient Freelance Copywriter Expl anation Health Care Decision (hx) 10/13/2023 [...] currently active code status orders. Care Teams Ramp Service Employee Relationship Specialty Start Date End Date Devi Moran MD [address] PCP - General Internal Medicine 09/11/21
--- OUTSIDE RECORDS SUMMARY | 2025-02-23 11:14 | XMS_ITS | Clinical Summary ---
Author Organization [facility] Address [address] [place] [address] Phone Care Team Providers Care Publications Designer Name Role Phone Devi Moran MD Primary Care Provider [phone] Allergies No known active allergies Medications carvedilol [...] (6 to 49 Years) Discontinued 12/07/2018 Insurance [facility] [employer] Comp [phone] [place] [address] [facility] [employer] Comp [phone] [place] [address] Care Teams Publications Designer Relationship Specialty Start Date End Date Devi Moran MD [facility] [address] PCP - General Internal Medicine 04/10/21
== END 2025-02-23 09:59 | disposition home or self-care (01) ==
LOC: HO.HOS 09:26
PROVIDERS: PCP Internal Medicine; Visit Provider Physician Assistant
DX: M19.012 Primary osteoarthritis, left shoulder (principal); M75.42 Impingement syndrome of left shoulder
CPT/HCPCS: 99203

== ENCOUNTER 2025-02-23 10:12 | Outpatient (REF) | payer MEDICAID, SELFPAY ==
--- NOTE | ~2025-02-23 | XR_ITS ---
CLINICAL HISTORY: M25.512 - Pain in left shoulder 3 view left shoulder Comparison: None provided Findings: No fractures or dislocations. Mild degenerative changes of the glenohumeral and acromioclavicular joints. No erosions. No radiopaque foreign body. IMPRESSION: Mild degenerative changes of the glenohumeral and acromioclavicular joints. This document has been electronically signed by: Russell Alexandra MD on 02/23/2025 12:13:50
[2025-02-23 11:45] LABS: Alanine Aminotransferase 23 U/L (0-40); Albumin Level 4.5 g/dL (3.5-5.0); Alkaline Phosphatase 88 U/L (39-117); Anion Gap 12 (12-20); Aspartate Amino Transferase 31 U/L (5-37); Blood Urea Nitrogen 37 mg/dL (9-16); Calcium 9.9 mg/dL (8.4-10.2); Carbon Dioxide 26 mmol/L (22-29); Chloride 106 mmol/L (96-108); Cholesterol 78 mg/dL (<200); Estimated Glomerular Filt Rate 36; HDL Cholesterol 26 mg/dL (>40); Potassium 5.0 mmol/L (3.3-5.1); Sodium 139 mmol/L (135-145); Total Protein 7.7 g/dL (6.5-8.0); Triglycerides 97 mg/dL (<150)
== END 2025-02-23 10:13 | disposition home or self-care (01) ==
LOC: HO.HOSX 10:12
PROVIDERS: Absent Provider Internal Medicine; PCP Internal Medicine; Visit Provider Physician Assistant
DX: M19.012 Primary osteoarthritis, left shoulder (principal); M75.42 Impingement syndrome of left shoulder; E11.65 Type 2 diabetes mellitus with hyperglycemia; N18.9 Chronic kidney disease, unspecified; E11.22 Type 2 diabetes mellitus with diabetic chronic kidney disease; E78.00 Pure hypercholesterolemia, unspecified; Z13.6 Encounter for screening for cardiovascular disorders; Z79.4 Long term (current) use of insulin; Z79.85 Long-term (current) use of injectable non-insulin antidiabetic drugs
CPT/HCPCS: 36415; 73030; 80053; 80061; 83036; 99212

== ENCOUNTER 2025-03-21 11:41 | Outpatient (AMB) | payer MEDICAID, SELFPAY ==
--- NOTE | 2025-03-21 11:44 | HO.NEPHOV_ITS ---
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 Required: No Accompanied by: Mother Allergies No Known Allergies Allergy (Verified 03/21/25 11:47) Medication List - Last Reconciled 03/21/25 by Paolo Greene MD amlodipine 10 mg PO DAILY aspirin 81 mg PO DAILY carvedilol 25 mg PO BID celecoxib (Celebrex) 200 mg PO BID 30 days colchicine 0.6 mg PO BID PRN dulaglutide (Trulicity) 1.5 mg subcut QWEEK gabapentin 300 mg PO TID PRN indomethacin 50 mg PO TID PRN insulin aspart U-100 8 units subcut TID insulin glargine (Lantus Solostar U-100 Insulin) units subcut losartan 25 mg PO DAILY rosuvastatin 40 mg PO BEDTIME HPI Comments Details: Middle-aged man with a history of longstanding diabetes mellitus of more than 20 years. Overall blood sugar has been well controlled. He was found to have CKD with a serum creatinine 1.2 mg/dL with urine albumin creatinine ratio of 461 and hence this referral. He is history of hypertension. Blood pressure has been well controlled as well. He has had few episodes of mild hyperkalemia with a potassium 5.6. He has not on any MAURICIO inhibitors. I suspect hyperkalemia could have been a reason why he has not on MAURICIO inhibitors. Today he has no new complaints today. He has no headache nausea vomiting no abdominal pain or constipation no urinary symptoms no fever no rash. All systems were reviewed 10/07/23; Tolerating Losartan:Still has foot ulcer 03/22/24; Underwent foot surgery;Now on BACTRIM for the past 1 week for a total of 3 weeks 09/28/24: Overall doing well. Recently had another foot surgery. NO urinary issues 03/21/25 - The patient is a 54-year-old male presenting with diabetes mellitus, hypertension, and chronic kidney disease. - Diabetes Mellitus: A1c improved to 6.9% as of February 23. - Hypertension: Managed with amlodipine and carvedilol. - Chronic Kidney Disease: Kidney function at 36-40%. - Joint Pain: Celebrex 200 mg BID for 30 days prescribed by ortho; Cr up to 1.9 - Swollen Leg: Treated with antibiotics. [facility] Medical History (Updated 02/23/25 @ 10:03 by Naz Orellana PA-C) Uncontrolled type 2 diabetes mellitus with hyperglycemia, with long-term current use of insulin Amputation of toe of left foot Surgical History Hx of cholecystectomy History of lumbar surgery Hx of foot surgery Family History Mother Diabetes Father Lung cancer Social History Household Members: Significant Other Housing: House Alcohol intake: current Alcohol intake frequency: holidays/special occasions only Patient Tobacco Use Status: Never used Tobacco service: No Current occupational status: unemployed Current occupation: right hand dominant Physical Exam Vital Signs: Last Vital Signs Pulse 95 03/21/25 11:45 BP 108/62 03/21/25 11:45 Pulse Ox 8 L 03/21/25 11:45 Oxygen Delivery Method Room Air 03/21/25 11:45 BMI result Body Mass Index 39.8 Const General: comfortable; No acute distress Orientation/consciousness: patient oriented x3 Eyes General: appearance normal, both eyes and all related structures Visual Shultz: normal visual shultz by confrontation Neck Neck: Yes supple and Yes no JVD Resp Effort & Inspection: normal respiratory effort and respiratory effort not decreased Cardio Palpation: no palpable S3 and no palpable S4 Heart sounds: no rubs GI Inspection: Yes normal to inspection Palpation (GI): Soft to palpation Percussion: Yes normal to percussion Auscultation: normal bowel sounds General: Yes no CVA tenderness Back/Spine/Pelvis Back: no CVA tenderness Skin General skin exam: no petechiae and no purpura Neuro General: patient oriented x3 and no focal motor deficits Extrem General: No clubbing and No edema Results Reviewed Nephrology Results: Hgb, (14.0-18.0) 14.1 g/dl 09/21/24 WBC, (4.8-10.8) 9.6 X10*3/uL 09/21/24 Plt Count, (160-400) 197 X10*3/uL 09/21/24 Sodium, (135-145) 139 mmol/L 02/23/25 Potassium, (3.3-5.1) 5.0 mmol/L 02/23/25 Chloride, (96-108) 106 mmol/L 02/23/25 Carbon Dioxide, (22-29) 26 mmol/L 02/23/25 BUN, (9-16) 37 mg/dL H 02/23/25 Creatinine, (0.5-1.4) 1.97 mg/dL H 02/23/25 Calcium, (8.4-10.2) 9.9 mg/dL Δ 02/23/25 Urine Protein, (Neg-Trace) 100 (2+) mg/dL H 09/21/24 Urine Creatinine 156.01 mg/dL 09/21/24 Renal US 05/10/21 Assessment & Plan Assessment & Plan (1) CKD (chronic kidney disease) stage 3, GFR 30-59 ml/min: Code(s): N18.30 - Chronic kidney disease, stage 3 unspecified Category: Medical Plan: . Middle-aged man with stage 3 chronic kidney disease due to underlying diabetic kidney disease. He has non nephrotic range proteinuria again most likely due to underlying diabetic kidney disease. Goal is to slow the progression of renal disease I have discussed importance of tight control of blood pressure and blood sugar to slow the progression. Hemoglobin A1c should be maintained less than 7% and blood pressure less than 130/80 mm Hg. Creatinine at 1.9 Keep on losartan once a day and monitor serum creatinine potassium. He would benefit from SGLT2 inhibitors. Blood pressure is acceptable at this time. He should stay on low-sodium diet Would continue to screen for anemia and secondary hyperparathyroidism. History of gout. He is currently on allopurinol. I have discussed low purine diet as well. Uric acid was 8.9 Continue to avoid nephrotoxins including Bactrim and Celebrex . Orders: Orders Basic Metabolic Panel 5 Months N18.30 - Chronic kidney disease, stage 3 unspecified Uric Acid 5 Months N18.30 - Chronic kidney disease, stage 3 unspecified Creatinine Urine 5 Months N18.30 - Chronic kidney disease, stage 3 unspecified Total Protein Urine Random 5 Months N18.30 - Chronic kidney disease, stage 3 unspecified Medications: Discontinued celecoxib (Celebrex) Discontinued Reason: Doctor's Order 200 mg PO BID 30 days 60 caps 3RF Coding Level of Care Code Est Pt Level 4 (90699) Diagnoses CKD (chronic kidney disease) stage 3, GFR 30-59 ml/min N18.30
[2025-03-21 11:45] VITALS: BP 108/62; PULSE 95; O2SAT 8; BMI 39.8
== END 2025-03-21 12:01 | disposition home or self-care (01) ==
LOC: HO.HKA 11:42
PROVIDERS: PCP Internal Medicine; Visit Provider Internal Medicine Hypertension Specialist
DX: N18.30 Chronic kidney disease, stage 3 unspecified (principal)
CPT/HCPCS: 99214

== ENCOUNTER → 2025-03-21 11:41 | Outpatient (BNVA) | payer MEDICAID, SELFPAY | PROVIDERS: PCP Internal Medicine; Visit Provider Internal Medicine Hypertension Specialist | DX: N18.30 Chronic kidney disease, stage 3 unspecified (principal); E11.65 Type 2 diabetes mellitus with hyperglycemia; I10 Essential (primary) hypertension | CPT/HCPCS: 99212 ==

== ENCOUNTER 2025-04-14 08:51 | Outpatient (AMB) | payer MEDICAID, SELFPAY ==
--- NOTE | 2025-04-14 08:57 | A.OFFVIS_ITS ---
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 BMI 39.8 Allergies No Known Allergies Allergy (Verified 04/14/25 09:17) Medication List - Last Reconciled 04/14/25 by Kirby Golden MD amlodipine 10 mg PO DAILY aspirin 81 mg PO DAILY carvedilol 25 mg PO BID colchicine 0.6 mg PO BID PRN dulaglutide (Trulicity) 1.5 mg subcut QWEEK gabapentin 300 mg PO TID PRN indomethacin 50 mg PO TID PRN insulin aspart U-100 8 units subcut TID insulin glargine (Lantus Solostar U-100 Insulin) units subcut losartan 25 mg PO DAILY rosuvastatin 40 mg PO BEDTIME HPI Comments Details: previous weight loss efforts: intermittent fasting Wakes up: 7am, Sleeps: 10pm Breakfast: skips Lunch 1pm (3 boiled eggs, or 30gr Equate liquid protein shake) Dinner: 6pm (fish, beef, cauliflower rice) Snacks: none Exercise: dog walking Beverages: Coffee (16oz/d with splenda and creamer), Tea/Soda: none, Juice: Gatorade zero, ETOH: none PFSH Medical History (Updated 04/14/25 @ 10:01 by Kirby Golden MD) BMI 37.0-37.9, adult Obesity Uncontrolled type 2 diabetes mellitus with hyperglycemia, with long-term current use of insulin Amputation of toe of left foot Surgical History Hx of cholecystectomy History of lumbar surgery Hx of foot surgery Family History Mother Diabetes Father Lung cancer Social History (Reviewed 04/14/25 @ 09:02 by CHRISTINE Patel Household Members: Significant Other Housing: House Alcohol intake: current Alcohol intake frequency: holidays/special occasions only Patient Tobacco Use Status: Never used Tobacco service: No Current occupational status: unemployed Current occupation: right hand dominant Physical Exam Vital Signs: Last Vital Signs Temp 96.1 F L 04/14/25 09:00 Pulse 100 04/14/25 09:00 BP 156/90 H 04/14/25 09:00 Pulse Ox 99 04/14/25 09:00 Oxygen Delivery Method Room Air 04/14/25 09:00 BMI result Body Mass Index 37.0 GI Inspection: Yes normal to inspection, Yes incision (well healed) and Yes obesity Palpation (GI): Soft to palpation Extrem Right lower extremity: normal to inspection Left lower extremity: normal to inspection Assessment & Plan Assessment & Plan (1) Obesity: Code(s): E66.9 - Obesity, unspecified Category: Medical Qualifiers: Obesity type: due to excess calories Obesity classification: adult class 2 (BMI 35 - 39.9) Serious obesity comorbidity presence: with serious comorbidity Body mass index: BMI 37.0-37.9 Qualified Code(s): E66.01 - Morbid (severe) obesity due to excess calories; Z68.37 - Body mass index [BMI] 37.0- 37.9, adult Plan: 1.? Plan for lap sleeve gastrectomy. If diaphragmatic or ventral hernias are present at time of surgery, these will be repaired laparoscopically as well. I emphasized the importance of close follow-up, adherence to instructions and good communication. The surgery does not replace the need to change your lifestlyle which is the cause of the obesity problem. The surgery provides the motivation to try again to change your lifestyle, it reduces the appetite and make the transition to a better lifestyle easier and doubles the amount of weight you would lose compared to doing the lifestyle change without the surgery. You will need to be on a liquid diet with protein shakes for 2 weeks before surgery to maximize weight loss and boost your nutritional status to recover better from surgery and also for the first two weeks after surgery to let the stomach heal before we introduce other foods. After the first 2 weeks we will introduce protein bars and soft foods like scrambled eggs, cottage cheese and yogurt and after the 6th week will introduce meat, fish and cooked vegetables in small amounts. Over time you should be able to eat everything in small amounts. Side effects like nausea, vomiting, heartburn or abdominal pain are not common in the practice unless you are not following in the practice. This operation requires lifetime commitment to following in our practice and communication with me. You will much less weight and experience side effects if you don?t communicate or not following in the practice. Complications are rare and in our practice is about 1/10 of the national average. However, you can develop bleeding that may require transfusion (hasn?t happened for year in the practice), you may from complications (we did not have any deaths in the practice) and infections. Infections are usually a result of breakdown in communication or not understanding or following directions correctly. They are difficult to treat, they can happen during the first 6 weeks, they may require to be in the hospital for weeks or even months, not being able to eat by mouth and you may have drains and surgeries to try and correct the issue. Other risks and complications include possible conversion to an open procedure, leaks, small bowel obstruction, blood clots, cardiac, or pulmonary complications, as senior care complications such as ulcers, insufficient weight loss and vitamin deficiencies. 2. Nutritional counseling. Start with one premade EQUATE protein (buy at [employer] or [employer]) shake (8oz of Equate and NOT the whole bottle) at 8am-10am, one protein bar (Fit Crunch protein bar, buy at [employer], or [employer]) at 11am-1pm, another EQUATE protein (buy at [employer] or [employer]) shake (8oz of Equate and NOT the whole bottle) at 2pm-4pm, dinner at 5pm (10 forks of protein and 10 forks of salad/vegetables) and another [employer] protein bar at 7pm-9pm So you do 2 protein shakes, 2 protein bars and one meal per day. Meal to include lean meat (beef, fish, pork, turkey, chicken), or portuguese yogurt, or egg whites, or beans with a salad with olive oil and fruits (berries, pears, apples, kiwi). Avoid salt, breads, potatoes, rice, pasta, desserts. 3. Each shake would be drunk slowly, like coffee in a period of 2 hours. 4. Cut each bar in 4 pieces and eat each piece in 30min ?to make each bar last 2 hours. 5. I emphasized the importance of measuring accurately the food portion and measure it when serving the food in plate 6. The meal portions include 10 full-size forks of meat and 10 full-size forks of salad. You always eat the meat portion but you can replace up to 5 forks for salad/vegetables with rice, potatoes or pasta, or a fruit ?if you like. The less you do it the better weight loss will be. 7. One full-size fork is what it can be scooped on the fork without falling aside and not what can be bit with the fork. Use regular forks like those you find in a typical restaurant. 8.? Please buy the body composition scale we discussed and send me weight measurements as soon as possible and then once a week. Always include your diet and exercise plan. 9. The best choice would be to purchase a stationary bike at home that can track calories. If you get one, please start stationary bike at a resistance level of 4.0 Increase level by 1.0 every 3 min to a max level of 10.0. Stay at this level for 3 min and then return to level 4.0 and repeat same steps until 300 calories are burned. Goal is to burn 2000 calories per week on exercise 10. Goal is to lose at least 1.5-2lbs per week 11. Goal to lose 10% of your weight before surgery, which is about 30lbs. Ultimate weight goal: 267lbs before surgery 12. I ordered a medication to help you with the diabetes which is called Miguel. My office will try to authorize it. Please let me know when you receive it so I can give you a meal and exercise plan. Common side effects include nausea, vomiting, constipation, diarrhea, abdominal pain. Please let me know if you develop any of these symptoms. 13. Emphasized the importance of checking his blood glucose levels frequently and daily and to report to me any blood glucose below 100, so I can adjust his insulin and prevent hypoglycemic episodes 14. Emphasized the importance of monitoring the blood pressure daily in am when wakes up and two more times throughout the day. If systolic blood pressure is 110 mmHg, or less I explained to the patient that needs to notify me. Also I explained the symptoms of orthostatic hypotension (dizziness and lightheadedness) for which the patient also needs to notify me. 15. Please follow the diet plan exactly without any change. If you don't like something about the plan or you feel hungry you need to communicate with me so I can help you revise the plan. You should not change the plan yourself 16. To be scheduled for EGD to assess the stomach's anatomy. The possibility of biopsies was discussed. Patient needs to avoid use of NSAIDs and aspirin for 1 week prior to EGD. You must be on liquids only the day before your endoscopy. Risks of perforation and bleeding was discussed with the patient. This will be an outpatient procedure with IV sedation. 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
[2025-04-14 09:00] VITALS: BP 156/90; PULSE 100; TEMP 35.6; O2SAT 99; BMI 37.0
== END 2025-04-14 10:11 | disposition home or self-care (01) ==
LOC: HO.HBS 08:51
PROVIDERS: PCP Internal Medicine; Visit Provider Surgery
DX: E66.9 Obesity, unspecified (principal); Z68.37 Body mass index [BMI] 37.0-37.9, adult; N18.30 Chronic kidney disease, stage 3 unspecified; E11.65 Type 2 diabetes mellitus with hyperglycemia
CPT/HCPCS: 99204

== ENCOUNTER → 2025-04-14 08:51 | Outpatient (BNVA) | payer MEDICAID, SELFPAY ==
--- OUTSIDE RECORDS SUMMARY | 2025-04-13 09:45 | XMS_ITS | Encounter Summary ---
Author Organization [employer] Address [address] [place] [address] Care Team Providers Care Skiver Machine Name Role Phone Devi Moran MD Primary Care Provider Reason for Visit * Reason Comments Foot Pain Dehiscence of operat abrahan wound, initial encounterUlcer of midfoot, right, with necrosis of muscle Encounter Details Date Type Department Care Team (Late st Contact Info) Description 04/13/2025 9:45 AM EST Office Visit Orthopedic Surgery - [place] [address] [phone] Prabhjot Chavarria, DPJacquelin [address] [address] Calcaneal gait (Primary Dx); Left foot pain; History of amputation of left foot through metatarsal bone (CMS/HCC V24, CMS/HCC V28) Social History Tobacco Use Types Packs/Day Years Used Date Smoking Tobacco: Never Smokeless Tobacco: Never Alcohol Use Standard Drinks/Week Comments Never 0 (1 standard drink = 0.6 oz pur e alcohol) Interpersonal Safety Answer Date Record ed Physical Abuse Unrecognized value 01/14/2025 Verbal Abuse Unrecognized value 01/14/2025 Sex and Gender Information Value Date Recorded Sex Assigned at Male 01/06/2025 1:54 PM EDT Legal Sex Male 11:45 PM EST Gender Identity Male 01/06/2025 1:54 PM EDT Sexual Orientation Not on file documented as of this encounter Progress Notes * Prabhjot Chavarria DPM - 04/13/2025 9:45 AM EST IDENTIFIER: Lily is a 54 y.o. year old male who presents for consultation. CC: Left foot wound HPI: 53-year-old male presents office for bilateral foot wounds. Patient notes he has not had any dressings on his feet and has had not any wounds draining. Patient notes he continues to have some soreness on the bottoms of the heels but it is reducing with a recent soft orthotic he has been using. Patient is here for evaluation and treatment ROS: GENERAL: Pt denies nausea, fever, vomiting, [...] Morbid obesity with BMI of 40.0-44.9, adult ([facility] V24, [facility] V28) Type 2 diabetes mellitus with hyperglycemia, with long-term current use of insulin ([facility] V24, [facility] V28) Other acute osteomyelitis of left foot ([facility] V24, [facility] V28) SOCIAL HISTORY: Social History Tobacco Use Smoking status: Never Smokeless tobacco: Never Substance Use Topics Alcohol use: Never ACTIVE MEDICATIONS: No outpatient medications have been marked as taking for the 04/13/25 encounter (Office Visit) withPrabhjot Chavarria DPM. ALLERGIES: @ALL@ PHYSICAL EXAM: There were no [...] Sharp/dull sensation diminished, protective sensation diminished on [place]. Multipleperipheral neuropathies bilaterally. ORTHOPEDIC: Good muscle strength 5/5 of all flexors and extensors. Dorsi flexion of ankle ,10 degrees, plantar flexion WNL. No muscle atrophy. Patient continues to have decreased swelling around the bilateral ankles. DERMATOLOGICAL:. Patient has some continued bruising and callus ration to bilateral heels. Patient notes that this is from the waist walking. BIOMECHANICS: STJ ROM wnl, MTJ ROM wnl, 1st MPJ ROM wnl. IMPRESSION: 1. Calcaneal gait 2. Left foot pain 3. History of amputation of left foot through metatarsal bone ([facility] V24, [facility] V28) PLAN: Pt was seen and examined, history reviewed. Patient is doing well and is no longer needing cam boot. Patient was instructed to try using gel style heel cups to promote decrease pressure to the heels during ambulation and is close toed shoes. Patient does not have any open wounds or concerns for infection. Patient may return in 4 weeks for site check Prabhjot Chavarria DPM documented in this encounter Plan of Treatment Upcoming Encounters Date Type Department Care Team (Late st Contact Info) Description 05/10/2025 9:30 AM EST Office Visit Orthopedic Surgery - [place] [address] [phone] Prabhjot Chavarria DPM [address] [address] documented as of this encounter Visit Diagnoses Diagnosis Calcaneal gait- Primary Left foot pain Pain in soft tissues of limb History of amputation of left foot through metatarsal bone ([facility] V24, [facility] V28) documented in this encounter Care Teams Skiver Machine Relationship Specialty Start Date End Date Devi Moran MD [address] PCP - General Internal Medicine 09/11/21 documented as of this encounter
--- OUTSIDE RECORDS SUMMARY | 2025-04-14 12:15 | XMS_ITS | Clinical Summary ---
Author Organization [facility] Address [address] [place] [address] Phone Care Team Providers Care Log Marker Name Role Phone Devi Moran MD Primary [...] (6 to 49 Years) Discontinued 12/07/2018 Insurance [facility] [employer] [phone] [place] [address] [facility] [employer] [phone] [place] [address] Care Teams Log Marker Relationship Specialty Start Date End Date Devi Moran MD [facility] [address] PCP - General Internal Medicine 04/10/21
--- OUTSIDE RECORDS SUMMARY | 2025-04-14 12:15 | XMS_ITS | Clinical Summary ---
Author Organization [facility] Address [address] [place] [address] Care Team Providers Care Document Scanner Name Role Phone Unavailable Primary Care Provider [...] of 2) 09/09/2021 COVID-19 Vaccine ( - 2024-2 6 season) 2025 Influenza (#1) 2025 RSV (1 - 1-dose 75+ series) 09/09/2046 HPV Vaccine (No Doses Required) Completed Hep A Aged Out No longer eligi ble based on patient's age to complete this topic Hib Aged Out No longer eligi ble based on patient's age to complete this topic Meningococcal ACWY Aged Out No longer eligible based on patient's age to complete this topic
--- OUTSIDE RECORDS SUMMARY | 2025-04-14 12:15 | XMS_ITS | Clinical Summary ---
Author Organization [facility] Address [address] [place] [address] Phone Care Team Providers Care Funeral Director Name Role Phone Devi Moran MD Primary Care Provider [phone] Allergies No known active allergies Medications pen [...] 24 Units under the skin at bedtime. 2 Active insulin lispro (HumaLOG KwikPen Insulin) 100 [...] by mouth 1 (one) time each day. 4 Active losartan (COZAAR) 25 mg tablet Take 1 tablet (25 mg total) by mouth at bedtime. 5 Active Trulicity 0.75 mg/0.5 mL pen injector injection INJECT 1 PEN (0.75 MG) SUBCUTANEOUSLY ONCE WEEKLY 5 Active Active Problems Problem Noted Date Diagnosed Date Other acute osteomyelitis of left foot ([facility] V24, [facility] V28) 06/01/2024 Morbid obesity with BMI of 4 0.0-44.9, adult ([facility] V24, [facility] V28) 03/26/2024 Type 2 diabetes mellitus wit h hyperglycemia, with long-term current use of insulin ([facility] [place]24, [facility] V28) 03/26/2024 DDD (degenerative disc disease), lumbar [...] midfoot, l eft, with fat layer exposed ([facility] V24, [facility] V28) 10/18/2024 01/14/2025 Metatarsalgia of left foot 10/18/2024 0 01/14/2025 Encounters Date Type Department Care Team Description 04/13/2025 9:45 AM EST Office Visit Orthopedic [facility] [address] [phone] Prabhjot Chavarria, DPJacquelin Calcaneal gait (Primary Dx); Left foot pain; History of amputation of left foot through metatarsal bone ([facility] V24, [facility] V28) 03/30/2025 9:45 AM EDT Office Visit Orthopedic Surgery [place] [address] [phone] Prabhjot Chavarria, DPJacquelin Calcaneal gait (Primary Dx); Left foot pain; Superficial ulcerative lesion ([facility] V24, [facility] V28) 03/09/2025 9:30 AM EDT Office Visit Orthopedic [place] [address] [phone] Prabhjot Chavarria DPJacquelin Post-operative state (Primary Dx) 03/02/2025 1:15 PM EDT Office Visit Orthopedic [place] [address] [phone] Prabhjot Chavarria, DPM History of amputation of left foot through metatarsal bone ([facility] V24, [facility] V28) (Primary Dx); Cellulitis of left lower extremity; Dehiscence of operative wound, subsequent encounter; Ulcer of heel and midfoot, left, with fat layer exposed ([facility] V24, [facility] V28); Partial Achilles tendon tear, left, sequela 02/22/2025 2:00 PM EDT Office Visit Orthopedic [place] [address] [phone] Prabhjot Chavarria, DPM History of amputation of left foot through metatarsal bone ([facility] V24, [facility] V28) (Primary Dx); Cellulitis of left lower extremity; Dehiscence of operative wound, subsequent encounter; Ulcer of heel and midfoot, left, with fat layer exposed ([facility] V24, [facility] V28) 02/16/2025 11:00 AM EDT Office Visit Orthopedic Surgery [address] [phone] Prabhjot Chavarria DPM History of amputation of left foot through metatarsal bone ([facility] V24, [facility] V28) (Primary Dx); Cellulitis of left lower extremity; Dehiscence of operative wound, subsequent encounter; Ulcer of heel and midfoot, left, with fat layer exposed ([facility] V24, [facility] V28) 02/09/2025 10:30 AM EDT Office Visit Orthopedic Surgery [address] [phone] Prabhjot Chavarria DPM History of amputation of left foot through metatarsal bone ([facility] V24, [facility] V28) (Primary Dx); Cellulitis of left lower extremity; Dehiscence of operative wound, subsequent encounter; Midfoot ulceration, left, with necrosis of muscle ([facility] V24, [facility] V28) 02/02/2025 10:45 AM EDT Office Visit Orthopedic Surgery [address] [phone] Prabhjot Chavarria DPM Acute osteomyelitis of left foot ([facility] V24, [facility] V28) (Primary Dx); History of amputation of left foot through metatarsal bone ([facility] V24, [facility] V28); Cellulitis of left lower extremity; Dehiscence of operative wound, subsequent encounter; Midfoot ulceration, left, with necrosis of muscle ([facility] V24, [facility] V28) 01/27/2025 9:15 AM EDT Office Visit Orthopedic [address] [phone] Prabhjot Chavarria DPM History of amputation of left foot through metatarsal bone ([facility] V24, [facility] V28) (Primary Dx); Cellulitis of left lower extremity; Dehiscence of operative wound, subsequent encounter; Midfoot ulceration, left, with necrosis of muscle ([facility]/HCC V24, [facility]/HCC V28); Cellulitis of left foot 01/20/[address] [facility] [address] [phone] Prabhjot Chavarria DPM 01/14/2025 9:30 AM EDT - 01/14/2025 10:45 AM EDT Surgery [facility] OR [address] [place] [phone] Prabhjot Chavarria DPM EXCISION LEFT METATARSAL HEAD, WITH TENDOACHILLES LENGTHENING [82231 (CPT )] 01/14/2025 8:58 AM EDT Anesthesia Event [facility] OR [address] [place] [phone] Tj Coe MD 01/14/2025 7:52 AM EDT - 01/14/2025 10:51 AM EDT Hospital Encounter [facility] OR [address] [place] [phone] Prabhjot Chavarria DPM Ulcer of heel and midfoot, left, with fat layer exposed ([facility] V24, [facility] V28); Metatarsalgia of left foot Discharge Disposition: Home or Self Care 01/14/[address] [facility] [address] [phone] Prabhjot Chavarria DPM from Last 3 Months Immunizations Immunization Administration Dates Next Due Influenza trivalent, 0.5mL, preservative free (Fluarix; FluLaval; Fluzone) ages 6mo and older (Afluria) 3 years and older 03/08/2020,07/26/2019 Pneumococcal polysaccharide 23 valent (Pneumovax 23) 2yo and older 12/07/2018 Td Tetanus diptheria (Tdvax) 7yo and older 07/03 Surgical History Surgery Date Site/Laterality Comments CHOLECYSTECTOMY PROCEDURE: [place] LAPAROSCOPY SURG CHOLECYSTECTOMY OTHER SURGICAL HISTORY 05/01/2022 PROCEDURE: [place] ARTHRODESIS POSTERIOR INTERBODY 1 NTRSPC LUMBAR; COMMENT: L4-5 OLIF, pedicle screw fixation, Dr. Madsen TOE AMPUTATION Left Left 3rd toe amp FOOT SURGERY Left amputation l middle toe/ L3/R3SX SPINE SURGERY Medical History Medical History Date Comments Diabetes mellitus type 2, co ntrolled, with complications ([facility] V24, [facility] V28) DX:Diabetes mellitus type 2, controlled, with complications ([facility]) Essential hypertension DX:Essent ial hypertension CKD (chronic kidney disease) stage 3, GFR 30-59 ml/min ([facility] V24, [facility] V28) Lumbar degenerative disc disease Gout Hyperlipidemia Neuromuscular disorder ([facility] V24, [facility] V28) Joint pain gout as needed Family [...] AM EST Office Visit Orthopedic Surgery - [place] 250 175 [facility] [address] [place] [address] Prabhjot Chavarria, DPM 175 [facility] [address] [place] [address] Health Maintenance Due Date Last Done Comments Colorectal Cancer Screening: Colonoscopy 1971 Diabetes: Annual Retina Eye Exam 09/09/1981 Hepatitis B Vaccines (1 of 3 - 19+ 3-dose series) 09/09/1990 Zoster Vaccines (1 of 2) 09/09/1990 Pneumococcal Vaccine: 50+ Years (2 of 2 - PCV) 12/08/2019 12/07/2018 COVID-19 Vaccine (3 - Pfizer risk series) 11/01/2020 10/04/2020, 09/11/2020 RSV Immunization Adult Patients (1 - Risk 50-74 years 1-dose series) 09/09/2021 Cholesterol Screening (Lipid Panel) 05/12/2022 HIV Screening 05/12/2022 Hepatitis C Screening [...] this topic Medical Devices Implanted Type Area Frame Tender Device Identifier Shelf Expiration Date Model / Serial / Lot Spinal Hardware Spinal Hardware N/A: Back Procedures Procedure Name Priority Date/Time Associated Diagnosis Comments XR FOOT 3+ VIEWS LEFT Routine 02/02/2025 11:24 AM EDT Follow-up exam XR FOOT 3+ VIEWS LEFT Routine 01/27/2025 9:35 AM EDT Post-operative state XR FOOT 2 VIEWS LEFT Routine 01/14/2025 10:45 AM EDT TISSUE EXAM Routine 01/14/2025 9:29 AM EDT Ulcer of heel and midfoot, left, with fat layer exposed ([facility] V24, [facility] V28) Metatarsalgia of left foot CULTURE WOUND DEEP Routine 01/14/2025 9: 26 AM EDT Ulcer of heel and midfoot, left, with fat layer exposed ([facility] V24, [facility] V28) Metatarsalgia of left foot TN OSTECTOMY COMPLETE EXCISION OTHER METATARSAL HEAD 01/14/2025 8:58 AM EDT Ulcer of heel and midfoot, left, with fat layer exposed ([facility]/HCC V24, [facility] V28) Metatarsalgia of left foot Case Notes Mini C-Arm, ConMed Special Needs CASE MOVED UP/TIME CHGD FROM 11 TO 930AM PER ANALESE VIA TEAMS AC 12/29 BASIC METABOLIC PANEL Routine 06/29/2024 1:44 PM EST DEVANTE (acute kidney injury) (CMS/HCC V24) HM URINE ALBUMIN CREATININE RATIO Routine 10/30/2021 HEMOGLOBIN A1C Routine 10/30/2021 from Last 3 Months or Most Recently Relevant to Health Maintenance Results * XR Foot 3+ Views Left (02/02/2025 11:24 AM EDT) Only the most recent of2 resultswithin the time period is included. Anatomical Region Laterality Modality Lower Extremities, Foot Left Computed Radiography Narrative 04/11/2025 8:43 PM EST Left foot 3 views weightbearing: No new osteolysis or receding bone. Within normal limits since previous x-ray taken Prabhjot Chavarria DPJacquelin IMG XR PROCEDURES Final Res ult * XR Foot 2 Views Left (01/14/2025 10:45 AM EDT) Anatomical Region Laterality Modality Lower Extremities, Foot Left Radiogra phic Imaging 01/14/2025 10:4 8 AM EDT Impressions [...] Signed Date: 01/14/2025 10:52 ET Workstation ID: [id number] Transcribed By: Self Edit Transcribed Date: 01/14/2025 [...] Signed Date: 01/14/2025 10:52 ET Workstation ID: [id number] Transcribed By: Self Edit Transcribed Date: 01/14/2025 10:48 ET us Prabhjot Chavarria DPJacquelin IMG XR PROCEDURES Final Res ult * Tissue exam (01/14/2025 9:29 AM EDT) Final Diagnosis A. Foot, Left, soft tissue of midfoot-excision: -GANGRENOUS NECROSIS B. Foot, Left, clean margin of 3rd metatarsal-excisi on: -ACUTE OSTEOMYELITIS 01/18/2025 1:11 PM EDT [facility] Gross Description A. Foot, Left, dirty [...] 0.5 x 0.2 cm dusky tissue fragment. Patrol Police Sergeant sections are submitted in one cassette, three pieces. B. Foot, Left, clean margin of 3rd metatarsal: Labeled foot L, left victor hugo . Received in formalin is a 2.2 x 1.3 x 1.1 cm irregular lew-yellow bone fragment with moderate attached soft tissue. The cut surfaces are comprised of pink-yellow trabecular bone. A ambulatory services representative longitudinal cross-section is submitted in one cassette following decalcification, one piece. BIRD 01/18/2025 1:11 PM EDT [facility] Disclaimer Unless otherwise specified, all tissue is 10% NB formalin fixed and paraffin embedded. 01/18/2025 1:11 PM EDT [facility] Skin Structure of left foot / Unknown 01/14/2025 9:29 AM EDT 01/14/2025 2:23 PM EDT Cartilage specimen (specimen) Structure of left foot / Unknown 01/14/2025 9:32 AM EDT 01/14/2025 11:05 AM EDT us Prabhjot Chavarria DP LAB PATHOLOGY ORDERABLES Fi nal Result [facility] [address] [place] [address], * (ABNORMAL) Culture wound deep (01/14/2025 9:26 AM EDT) Culture, Wound Proteus mirabilis(A) KAREEM 01/17/2025 10:02 AM EDT [facility] Comment: The organism value for this result has been updated. These results have been appended to the previously preliminary verified report. This is an edited result. Previous organism was Gram negative bacilli on 01/15/2025 at 1107 EDT. Gram Stain Result No Polymorphonuclear leukocytes(A) 01/17/2025 10:02 AM EDT [facility] Gram Stain Result No epithelial cells seen(A) 01/17/2025 10:02 AM EDT [facility] Gram Stain Result Rare Gram positive cocci in pairs(A) 01/17/2025 10:02 AM EDT [facility] Swab Structure of left foot / Unknown 01/14/2025 9:26 AM EDT 01/14/2025 2:15 PM EDT Narrative [facility] - 01/17/2025 10:02 AM EDT Mixed [...] mirabilis Trimethoprim/Sulfamethoxazole KAREEM <=20 ug/ml: Susceptible Prabhjot Chavarria DPM LAB MICROBIOLOGY - GENERAL ORDERABLES Final Result [facility] [address] [place] [address], [place] [phone] * (ABNORMAL) Basic metabolic panel (06/29/2024 1:44 PM EST) Sodium 136 133 - 145 mmol/L LAB CHEMISTRY METHOD 06/29/2024 6:47 PM [facility] Potassium 5.0 3.5 - 5.5 mmol/L LAB CHEMISTRY METHOD 06/29/2024 6:47 PM [facility] Chloride 101 96 - 110 mmol/L LAB CHEMISTRY METHOD 06/29/2024 6:47 PM [facility] CO2 30 21 - 32 mmol/L LAB CHEMISTRY METHOD 06/29/2024 6:47 PM [facility] Anion Gap 5 3 - 11 LAB CHEMISTRY METHOD 06/29/2024 6:47 PM [facility] Glucose 111(H) 70 - 100 mg/dL LAB CHEMISTRY METHOD 06/29/2024 6:47 PM [facility] BUN 24 5 - 25 mg/dL LAB CHEMISTRY METHOD 06/29/2024 6:47 PM [facility] Creatinine 1.68(H) 0.70 - 1.30 mg/dL LAB CHEMISTRY METHOD 06/29/2024 6:47 PM [facility] eGFR 49(L) >=60 mL/min/1. 73m2 LAB CHEMISTRY METHOD 06/29/2024 6:47 PM [facility] Comment:Calculation based on the Chronic Kidney Disease Epidemiology Collaboration (CKD-EPI) equation refit without adjustment for race. BUN/Creatinine Ratio 14.3 LAB CHEMISTRY METHOD 06/29/2024 6:47 PM [facility] Calcium 10.0 8.5 - 10.5 mg/dL LAB CHEMISTRY METHOD 06/29/2024 6:47 PM [facility] Blood Venous blood specimen / Unknown Venipuncture / Unknown 06/29/2024 1:44 PM EST 06/29/2024 1:44 PM EST Wander Abdalla MD LAB BLOOD ORDERABLES Fi nal Result [facility] [address] [place] [address], [place] [phone] * HM Urine Albumin Creatinine Ratio (10/30/2021) Urine Albumin Creatinine Ratio Abstracted Historical Provider HEALTH MAINTENANCE Final Result * (ABNORMAL) Hemoglobin A1c (10/30/2021) Hemoglobin A1C 10.2(A) <=6.5 % Blood Venous blood specimen / Unknown Historical Provider LAB BLOOD ORDERABLES Brenda l Result from Last 3 Months or Most Recently Relevant to Health [place] [address] MEDICA[place] Advance Directives Documents on File Type Date Recorded Patient Patrol Police Sergeant Expl anation Health Care Decision (hx) 10/13/2023 [...] currently active code status orders. Care Teams Funeral Director Relationship Specialty Start Date End Date Devi Moran MD [address] [place] [address] PCP - General Internal Medicine 09/11/21
== END ==
LOC: CF 10:58
PROVIDERS: PCP Internal Medicine; Visit Provider Surgery
DX: E66.812 Obesity, class 2 (principal); Z68.37 Body mass index [BMI] 37.0-37.9, adult; E11.65 Type 2 diabetes mellitus with hyperglycemia; Z79.4 Long term (current) use of insulin
CPT/HCPCS: 99202

== ENCOUNTER → 2025-04-21 08:40 | Outpatient (REF) | payer MEDICAID, SELFPAY ==
--- NOTE | ~2025-04-21 | XR_ITS ---
EXAMINATION: XR CHEST CLINICAL INFORMATION: E66.01 - Morbid (severe) obesity due to excess calories COMPARISON: None available. TECHNIQUE: PA and lateral views FINDINGS: No hyperinflation. No consolidation, pleural effusion or pneumothorax. Cardiomediastinal silhouette size is normal. Multilevel thoracolumbar spondylosis with mild old compression deformities of the vertebral bodies. Vascular clips right upper quadrant abdomen likely prior cholecystectomy. XR/XR chest 2V IMPRESSION: No acute airspace disease. Multilevel spondylosis. Electronically signed by: Rome Khalil MD 04/21/2025 11:35 AM LEANN BERNARD
[2025-04-21 09:00] LABS: MANUAL DIFF FLAG NO
--- NOTE | 2025-04-21 09:02 | ECG_ITS ---
Test Reason : E66.01 Blood Pressure : */* mmHG Vent. Rate : 80 BPM Atrial Rate : 80 BPM P-R Int : 168 ms QRS Dur : 92 ms QT Int : 362 ms P-R-T Axes : 30 -18 -5 degrees QTcB Int : 417 ms Sinus rhythm with occasional Premature ventricular complexes Minimal voltage criteria for LVH, may be normal variant ( R in aVL ) Borderline ECG No previous ECGs available Referred By: Kirby Golden Electronically Signed By: EVIE WEBB
[2025-04-21 09:06] LABS: Hematocrit 37.8 % (42.0-52.0); Hemoglobin 12.2 g/dl (14.0-18.0); Imm Gran Abs Auto 0.01 X10*3/uL (0.00-0.03); Imm Gran Pct Auto 0.2 % (0.0-0.4); Lymphocytes Absolute Auto 1.0 X10*3/uL (1.2-4.9); Mean Corpuscular HGB Conc 32.3 g/dl (31.0-36.0); Mean Corpuscular Hemoglobin 27.5 pg (27.0-33.0); Mean Corpuscular Volume 85.3 fL (80.0-98.0); NRBC Abs Auto 0.000 X10*3/uL (0.0-0.012); NRBC Pct Auto 0.0 /100WBC (0.0-0.2); Platelet Count 168 X10*3/uL (160-400); Red Blood Count 4.43 X10*6/uL (4.60-5.80); White Blood Count 4.2 X10*3/uL (4.8-10.8)
[2025-04-21 09:37] LABS: Alanine Aminotransferase 31 U/L (0-40); Albumin Level 4.8 g/dL (3.5-5.0); Alkaline Phosphatase 99 U/L (39-117); Anion Gap 11 (12-20); Aspartate Amino Transferase 33 U/L (5-37); Blood Urea Nitrogen 40 mg/dL (9-16); Calcium 10.0 mg/dL (8.4-10.2); Carbon Dioxide 26 mmol/L (22-29); Chloride 109 mmol/L (96-108); Cholesterol 109 mg/dL (<200); Estimated Glomerular Filt Rate 42; HDL Cholesterol 24 mg/dL (>40); Iron 68 mcg/dL (45-160); Percent Iron Saturation 24 % (15-50); Potassium 5.3 mmol/L (3.3-5.1); Sodium 141 mmol/L (135-145); Total Iron Binding Capacity 278 mcg/dL (228-428); Total Protein 7.8 g/dL (6.5-8.0); Triglycerides 131 mg/dL (<150); Unsaturated Iron Binding 210 ug/dL
--- OUTSIDE RECORDS SUMMARY | 2025-04-21 09:49 | XMS_ITS | Clinical Summary ---
Author Organization [facility] Address [address] [place] [address] Care Team Providers Care Patrol Guard Name Role Phone Unavailable Primary Care Provider [...]
--- OUTSIDE RECORDS SUMMARY | 2025-04-21 09:49 | XMS_ITS | Clinical Summary ---
Author Organization [facility] Address [address] [place] [address] Phone Care Team Providers Care Skid Adzer Name Role Phone Devi Moran MD Primary Care Provider [phone] Allergies No known active allergies Medications carvedilol [...] (6 to 49 Years) Discontinued 12/07/2018 Insurance [facility] [employer] [phone] [place] [address] [facility] [employer] [phone] [place] [address] Care Teams Skid Adzer Relationship Specialty Start Date End Date Devi Moran MD [facility] [address] PCP - General Internal Medicine 04/10/21
[2025-04-21 09:55] LABS: Ferritin 152 ng/mL (20-250)
[2025-04-21 10:06] LABS: Folate 13.2 ng/mL (> or = 4.0); Vitamin B12 748 pg/mL (200-900)
== END ==
LOC: HO.CARD 08:40
PROVIDERS: PCP Internal Medicine; Visit Provider Surgery
DX: E66.01 Morbid (severe) obesity due to excess calories (principal); E11.22 Type 2 diabetes mellitus with diabetic chronic kidney disease; N18.30 Chronic kidney disease, stage 3 unspecified; E11.65 Type 2 diabetes mellitus with hyperglycemia; Z68.37 Body mass index [BMI] 37.0-37.9, adult; Z79.4 Long term (current) use of insulin
CPT/HCPCS: 36415; 71046; 80053; 80061; 82306; 82607; 82728; 82746; 83036; 83525; 83540; 84425; 84443; 84590; 84630; 85025; 86140; 93005

== ENCOUNTER → 2025-04-21 09:02 | Outpatient (BNV) | payer MEDICAID, SELFPAY | PROVIDERS: PCP Internal Medicine; Visit Provider Internal Medicine | DX: I49.3 Ventricular premature depolarization (principal) | CPT/HCPCS: 93010 ==

== ENCOUNTER → 2025-04-21 09:12 | Outpatient (BNV) | payer MEDICAID, SELFPAY | PROVIDERS: PCP Internal Medicine; Visit Provider Radiology Diagnostic Radiology | DX: E66.01 Morbid (severe) obesity due to excess calories (principal); M47.815 Spondylosis without myelopathy or radiculopathy, thoracolumbar region; Z68.37 Body mass index [BMI] 37.0-37.9, adult | CPT/HCPCS: 71046 ==

== ENCOUNTER 2025-06-01 06:39 | Day surgery (SDC) | payer MEDICAID, SELFPAY ==
--- OUTSIDE RECORDS SUMMARY | 2025-04-26 18:32 | XMS_ITS | Clinical Summary ---
Author Organization [facility] Address [address] [place] [address] Phone Care Team Providers Care Classics Professor Name Role Phone Devi Moran MD Primary Care Provider Allergies No known active allergies Medications pen [...] Date Other acute osteomyelitis of left foot ([facility] V24, [facility] V28) 06/01/2024 Morbid obesity with BMI of 4 0.0-44.9, adult ([facility] V24, [facility] V28) 03/26/2024 Type 2 diabetes mellitus wit h hyperglycemia, with long-term current use of insulin ([facility] V24, [facility] V28) 03/26/2024 DDD (degenerative disc disease), lumbar [...] midfoot, l eft, with fat layer exposed ([facility] V24, [facility] V28) 10/18/2024 01/14/2025 Metatarsalgia of left foot 10/18/2024 0 01/14/2025 Encounters Date Type Department Care Team Description 04/13/2025 9:45 AM EST Office Visit Orthopedic [facility] [address] [address] Prabhjot Chavarria, DPJacquelin Calcaneal gait (Primary Dx); Left foot pain; History of amputation of left foot through metatarsal bone ([facility] V24, [facility] V28) 03/30/2025 9:45 AM EDT Office Visit Orthopedic Surgery [place] [id number] [address] Prabhjot Chavarria, DPJacquelin Calcaneal gait (Primary Dx); Left foot pain; Superficial ulcerative lesion ([facility] V24, [facility] V28) 03/09/2025 9:30 AM EDT Office Visit Orthopedic [place] [address] [address] Prabhjot Chavarria DPJacquelin Post-operative state (Primary Dx) 03/02/2025 1:15 PM EDT Office Visit Orthopedic [place] [address] [phone] Prabhjot Chavarria, DPM History of amputation of left foot through metatarsal bone ([facility] V24, [facility] V28) (Primary Dx); Cellulitis of left lower extremity; Dehiscence of operative wound, subsequent encounter; Ulcer of heel and midfoot, left, with fat layer exposed ([facility] V24, [facility] V28); Partial Achilles tendon tear, left, sequela 02/22/2025 2:00 PM EDT Office Visit Orthopedic [place] [address] [address] Prabhjot Chavarria, DPM History of amputation of left foot through metatarsal bone ([facility] V24, [facility] V28) (Primary Dx); Cellulitis of left lower extremity; Dehiscence of operative wound, subsequent encounter; Ulcer of heel and midfoot, left, with fat layer exposed ([facility] V24, CMS/[facility] V28) 02/16/2025 11:00 AM EDT Office Visit Orthopedic Surgery [address] [phone] Prabhjot Chavarria DPM History of amputation of left foot through metatarsal bone (CMS/HCC V24, CMS/HCC V28) (Primary Dx); Cellulitis of left lower extremity; Dehiscence of operative wound, subsequent encounter; Ulcer of heel and midfoot, left, with fat layer exposed ([facility] V24, CMS/HCC V28) 02/09/2025 10:30 AM EDT Office Visit Orthopedic Surgery [address] [phone] Prabhjot Chavarria DPM History of amputation of left foot through metatarsal bone ([facility] V24, [facility] V28) (Primary Dx); Cellulitis of left lower extremity; Dehiscence of operative wound, subsequent encounter; Midfoot ulceration, left, with necrosis of muscle ([facility] V24, CMS/HCC V28) 02/02/2025 10:45 AM EDT Office Visit Orthopedic Surgery [address] [phone] Parbhjot Chavarria DPM Acute osteomyelitis of left foot ([facility] V24, CMS/HCC V28) (Primary Dx); History of amputation of left foot through metatarsal bone ([facility] V24, CMS/HCC V28); Cellulitis of left lower extremity; Dehiscence of operative wound, subsequent encounter; Midfoot ulceration, left, with necrosis of muscle ([facility] V24, CMS/HCC V28) 01/27/2025 9:15 AM EDT Office Visit Orthopedic [address] [phone] Prabhjot Chavarria DPM History of amputation of left foot through metatarsal bone ([facility] V24, [facility] V28) (Primary Dx); Cellulitis of left lower extremity; Dehiscence of operative wound, subsequent encounter; Midfoot ulceration, left, with necrosis of muscle ([facility] V24, [facility] V28); Cellulitis of left foot from Last 3 Months Immunizations Immunization Administration Dates Next Due Influenza trivalent, 0.5mL, preservative free (Fluarix; FluLaval; Fluzone) ages 6mo and older (Afluria) 3 years and older 03/08/2020,07/26/2019 Pneumococcal polysaccharide 23 valent (Pneumovax 23) 2yo and older 12/07/2018 Td Tetanus diptheria (Tdvax) 7yo and older 07/03 Surgical History Surgery Date Site/Laterality Comments CHOLECYSTECTOMY PROCEDURE: [place] LAPAROSCOPY SURG CHOLECYSTECTOMY OTHER SURGICAL HISTORY 05/01/2022 PROCEDURE: [place] ARTHRODESIS POSTERIOR INTERBODY 1 NTRSPC LUMBAR; COMMENT: L4-5 OLIF, pedicle screw fixation, Dr. Madsen TOE AMPUTATION Left Left 3rd toe amp FOOT SURGERY Left amputation l middle toe/ L3/R3SX SPINE SURGERY Medical History Medical History Date Comments Diabetes mellitus type 2, co ntrolled, with complications ([facility] V24, [facility] V28) DX:Diabetes mellitus type 2, controlled, with complications ([facility]) Essential hypertension DX:Essent ial hypertension CKD (chronic kidney disease) stage 3, GFR 30-59 ml/min ([facility] V24, [facility] V28) Lumbar degenerative disc disease Gout Hyperlipidemia Neuromuscular disorder ([facility] V24, [facility] V28) Joint pain gout as needed Family [...] AM EST Office Visit Orthopedic Surgery - [place] [phone] [phone] Prabhjot Chavarria, DPJacquelin [address] [address] Health Maintenance Due Date Last Done Comments [...] this topic Medical Devices Implanted Type Area Oracle Applications Analyst Device Identifier Shelf Expiration Date Model / Serial / Lot Spinal Hardware Spinal Hardware N/A: Back Procedures Procedure Name Priority Date/Time Associated Diagnosis Comments XR FOOT 3+ VIEWS LEFT Routine 02/02/2025 11:24 AM EDT Follow-up exam XR FOOT 3+ VIEWS LEFT Routine 01/27/2025 9:35 AM EDT Post-operative state BASIC METABOLIC PANEL Routine 06/29/2024 1:44 PM [...] mmol/L LAB CHEMISTRY METHOD 06/29/2024 6:47 PM [facility] Potassium 5.0 3.5 - 5.5 mmol/L LAB CHEMISTRY METHOD 06/29/2024 6:47 PM [facility] Chloride 101 96 - 110 mmol/L LAB CHEMISTRY METHOD 06/29/2024 6:47 PM [facility] CO2 30 21 - 32 mmol/L LAB CHEMISTRY METHOD 06/29/2024 6:47 PM [facility] Anion Gap 5 3 - 11 LAB CHEMISTRY METHOD 06/29/2024 6:47 PM [facility] Glucose 111(H) 70 - 100 mg/dL LAB CHEMISTRY METHOD 06/29/2024 6:47 PM [facility] BUN 24 5 - 25 mg/dL LAB CHEMISTRY METHOD 06/29/2024 6:47 PM [facility] Creatinine 1.68(H) 0.70 - 1.30 mg/dL LAB CHEMISTRY METHOD 06/29/2024 6:47 PM [facility] eGFR 49(L) >=60 mL/min/1. 73m2 LAB CHEMISTRY METHOD 06/29/2024 6:47 PM [facility] Comment:Calculation based on the Chronic Kidney Disease Epidemiology Collaboration (CKD-EPI) equation refit without adjustment for race. BUN/Creatinine Ratio 14.3 LAB CHEMISTRY METHOD 06/29/2024 6:[address] [facility] Calcium 10.0 8.5 - 10.5 mg/dL LAB CHEMISTRY METHOD 06/29/2024 6:[address] [facility] Blood Venous blood specimen / Unknown Venipuncture / Unknown 06/29/2024 1:44 PM EST 06/29/2024 1:44 PM EST Wander Abdalla MD LAB BLOOD ORDERABLES Fi nal Result [facility] [address] [place] [address], [place] [phone] * Urine Albumin Creatinine Ratio (10/30/2021) Urine Albumin Creatinine Ratio Abstracted Historical Provider HEALTH MAINTENANCE Final Result * (ABNORMAL) Hemoglobin A1c (10/30/2021) Hemoglobin A1C 10.2(A) <=6.5 % Blood Venous blood specimen / Unknown Historical Provider LAB BLOOD ORDERABLES Brenda l Result from Last 3 Months or Most Recently Relevant to Health [place] [address] MEDICA[place] Advance Directives Documents on File Type Date Recorded Patient Learning And Development Manager Expl anation Health Care Decision (hx) 10/13/2023 [...] currently active code status orders. Care Teams Classics Professor Relationship Specialty Start Date End Date Devi Moran MD [facility] [address] PCP - General Internal Medicine 09/11/21
--- OUTSIDE RECORDS SUMMARY | 2025-04-26 18:32 | XMS_ITS | Clinical Summary ---
Author Organization [facility] Address [address] [place] [address] Care Team Providers Care Patient Account Representative Name Role Phone Unavailable Primary Care Provider [...]
--- OUTSIDE RECORDS SUMMARY | 2025-04-26 18:32 | XMS_ITS | Clinical Summary ---
Author Organization [facility] Address [address] [place] [address] Phone Care Team Providers Care Weather Forcaster Name Role Phone Devi Moran MD Primary [...] (6 to 49 Years) Discontinued 12/07/2018 Insurance [facility] [phone] [place] [address] [facility] [phone] [place] [address] Care Teams Weather Forcaster Relationship Specialty Start Date End Date Devi Moran MD [facility] [address] PCP - General Internal Medicine 04/10/21
--- NOTE | 2025-05-25 11:28 | HO.ANESPROP2 ---
Documented by User: Claire Beck NP 05/25/25 11:30 HPI - Anesthesia Eval Consult details Narrative: 54yo M for Upper Endoscopy BMI 44.6 Anesthesia Pre-Procedure Meds Is the patient on any of the following meds?: GLP1/DPP4 PMFSH Active Problems Active Problems: All Active Problems BMI 37.0-37.9, adult (Acute) Obesity (Acute) Impingement syndrome of left shoulder (Acute) Arthritis of left acromioclavicular joint (Acute) CKD (chronic kidney disease) stage 3, GFR 30-59 ml/min (Acute) Uncontrolled type 2 diabetes mellitus with hyperglycemia, with long-term current use of insulin (Acute) Intervertebral disc disease (Acute) Multilevel degenerative disc disease (Acute) Muscle spasm (Acute) Spinal stenosis at L4-L5 level (Acute) Lumbar facet arthropathy (Acute) Past Medical History Medical History BMI 37.0-37.9, adult Obesity Uncontrolled type 2 diabetes mellitus with hyperglycemia, with long-term current use of insulin Amputation of toe of left foot Family History Family History Mother Diabetes Father Lung cancer Surgical History Surgical History Hx of cholecystectomy History of lumbar surgery Hx of foot surgery Social History Social History Household Members: Significant Other Housing: House Are you a primary administrator health care facility to a significant other at home: No Do you presently have visiting nurse or other home services: No Alcohol intake: current Alcohol intake frequency: holidays/special occasions only Patient Tobacco Use Status: Never used Tobacco Have you been hit, kicked, punched, or otherwise hurt by someone within the past year? If so, by whom?: No Are you DNR?: No Advance Directives: No Advance Directives Information Provided: Yes service: No Current occupational status: unemployed Current occupation: right hand dominant Meds Allergies Allergy/AdvReac Type Severity Reaction Status Date / Time No Known Allergies Allergy Verified 06/01/25 07:24 Home Medications ?Medication ?Instructions ?Recorded ?Confirmed ?Last Taken ?Type amlodipine 10 mg tablet 10 mg PO DAILY 10/30/21 05/30/25 Unknown History carvedilol 25 mg tablet 25 mg PO BID 10/30/21 05/30/25 Unknown History insulin glargine 100 unit/mL (3 unit subcut 10/30/21 04/14/25 Unknown History mL) subcutaneous pen (Lantus Solostar U-100 Insulin) colchicine 0.6 mg tablet 0.6 mg PO BID PRN gout pain 10/07/23 05/30/25 Unknown History aspirin 81 mg tablet,delayed 81 mg PO DAILY 03/22/24 05/30/25 05/29/25 History release indomethacin 50 mg capsule 50 mg PO TID PRN gout pain 03/22/24 05/30/25 Unknown History rosuvastatin 40 mg tablet 40 mg PO BEDTIME 03/22/24 05/30/25 Unknown History insulin aspart U-100 100 unit/mL 8 unit subcut TID 09/28/24 05/30/25 Unknown History (3 mL) subcutaneous pen gabapentin 300 mg capsule 300 mg PO TID PRN Pain 03/21/25 05/30/25 Unknown History Exam Pertinent Lab Results Pertinent Lab Results: Laboratory Tests 04/21/25 08:59 WBC 4.2 L Hgb 12.2 L Hct 37.8 L Plt Count 168 Sodium 141 Potassium 5.3 H Chloride 109 H Carbon Dioxide 26 BUN 40 H Creatinine 1.70 H Narrative Narrative: EKG 04/2025 Vent. Rate : 80 BPM Atrial Rate : 80 BPM P-R Int : 168 ms QRS Dur : 92 ms QT Int : 362 ms P-R-T Axes : 30 -18 -5 degrees QTcB Int : 417 ms Sinus rhythm with occasional Premature ventricular complexes Minimal voltage criteria for LVH, may be normal variant ( R in aVL ) Borderline ECG No previous ECGs available Assessment and Plan Assessment Anesthesia Assessment: Chart Reviewed Documented by User: Annette Cardoza MD 06/01/25 07:56 [facility] Past Medical History Medical History BMI 37.0-37.9, adult Obesity Uncontrolled type 2 diabetes mellitus with hyperglycemia, with long-term current use of insulin Amputation of toe of left foot Family History Family History Mother Diabetes Father Lung cancer Surgical History Surgical History Hx of cholecystectomy History of lumbar surgery Hx of foot surgery History of Problems with Anesthesia: No Social History Social History Household Members: Significant Other Housing: House Are you a primary administrator health care facility to a significant other at home: No Do you presently have visiting nurse or other home services: No Alcohol intake: current Alcohol intake frequency: holidays/special occasions only Patient Tobacco Use Status: Never used Tobacco Have you been hit, kicked, punched, or otherwise hurt by someone within the past year? If so, by whom?: No Are you DNR?: No Advance Directives: No Advance Directives Information Provided: Yes service: No Current occupational status: unemployed Current occupation: right hand dominant Meds Allergies Allergy/AdvReac Type Severity Reaction Status Date / Time No Known Allergies Allergy Verified 06/01/25 07:24 Home Medications ?Medication ?Instructions ?Recorded ?Confirmed ?Last Taken ?Type amlodipine 10 mg tablet 10 mg PO DAILY 10/30/21 05/30/25 Unknown History carvedilol 25 mg tablet 25 mg PO BID 10/30/21 05/30/25 Unknown History insulin glargine 100 unit/mL (3 unit subcut 10/30/21 04/14/25 Unknown History mL) subcutaneous pen (Lantus Solostar U-100 Insulin) colchicine 0.6 mg tablet 0.6 mg PO BID PRN gout pain 10/07/23 05/30/25 Unknown History aspirin 81 mg tablet,delayed 81 mg PO DAILY 03/22/24 05/30/25 05/29/25 History release indomethacin 50 mg capsule 50 mg PO TID PRN gout pain 03/22/24 05/30/25 Unknown History rosuvastatin 40 mg tablet 40 mg PO BEDTIME 03/22/24 05/30/25 Unknown History insulin aspart U-100 100 unit/mL 8 unit subcut TID 09/28/24 05/30/25 Unknown History (3 mL) subcutaneous pen gabapentin 300 mg capsule 300 mg PO TID PRN Pain 03/21/25 05/30/25 Unknown History Exam Airway Mallampati Class: III TM Dist: >3cm Neck ROM: Full Partial: Upper and Lower Loose/Missing/Broken Teeth: Yes, Upper and Lower Heart: RRR Lungs: CTA Assessment and Plan Assessment Anesthesia Assessment: Anesthesia Plan Discussed Final Anesthetic Review History of Problems with Anesthesia: No NPO: Yes ASA Class: III Final Preanesthetic Review: Meds/Allgs Chart Reviewed, Consent Obtained/Reviewed and Anes Risks/Benef Reviewed Patient Risk: Intermediate Procedure Risk: Intermediate Anesthetic Plan Anesthetic Plan: MAC: Disposition: Standard PACU
[2025-05-30 09:56] VITALS: BMI 36.9
[2025-06-01 07:01] VITALS: BMI 35.2
[2025-06-01] MEDS: Lactated Ringers 1,000 ML 80 ML IVCONT (07:11)
[2025-06-01 07:16] LABS: Glucose, Whole Blood 94 mg/dL (60-115)
[2025-06-01 07:22] VITALS: BP 141/84; PULSE 87; RESP 18; TEMP 36.7; O2SAT 98
--- NOTE | 2025-06-01 08:11 | MHC.SHP ---
Pre-Procedural Eval Section A - 24 Hr Update-Section A only Date of Service: 06/01/25 The patient is an INPATIENT: No The patient has been examined within 24 hours of the surgical procedure. The History & Physical has been completed within 30 days and I have reviewed it.: Yes Section B - Complete if H&P > 30 days Chief Complaint: Obesity, unspecified Relevant Family History (Specify if Yes): No Relevant Social History: None Present Medications: None Medical History: No relevant PMH History of Previous Operations: No relevant previous surgery Allergies: Allergies Allergy/AdvReac Type Severity Reaction Status Date / Time No Known Allergies Allergy Verified 06/01/25 07:24 Review of Systems Sugical H&P ROS: Negative: Constitution, Cardiovascular, Respiratory, Neurological, Psychiatric, Hem-Onc, Allergic/Immunologic, Gastrointestinal, Genitourinary, Musculoskeletal, Integumentary, Endocrine and Eyes/Ears/Nose/Throat Exam Surgical H&P Exam: Normal: HEENT, Normal: Heart, Normal: Lungs, Normal: Extremities, Normal: Abdomen, Normal: Skin and Normal: Neurological Plan Diagnosis/Plan: Unchanged (EGD to assess the stomach's anatomy. Risks of bleeding and perforation were discussed with the patient and he is in agreement with the plan.) I have reviewed the history and physical and performed a pertinent physical examination on my patient. No changes have occurred unless specified. Time Spent With Patient Time: Total time managing care of this patient today ____ minutes.
--- NOTE | 2025-06-01 08:13 | PM.OP ---
Brief Operative Note Date of Service: 06/01/25 Pre-op diagnosis: Obesity Post-op diagnosis: same Procedure: PROCEDURE DATE: 06/01/2025 PREOPERATIVE DIAGNOSIS: Obesity POSTOPERATIVE DIAGNOSIS: ?Same as above. Small diaphragmatic hernia PROCEDURE: [id number] with biopsies Surgeon: ?Chet Golden M.D.. Ph.D. Market Research Executive: None ? Anesthesia: IV sedation Estimated blood loss: ?Minimal FINDINGS AND PROCEDURE: ? OPERATIVE INDICATIONS: ?The patient is a 54 year old male known to me who is interested in bariatric surgery. Based on this information I recommended an upper endoscopy to evaluate the patient's symptoms. Risks and complications of the surgery were discussed with the patient in advance particularly the possibility of perforation or bleeding that may require surgical intervention. The patient understood the risks and was in agreement with the plan. ? PROCEDURE: After informed consent was obtained by the patient, the patient was ?transferred to the Operating Room and was placed in the supine position.? After successful induction of IV sedation, a mouth block was inserted and the patient was placed in the left lateral decubitus position. An upper endoscopy was performed next, the oropharynx and esophagus appeared within the normal limits. There was a reducible small hiatal hernia. The z-line was smooth. Two biopsies were obtained from the distal esophagus 2-3 cm proximal to the GE junction and two additional biopsies from the GE junction. The stomach was entered and it appeared to be of normal size. There was no gastritis. There was no stricture or ulcer. A biopsy was obtained from the gastric fundus and the antrum. No significant bleeding was noted from any of the biopsy sites. Retroflexion of the scope confirmed the presence of a small dipahragmatic hernia. The scope was then advanced into the duodenum all the way to the 4th portion, which appeared to be normal as well. At that point the duodenum ?and the stomach were decompressed and the scope was withdrawn from the patient's mouth. The patient extubated and was transferred in stable condition to the Recovery Room for further care. I was present and performed all steps of the procedure. There were no residents to assist with this case. Chet Golden M.D., Ph.D. Surgeon: Kirby Golden MD Anesthesia: MAC Was an Market Research Executive used for this Procedure?: No Estimated blood loss (mL): 0 IV fluids (mL): 400 Pathology: other (1) antrum x1, 2) fundus x1, 3) GE junction x2, 4) distal esophagus x2) Condition: stable Disposition: PACU
[2025-06-01 08:35] VITALS: BP 115/69; PULSE 94; RESP 18; TEMP 36.4; O2SAT 94
[2025-06-01 08:50] VITALS: BP 105/81; PULSE 84; RESP 19; TEMP 36.7; O2SAT 96
[2025-06-01 08:58] VITALS: BP 123/79
== END 2025-06-01 09:44 | disposition home or self-care (01) ==
PROVIDERS: PCP Internal Medicine; Visit Provider Surgery
PROC: 0DJ08ZZ Inspection of Upper Intestinal Tract, Via Natural or Artificial Opening Endoscopic (ICD-10-PCS; CPT 43235; principal; 2025-06-01 08:30)
DX: E66.01 Morbid (severe) obesity due to excess calories (principal); Z68.37 Body mass index [BMI] 37.0-37.9, adult; K44.9 Diaphragmatic hernia without obstruction or gangrene; E11.65 Type 2 diabetes mellitus with hyperglycemia; Z79.4 Long term (current) use of insulin; Z79.85 Long-term (current) use of injectable non-insulin antidiabetic drugs; Z79.82 Long term (current) use of aspirin; Z79.899 Other long term (current) drug therapy; Z89.422 Acquired absence of other left toe(s); Z90.49 Acquired absence of other specified parts of digestive tract; Z98.890 Other specified postprocedural states; Z56.0 Unemployment, unspecified
CPT/HCPCS: 43239; 82947; 88305; 88313; 88342; J2704

== ENCOUNTER → 2025-06-01 06:39 | Outpatient (BNV) | payer MEDICAID, SELFPAY | PROVIDERS: PCP Internal Medicine; Visit Provider Surgery | DX: E66.812 Obesity, class 2 (principal); Z68.37 Body mass index [BMI] 37.0-37.9, adult; K44.9 Diaphragmatic hernia without obstruction or gangrene | CPT/HCPCS: 43239 ==